=== PATIENT | female | born 1965 | race Caucasian/White ===

== ENCOUNTER 2022-03-27 11:02 | Outpatient (CLI) | payer BC, SELFPAY ==
--- OUTSIDE RECORDS SUMMARY | 2022-04-28 16:45 | XMS_ITS | Clinical Summary ---
:1965 Author Organization [facility] [facility] [employer] [facility] [place] [address] Care Team Providers Name Role Phone Julia Butts MD Primary Care Provider [phone] Allergies No known active allergies Medications Medication Sig Dispensed Refills Start Date End Date Status MULTIVITAMIN take 1 tablet 100 0 04/22/2009 Ac tive TABIndications: by oral route Well female exam once daily with routine with food gynecological exam naproxen 500 mg 60 tablet 0 08/26/2020 Active (NAPROSYN) 500 mg Scheduled tabletIndications: twice daily x Wrist pain, acute, 5 days, then right, Wrist pain, twice daily as left, Right needed forearm pain Advair Diskus Inhale 1 Puff 60 Each 5 01/25/2022 A ctive 250-50 mcg/dose by mouth twice diskus daily 12 hours inhalerIndications apart. : COPD with chronic bronchitis (HC) ipratropium-albute Inhale 1 Puff 4 g 11 02/04/2022 Active roL (combivent by mouth 4 respimat) (20-100 times daily if mcg each needed for actuation) mist Shortness Of inhalerIndications Breath or : Exacerbation of Wheezing. asthma, unspecified asthma severity, unspecified whether persistent ipratropium Inhale 2 Puffs 25.8 g 11 02/04/2022 Ac tive (Atrovent HFA) 17 by mouth 4 mcg/actuation times daily if inhalerIndications needed for : Moderate Shortness Of persistent asthma Breath. without complication albuterol Inhale 3 mL 90 mL 3 02/04/2022 Active (PROVENTIL) 0.083 (2.5 mg) via a % neb nebulizer solutionIndication every 6 hours s: Upper if needed for respiratory tract Shortness of infection, Breath 1st unspecified type, choice. COPD exacerbation (HC) varenicline Take 1 mg by 112 Tablet 0 02/04/2022 Act juan carlos (CHANTIX) 1 mg mouth in the tabletIndications: morning and 1 Tobacco abuse mg in the evening. Take with meals. varenicline Days 1-3 take 1 Packet 0 02/04/2022 04/05/20 Dis continued (CHANTIX DOSEPAK) 0.5mg once 22 ( *Med 0.5 mg (11)- 1 mg daily; Days complete/Regimen (42) 4-7 take 0.5mg compl ete/Level tabletIndications: twice daily; of care change) Routine general then increase medical to 1mg twice examination at a daily. Take health care with meals. facility polyethylene Drink 3 liters 4000 mL 0 03/10/2022 04/05/20 D iscontinued glycol-electrolyte the day before (*Med (GOLYTELY) the procedure compl ete/Regimen 236-22.74-6.74 and 1 liter 6 c omplete/Level -5.86 gram hours prior to of c are change) suspensionIndicati the procedure ons: Encounter for screening colonoscopy Active Problems Problem Noted Date Pap smear for cervical cancer screening 2022 Overview: 01/2022 NIL/HPV Negative Plan: Pap and HPV 01/2027 Colon polyp 03/25/2022 Overview: Colonoscopy 03/2022 SSA, repeat in 5 year s Reactive airway disease with wheezing, mild intermitte nt, uncomplicated 11/23/2017 Lipoma of neck 11/19/2012 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 02/28/2008 Supraspinatus tendonitis 02/28/2008 Personal history of tobacco use, presenting hazards to health 10/19/2006 Encounters Date Type Specialty Care Team Description 2022 Ancillary Procedure 2022 Travel 04/06/2022 Patient Outreach Monserrat Falcon, ACT Care Nv KIMBERLY Campbell, ACM (Engagem ent outreach attempt #3 of 3 /) 04/05/2022 Office Visit RunJulia reyna [facility] F/ U (DOD: MD Yaz 03/30/22, hypoxi a, acute asthma exacerba tion) 04/05/2022 Travel 04/04/2022 Patient Outreach Monserrat Falcon ACT Care ZENAIDA GarciaW, ACM (Engagem ent outreach attempt #2 of 3 via Way[employer] message /) 04/04/2022 Patient Outreach Monserrat Falcon ACT Care ZENAIDA GarciaW, ACM (Engagem ent outreach attempt #1 of 3 /) 03/31/2022 Patient Outreach Joy Townsend Prim alba RN Care RN Management; [facility] F/U (Post hospital) 03/30/2022 Orders Only Scanner <No scans attac hed> 03/27/2022 Orders Only Scanner <No scans attac hed> 03/27/2022 Orders Only Scanner <No scans attac hed> 03/22/2022 Procedure Only Vasu Parker Procedure (C olonoscopy) MD Jassi 03/22/2022 Travel 03/16/2022 Telephone Vasu Parker Appointment Re pepe Keene MD (Colonoscopy) 03/11/2022 Telephone Vasu Parker RESCHEDULED CO LONOSCOPY MD Jassi 03/10/2022 Telephone Vasu Parker Appointment MD Jassi 03/01/2022 Telephone Julia Butts Colorectal Cancer MD [...] Other 1 GRANDFATHER Diabetes Other 2 GRANDMOTHER Cancer-ovarian No Family History Relation Name Status Comments Father Mother (Age 60) cancer Other 1 Other 2 Social History Tobacco Use Types Packs/Day Years Used Date Former Smoker Cigarettes 0.5 Quit: 03/01/20 Smokeless Tobacco: Never Used Tobacco Cessation: Ready to Quit: No; Co unseling Given: Yes Alcohol Use Standard Drinks/Week Comments Yes 3 (1 standard drink = 0.6 oz [...] in contact with No / Unsu re 2022 10:09 AM CDT someone who was confirmed or suspected to have Coronavirus/COVID-19? 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 Respiratory Rate 12 11/27/2019 12:31 PM CDT Oxygen Saturation 96% 04/05/2022 8:16 AM CDT Inhaled Oxygen Concentration - - Weight 56.2 kg (124 lb) 04/05/2022 8:16 AM CDT Height 154.9 cm (5' 1) 02/04/2022 11:38 AM CDT Body Mass Index 23.43 02/04/2022 11:38 AM CDT Plan of Treatment Health Maintenance Due Date Last Done Comments Zoster (shingles) series for age 1004/07/2015 50+ (1 of 2) COVID-19 vaccine series (4 - 08/03/2021 06/08/2021, 021, Booster for Pfizer series) 07/23/2020 Influenza for age 50-64 03/03/2022 06/02/2017 Tetanus booster 11/13/2022 11/13/2012, 03/23/2004 BMI (ht and wt on same day) for 02/04/2023 02/04/2022, 06/10/2019, age 18+ 11/23/2017, Additional history exists Depression screening for age 12+ 02/04/2023 02/04/2022, 10/2019, 11/23/2017, Additional history exists Mammogram for age 45-75 2023 2022, 02/04/2021, 07/04/2019, Additional history exists Lipids for age 45-75 02/04/2027 02/04/2022, 05/13/2009 Pap test for age 21-65 02/04/2027 02/04/2022, 02/04/2022, 03/24/2015, Additional history exists Colonoscopy through age 75 03/22/2027 03/22/2022, Tdap Completed 11/13/2012 Hepatitis C screening for age Completed 02/04/2022 18-79 Pneumococcal series for age 19-64 Completed 02/04/2022 Procedures Procedure Name Priority Date/Time Associated Comments Diagnosis XR MAMMO RAFAELA BILAT Routine 2022 10:30 Encounter for Res ults for this SCREEN AM CDT screening procedure are i n mammogram for the results malignant neoplasm section. of breast SCAN-LABORATORY REPORT 03/30/2022 12:00 R esults for this AM CDT procedure are i n the results section. SCAN-CT INTERPRETATION 03/27/2022 12:00 AM CDT SCAN-RADIOLOGY REPORT 03/27/2022 12:00 Re sults for this AM CDT procedure are i n the results section. PATH TISSUE EXAM Routine 03/22/2022 2:25 PM Positive Resul ts for this CDT colorectal cancer procedure are in screening using the results DNA-based stool section. test COLONOSCOPY DIAGNOSTIC Routine 03/22/2022 1:12 PM Positive CDT colorectal cancer screening using DNA-based stool test COLONOSCOPY [...] REFLEX Routine 02/04/2022 1:00 PM Screening for Results for this MEASURED LDL CDT lipid disorders procedure ar e in the results section. REVENUE CYCLE ADMINISTRATOR THIN PREP PAP Routine 02/04/2022 12:30 Pap smear for Resul ts for this SCREEN IMAGED PM CDT cervical cancer procedure a re in screening the results section. HPV THIN PREP Routine 02/04/2022 12:30 Pap smear for Results f or this PM CDT cervical cancer procedure ar e in screening the results section. from Last 3 Months Results XR MAMMO RAFAELA BILAT SCREEN (2022 10:30 AM CDT) Anatomical Region Laterality Modality BREASTS, Breast Left, Breast Right Bilateral Mammo graphy Specimen (Source) Anatomical Location Collection Method / Collectio n Time Received Time / Laterality Volume Impressions 2022 2:59 PM CDT ??There is no radiographic evidence for malignancy. ??Recommend annual mammograms. MAMMOGRAM ASSESSMENT: ??ACR 1 Negative PATIENTS: You will also receive a letter with your examination results in an easy to read format. ??If you have qu estions about your results, please contact your referring provider. Narrative 2022 2:59 PM CDT For Patients: As a result of the Century Cures Act, medical imaging exams and procedure reports are released immediately into your electronic medical record. You may view this report before your referring provider. If you have questions, please contact [facility] care provider. XR MAMMO RAFAELA BILAT SCREEN [[id number]] CLINICAL HISTORY: ??This is an asymptoma tic 57 y.o. patient. INDICATION FOR EXAM: Mammogram Screening . TECHNIQUE: CC & MLO views were obtained. ??This study was evaluated with the assistance of Computer-Aided Detecti on. Breast Tomosynthesis was used in interpretation. COMPARISON FILM: Yes 02/04/11 [facility] 07/04/19 [facility] FINDINGS: ??The breasts are extremely de nse, which lowers the sensitivity of mammography. There are no dominant ma sses, suspicious micro calcifications or areas of architectural distortion. Julia Butts MD MAMMO SCAN-LABORATORY REPORT (03/30/2022 12:00 AM CDT) Narrative This result has an attachment that is no t available. Scanner OTHER SCAN-RADIOLOGY REPORT (03/27/2022 12:00 AM CDT) Narrative This result has an attachment that is no t available. Scanner OTHER SCAN-CT INTERPRETATION (03/27/2022 12:00 AM CDT) Narrative This result has an attachment that is no t available. Scanner OTHER PATH TISSUE EXAM (03/22/2022 2:25 PM CDT) Component Value Ref Test Analysis Performed At [facility] gist Range Method Time Signature Case Report Pathology Report ?Case: [id number] ? 03/24/2022 [facility] Authorizing Provider: ??Vasu Waters MD ?? Collected: ? 03/22/2022 1425 ? 5:[address] [facility] Ordering Location: ? [facility] ?? Received: ?03/22/2022 1612 ? [facility] ? Clinic ? LABORATORY Pathologist: ? Hunter Monae ? IV, MD ? Specimen: ?Ascending Col on Polyp ? Final A) COLON, ASCENDING, POLYPECTOMY: 2021 [place] Electronically Diagnosis 1. Sessile serrated adenoma 5:16 PM CDT LABORATORY-CE signed by 2. Negative for overt dysplasia NTRMARY LOU Monae, 3. Per the colonoscopy report: LABORATORY Hunter Calvo ?? a. Polyp size: 5 mm MD VITA on ?? b. Resection: Complete 03/24/2022 at ?? c. Retrieval: Complete 5:16 PM Clinical Ms. Camacho is 03/24/2022 [place] Information a 56 y.o. who 5:16 PM CDT LABORATORY-C E presents with N[facility]AL a positive LABORATORY Cologuard test. Gross A) Received in formalin is a mitchell mucosal fragment measuring 6 mm in greatest dimension, which is entirely submitted in one cassette. It is labeled with the patient's name and designated A. 03/24/2022 [place] Description 5:16 PM CDT LABORATORY-CE Terrance Amaya 03/23/2022 1:42 PM [facility] LABORATORY Microscopic The final 03/24/2022 [place] Description diagnosis is 5:16 PM CDT LABORATORY-CE based on N[facility] microscopic LABORATORY examination of appropriate sections of all specimens. Additional 03/24/2022 [place] Information Interpreted at [facility], Central Laboratory - [address], [place] [address] 5:16 PM CDT LABORATORY-CE N[facility]AL LABORATORY Specimen Anatomical Collection Method Collection Time Receive d Time (Source) Location / / Volume Laterality Other (Ascending Non-Blood / 03/22/2022 2:25 PM 03/22 4:12 Colon Polyp) Unknown CDT PM CDT Vasu Parker MD PATHOLOGY/CYTOLOGY Performing Organization Address City/State/ZIP Code Phon e Number [facility] [address] [place] [address] LABORATORY-CENTRAL 2000 LABORATORY COLONOSCOPY (03/22/2022 12:07 PM [...] Recommendation: - Patient has a contact number availabl e for emergencies. The signs and symptoms of potential delayed complicat ions were discussed with the patient. Return to normal activities to [place]. Written discharge instructions were provided to the [...] 12:07 PM Procedure Code(s): --- Professional --- 58763, Colonoscopy, flexible; with mimi rizwan of tumor(s), polyp(s), or other lesion(s) by snare technique Diagnosis Code(s): --- Professional --- D12.2, Benign neoplasm of ascending col on R19.5, Other fecal abnormalities CPT copyright 2020 [employer]. All rights reserved. The codes documented in this report are preliminary and upon ed educational aide review may be revised to meet current [...] REFLEX MEASURED LDL (02/04/2022 1:00 PM CDT) [facility] Method Time Signature CHOLESTEROL,TOTAL 220 (H) 100 - 199 02/05/2022 [facility] mg/dL 8:53 AM CDT LABORATORY-CAL[facility] TRAL LABORATORY TRIGLYCERIDES 118 <150 02/05/2022 [facility] mg/dL 8:53 AM CDT LABORATORY-[facility] TRAL LABORATORY HDL CHOLESTEROL 61 >40 mg/dL 02/05/2022 [facility] 8:53 AM CDT LABORATORY-[facility] TR[facility] LABORATORY NON-HDL 159 (H) <145 02/05/2022 [facility] CHOLESTEROL mg/dl 8:53 AM CDT LABORATORY-[facility] TR[facility] LABORATORY CHOL/HDL RATIO 3.61 <4.50 02/05/2022 [facility] 8:53 AM CDT LABORATORY-[facility] TRAL LABORATORY LDL CHOLESTEROL 135 (H) <=130 02/05/2022 [facility] mg/dL 8:53 AM CDT LABORATORY-[facility] TRAL LABORATORY VLDL CHOLESTEROL 24 <=30 02/05/2022 [facility] mg/dL 8:53 AM CDT LABORATORY-[facility] TRAL LABORATORY PROVIDER ORDERED RANDOM 02/05/2022 [facility] STATUS 8:53 AM CDT LABORATORY-[facility] TRAL LABORATORY Specimen Anatomical Collection Method / Collection Time Recei manny Time (Source) Location / Volume Laterality Blood BLOOD SPECIMEN / Venipuncture / 02/04/2022 1:00 2021 1:02 Unknown Unknown PM CDT PM CDT Julia Butts MD CHEMISTRY Performing Organization Address City/State/ZIP Code Phon e Number [facility] [address] [place] [address] LABORATORY-CENTRAL 2000 LABORATORY GLUCOSE, RANDOM (02/04/2022 1:00 PM CDT) athologist Signature GLUCOSE,RANDOM 91 65 - 140 02/04/2022 [facility] mg/dL 1:10 PM CDT [facility] Specimen Anatomical Collection Method / Collection Time Recei manny Time (Source) Location / Volume Laterality Blood BLOOD SPECIMEN / Venipuncture / 02/04/2022 1:00 2021 1:02 Unknown Unknown PM CDT PM CDT Julia Butts MD CHEMISTRY Performing Organization Address City/[facility] Phon e Number [facility] [address] [place] [address] ANTI HCV (02/04/2022 1:00 PM CDT) [facility] Method Time [facility] HEPATITIS C Non-Reacti Non-Reacti 02/05/2022 [facility] ANTIBODY ve ve 11:43 AM CDT LABORATORY-[facility] TRAL LABORATORY Comment: Antibodies to HCV not detected; does not exclude the possibility of exposure to HCV. Specimen Anatomical Collection Method / Collection Time Recei manny Time (Source) Location / Volume Laterality Blood BLOOD SPECIMEN / Venipuncture / 02/04/2022 1:00 2021 1:02 Unknown Unknown PM CDT PM CDT Julia Butts MD SEND OUTS Performing Organization Address City/[facility] Phon e Number [facility] [address] [place] [address] LABORATORY-CENTRAL 2000 LABORATORY REVENUE CYCLE ADMINISTRATOR THIN PREP PAP SCREEN IMAGED (02/04/2022 12:30 PM CDT) Component Value Ref Test Analysis Performed At [facility] Method Time [facility] Case Report Gynecologic Cytology Report ? Case: [id number] ? 02/22/2022 [facility] Authorizing Provider: ??Julia Centeno, ??Collected: ? 02/04/2022 1230 ? 12:40 PM HEALTH ? MD ? CDT LABORATORY-C Ordering Location: ? [facility] ?? Received: ?02/04/2022 1436 ? [facility] ? Clinic ? LABORATORY First Screen: ? Vivek Haley ? Specimen: ?REVENUE CYCLE ADMINISTRATOR ThinPrep Vial Screening, Cervical ? INTERPRETATION NEGATIVE [...] LABORATORY Abnormal Pap No 02/22/2022 [facility] or [place] Bx in 12:40 PM HEALTH last 5 years CDT LABORATORY-C ENTRAL LABORATORY Menstrual Postmenopausal 02/22/2022 [facility] Status 12:40 PM HEALTH CDT LABORATORY-C ENTRAL LABORATORY [place] Bx Done No 02/22/2022 [facility] Today 12:40 PM HEALTH CDT LABORATORY-C ENTRAL LABORATORY Additional None given 02/22/2022 [facility] Information 12:40 PM HEALTH CDT LABORATORY-C ENTRAL LABORATORY Comment: Cytology is screened at [facility], Central Laboratory - [address], [place] [address] and [facility] - [address] [place] [address] and [facility] - [address] [place] [address] Interpreted at [facility], Central Laboratory - [address], [place] [address] Automated Review Successful 02/22/2022 12:40 [facility] ABORATORY Comment: Specimen processed successfully by automated portable power tool repairer device, ThinPrep Imaging System, [employer] ANCILLARY TESTING HPV Ordered, 02/22/2022 12:40 [facility] REVENUE CYCLE ADMINISTRATOR Please see CDT LABORATORY-CENTRAL separate report LABORATORY Note The pap test is a 02/22/2022 12:40 [facility] screening PM CDT LABORATORY-CENTRAL technique, not [...] Julia Butts MD PATHOLOGY/CYTOLOGY Performing Organization Address City/State/ZIP Code Phon e Number [facility] [address] [place] [address] LABORATORY-CENTRAL 2000 LABORATORY HPV HIGH RISK (02/04/2022 12:30 PM CDT) Analysis Performed At Patho logist Time Signature TYPE 16 Negative Negative 02/09/2022 [facility] 11:45 AM CDT LABORATORY-[facility] TRAL LABORATORY TYPE 18 Negative Negative 02/09/2022 [facility] 11:45 AM CDT LABORATORY-[facility] TRAL LABORATORY OTHER HIGH Negative Negative 02/09/2022 [facility] [employer] RISK TYPES 11:45 AM CDT LABORATORY-[facility] TRAL LABORATORY Specimen Anatomical Collection Method Collection Time Receive d Time (Source) Location / / Volume Laterality Other (Cervical) Non-Blood / 02/04/2022 12:30 022 3:30 Unknown PM CDT PM CDT Narrative [facility] LABORATORY-CENTRAL LABORAT ORY - 02/09/2022 11:45 AM CDT HPV types 16, 18, 31, 33, 35, 39, 45, 51, 52, 56, 58, 59, 66 and 68 DNA were undetectable or below the pre-set threshold. Methodology: Jeyson Lia 4800 HPV Test Julia Butts MD MICROBIOLOGY Performing Organization Address City/[facility] Code Phon e Number [facility] [address] [place], [place] [address] [address] LABORATORY-CENTRAL 2000 LABORATORY from Last 3 Months Insurance Payer Benefit Plan / Subscriber ID Effective Dates Phone Addre ss Type Group [employer] OF [id number] 2020-Present [address] [place] [address] Care Teams Linter Operator Relationship Specialty Start Date End Date Julia Butts MD PCP - General 10/27/05 [address] [place], [place] [id number]
== END 2022-03-27 11:03 | disposition home or self-care (01) ==
LOC: AMB 04-28 16:43
PROVIDERS: PCP Family Medicine; Visit Provider Family Medicine
DX: R06.09 Other forms of dyspnea (principal)
CPT/HCPCS: A0425; A0427

== ENCOUNTER 2022-03-27 11:33 | Inpatient (IN) | payer BC, SELFPAY ==
[2022-03-27] VITALS (7 sets, daily range): BP systolic 124–129; BP diastolic 70–73; PULSE 86–101; RESP 18–24; TEMP 36.6–36.9; O2SAT 88–95; BMI 24.6; BMI 24.8
[2022-03-27] MEDS: IPRAT-ALBUT 0.5-2.5 MG/3 ML NEB 1 NEB IH (12:12)
--- NOTE | 2022-03-27 12:18 | ED.GENADULT ---
HPI - General Adult General Chief complaint: Shortness of Breath/Dyspnea Stated complaint: Low oxygen Time Seen by Provider: 03/27/22 11:38 Source: patient Mode of arrival: EMS Limitations: no limitations History of Present Illness HPI narrative: 56-year-old female coming in today for shortness of breath. Patient started getting sick about 5 days ago with a cough, chills and body aches. Her symptoms have largely resolved aside from her cough that continues. She went into the urgent care today for an evaluation and found to be hypoxic with an oxygen saturation of 85% on room air. After a DuoNeb she went up to 88% on room air. She was placed on 2 L nasal cannula in that brought her into the low 90s. She states that again her chills have resolved she is no longer achy. She did stop smoking 3 weeks ago. She denies any sick contacts that she is aware of. She does have a history of asthma. She takes Atrovent and Combivent at home. Appetite has been less than usual. COVID and flu testing done in the urgent care today were both negative, chest x-ray was clear. Related Data Home Medications Medication Instructions Recorded Confirmed albuterol sulfate 2.5 mg/3 mL 2.5 mg inhalation Q6H PRN 03/27/22 03/27/22 (0.083 %) solution for nebulization bronchospasm fluticasone 250 mcg-salmeterol 50 1 inh inhalation Q12H 03/27/22 03/27/22 mcg/dose blistr powdr for inhalation (Advair Diskus) ipratropium 20 mcg-albuterol 100 1 puff inhalation Q6H PRN wheezing 03/27/22 03/27/22 mcg/actuation mist for inhalation (Combivent Respimat) ipratropium bromide 17 1 inh inhalation Q6H PRN 03/27/22 03/27/22 mcg/actuation HFA aerosol inhaler (Atrovent HFA) varenicline 0.5 mg (11)-1 mg (42) 1 ea PO BIDWM 03/27/22 03/27/22 tablets in a dose pack varenicline 1 mg tablet 1 mg PO BIDWM 03/27/22 03/27/22 Allergies Allergy/AdvReac Type Severity Reaction Status Date / Time No Known Drug Allergies Allergy Verified 03/27/22 10:16 Review of Systems Status of ROS: Reports: 10 or more systems reviewed and unremarkable except as noted in History and below [facility] Medical History (Updated 03/27/22 @ 15:33 by Kristen Angel MD) Ectopic Moderate persistent asthma Shortness of breath Surgical History (Updated 03/27/22 @ 14:27 by Josie Black MD) History of bunionectomy Social History (Updated 03/27/22 @ 12:33 by Radha Yanes PA-C) Smoking Status: Former smoker What tobacco products do you use: cigarettes Smoking quit date/years: <= 15 years ago Do you use any of these nicotine containing products: None Second hand tobacco smoke exposure: No How often do you have a drink containing alcohol: 2-3 times a week How many standard drinks containing alcohol do you have on a typical day: 1 or 2 How often do you have six or more drinks on one occasion: Never AUDIT-C Alcohol total score: 3 Non-prescribed substance use: denies use Exam Narrative: Exam Narrative: Well-nourished well-developed patient in no acute distress. Alert and oriented. Answers questions appropriately. Mood and affect are appropriate. Thoughts are goal oriented and rational. No tangential or magical thinking noted. Patient is slightly tachypneic HEENT: Normocephalic atraumatic. Pupils are equally round reactive to light. Extraocular muscles are intact. Conjunctivae are moist without any icterus noted. Moist mucous membranes. Posterior pharynx is normal. Neck is soft without any lymphadenopathy or thyromegaly. No masses are appreciated. Cardiovascular: Heart is regular rate and rhythm S1 and S2 are present without any murmurs. Lungs: Decreased breath sounds bilaterally. No wheezing or rhonchi appreciated today. Abdomen: Soft and nontender nondistended with normal bowel sounds. Extremities: Bilateral lower extremities are without edema. Normal DP and PT pulses. Skin: Well perfused. Const: Vital Signs, click to edit/add: Vital Signs - 24 hr 03/27/22 11:37 03/27/22 13:03 Temperature 98.2 F Pulse Rate [Right Pulse Oximeter] 95 86 Respiratory Rate 24 18 Blood Pressure [Ri ght Upper Arm] 124/70 124/70 Pulse Oximetry 95 88 Oxygen Delivery Me thod Nasal Cannula Nasal Cannula Oxygen Flow Rate 2 2 Course Reevaluation(s) Reevaluation #1: Patient received a DuoNeb and IV Solu-Medrol after an IV was established. We attempted to ambulate her, with oxygen she remained at 92%. However once oxygen was turned off patient dropped to 82% on room air. Did not repeat her x-ray which was on the at the urgent care and did not repeat COVID and flu at this time. Her lab work did not show an elevated white count but did show elevated platelet count just above 600,000. Her CRP was also elevated at 7.4. We did follow-up with a D-dimer which was only mildly elevated at 0.84. Discussed patient with Dr. Black, who will be accepting for admission and will likely do a CT scan to rule out PE on the floor. Vital Signs Vital signs: Initial Vital Signs Temperature 98.2 F 03/27/22 11:37 Temperature Source Temporal Artery Scan 03/27/22 11:37 Pulse Rate 95 03/27/22 11:37 Respiratory Rate 24 03/27/22 11:37 Blood Pressure 124/70 03/27/22 11:37 Blood Pressure Mean 88 03/27/22 11:37 Blood Pressure Position Sitting 03/27/22 11:37 Pulse Oximetry 95 03/27/22 11:37 Oxygen Delivery Method 03/27/22 11:37 Oxygen Flow Rate 2 03/27/22 11:37 Vital Signs Temperature 98.2 F 03/27/22 11:37 Pulse Rate 95 03/27/22 11:37 Respiratory Rate 24 03/27/22 11:37 Blood Pressure 124/70 03/27/22 11:37 Pulse Oximetry 95 03/27/22 11:37 Oxygen Delivery Method 03/27/22 11:37 Oxygen Flow Rate 2 03/27/22 11:37 Temperature 98.2 F 03/27/22 11:37 Pulse Rate 86 03/27/22 13:03 Respiratory Rate 18 03/27/22 13:03 Blood Pressure 124/70 03/27/22 13:03 Pulse Oximetry 88 03/27/22 13:03 Oxygen Delivery Method 03/27/22 13:03 Oxygen Flow Rate 2 03/27/22 13:03 Medical Decision Making MDM Narrative Medical decision making narrative: 56-year-old female with an acute asthma exacerbation and hypoxia. Patient will be admitted for further management. Medical Records Medical records reviewed: Yes I reviewed the patient's medical records Lab Data Lab results reviewed: Yes I reviewed the patient's lab results Labs: Lab Results 03/27/22 03/27/22 03/27/22 Range/Units 12:18 12:18 13:03 WBC 10.27 (4.50-11.00) K/uL RBC 3.67 L (4.00-5.20) m/uL Hgb 10.9 L (12.0-16.0) gm/dL Hct 34.0 (33.0-51.0) % MCV 93 (80-100) fL MCH 30 (26-34) pg MCHC 32 (32-36) gm/dL RDW Coeff of Umm 13.8 (11.5-15.5) % Plt Count 617 H (140-440) K/uL Neut % (Auto) 58.8 (42.0-72.0) % Lymph % (Auto) 26.9 (20-44) % Hancock % (Auto) 10.8 (0.0-11.0) % Eos % (Auto) 1.8 (0.0-7.0) % Baso % (Auto) 0.5 (0.0-3.0) % Neut # (Auto) 6.05 (1.7-7.0) K/uL Lymph # (Auto) 2.76 (0.90-2.90) K/uL Hancock # (Auto) 1.10 H (0.00-0.90) K/UL Eos # (Auto) 0.18 (0.00-0.50) K/uL Baso # (Auto) 0.05 (0.00-0.30) K/uL Abs Immat Gran (auto) 0.12 (0.00-0.30) K/uL D-Dimer Quant (PE/DVT) 0.84 H (0.00-0.50) ug/ml Sodium 140 (135-149) mmol/L Potassium 3.7 (3.6-5.1) mmol/L Chloride 101 (96-114) mmol/L Carbon Dioxide 32 (20-32) mmol/L BUN 8 (7-30) mg/dL Creatinine 0.5 (0.5-1.5) mg/dL Estimated Creat Clear 90.24 Estimated GFR 110 ml/min Glucose 97 (60-115) mg/dL Calcium 8.6 (8.4-10.6) mg/dL C-Reactive Protein 7.4 H (0.5-1.0) mg/dL Discharge Plan Discharge Clinical Impression: Asthma with acute exacerbation, Hypoxia Patient Disposition: Admitted As Inpatient Condition: Stable
[2022-03-27] MEDS: METHYLPREDNISOLONE SOD SUCC 62.5 MG/ML (125) 125 MG IVP ×2 (12:25→19:58)
[2022-03-27 12:26] LABS: Basophils Absolute Auto 0.05 K/uL (0.00-0.30); Basophils Percent Auto 0.5 % (0.0-3.0); Eosinophils Absolute Auto 0.18 K/uL (0.00-0.50); Eosinophils Percent Auto 1.8 % (0.0-7.0); Hemoglobin* 10.9 gm/dL (12.0-16.0); Immature Granulocytes Abs Auto 0.12 K/uL (0.00-0.30); Lymphocytes Absolute Auto 2.76 K/uL (0.90-2.90); Lymphocytes Percent Auto 26.9 % (20-44); Mean Corpuscular HGB Conc 32 gm/dL (32-36); Mean Corpuscular Hemoglobin 30 pg (26-34); Mean Corpuscular Volume 93 fL (80-100); Monocytes Percent Auto 10.8 % (0.0-11.0); Neutrophils Absolute Auto 6.05 K/uL (1.7-7.0); Neutrophils Percent Auto 58.8 % (42.0-72.0); Platelet Count* 617 K/uL (140-440); RDW Coefficient of Variation % 13.8 % (11.5-15.5); Red Blood Count 3.67 m/uL (4.00-5.20); White Blood Count* 10.27 K/uL (4.50-11.00)
[2022-03-27 12:30] LABS: Slide Review Reflex No
[2022-03-27 12:34] LABS: Chloride* 101 mmol/L (96-114); Sodium* 140 mmol/L (135-149)
[2022-03-27 12:35] LABS: Potassium* 3.7 mmol/L (3.6-5.1)
[2022-03-27 12:37] LABS: Creatinine* 0.5 mg/dL (0.5-1.5); Est. Creatinine Clearance* 90.24; Estimated Glomerular Filt Rate 110 ml/min
[2022-03-27 12:38] LABS: Blood Urea Nitrogen* 8 mg/dL (7-30); Calcium* 8.6 mg/dL (8.4-10.6); Carbon Dioxide* 32 mmol/L (20-32); Glucose* 97 mg/dL (60-115)
--- OUTSIDE RECORDS SUMMARY | 2022-03-27 12:39 | XMS_ITS | Clinical Summary ---
:1965 Author Organization [facility] [facility] [place] [address] Care Team Providers Name Role Phone Julia Butts MD Primary Care Provider [phone] Allergies No known active allergies Medications Medication Sig Dispensed Refills Start Date End Date Status MULTIVITAMIN take 1 tablet by 100 0 04/22/2009 Active TABIndications: Well oral route once female exam with daily with food routine gynecological exam naproxen (NAPROSYN) 500 mg Scheduled 60 tablet 0 08/26/2020 Active 500 mg twice daily x 5 tabletIndications: days, then twice Wrist pain, acute, daily as needed right, Wrist pain, left, Right forearm pain Advair Diskus 250-50 Inhale 1 Puff by 60 Each 5 01/25/2022 Active mcg/dose diskus mouth twice daily inhalerIndications: 12 hours apart. COPD with chronic bronchitis (HC) ipratropium-albuteroL Inhale 1 Puff by 4 g 11 02/04/2022 Active (combivent respimat) mouth 4 times (20-100 mcg each daily if needed actuation) mist for Shortness Of inhalerIndications: Breath or Exacerbation of Wheezing. asthma, unspecified asthma severity, unspecified whether persistent ipratropium (Atrovent Inhale 2 Puffs by 25.8 g 11 02/04/2022 Active HFA) 17 mcg/actuation mouth 4 times inhalerIndications: daily if needed Moderate persistent for Shortness Of asthma without Breath. complication albuterol (PROVENTIL) Inhale 3 mL (2.5 90 mL 3 02/04/2022 Active 0.083 % neb mg) via a solutionIndications: nebulizer every 6 Upper respiratory hours if needed tract infection, for Shortness of unspecified type, COPD Breath 1st exacerbation (HC) choice. varenicline (CHANTIX Days 1-3 take 1 Packet 0 02/04/2022 Active DOSEPAK) 0.5 mg (11)- 0.5mg once daily; 1 mg (42) Days 4-7 take tabletIndications: 0.5mg twice Routine general daily; then medical examination at increase to 1mg a health care facility twice daily. Take with meals. varenicline (CHANTIX) Take 1 mg by 112 Tablet 0 02/04/2022 Active 1 mg mouth in the tabletIndications: morning and 1 mg Tobacco abuse in the evening. Take with meals. polyethylene Drink 3 liters 4000 mL 0 03/10/2022 A ctive glycol-electrolyte the day before (GOLYTELY) the procedure and [id number] -5.86 1 liter 6 hours gram prior to the suspensionIndications: procedure Encounter for screening colonoscopy Hospital, Clinic, or Other Ordered Dose Route Frequency Start Date End Date Status Facility Administered Medication fentaNYL (PF) 100 mcg 100 mcg IV ONE TIME 03/22/2022 022 Ended injection (SUBLIMAZE)Indications: Positive colorectal cancer screening using DNA-based stool test midazolam (PF) (VERSED) 2 mg IV ONE TIME 03/22/202203/22 Ended injection 2 mgIndications: Positive colorectal cancer screening using DNA-based stool test Active Problems Problem Noted Date Colon polyp 03/25/2022 Overview: Colonoscopy 03/2022 SSA, repeat in 5 year s Reactive airway disease with wheezing, mild intermitte nt, uncomplicated 11/23/2017 Lipoma of neck 11/19/2012 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 02/28/2008 Supraspinatus tendonitis 02/28/2008 Personal history of tobacco use, presenting hazards to health 10/19/2006 Encounters Date Type Specialty Care Team Description 03/22/2022 Procedure Only Vasu Parker Proc edure (Colonoscopy) 03/22/2022 Travel 03/16/2022 Telephone Vasu Parker Appoin tment Reminder MD (Colonoscopy) 03/11/2022 Telephone Vasu Parker RESCHE DULED COLONOSCOPY MD 03/10/2022 Telephone Vasu Parker Appoin tment MD 03/01/2022 Telephone Julia Butts Colorectal Cancer MD [facility] Screening (Posi tive cologuard ) 02/21/2022 Orders Only Scanner <No scans attac hed> 02/04/2022 Office Visit Julia Butts Physical; D erm Problem MD Yaz (Skin lesion on chest); Immunization/In jection 02/04/2022 Travel from Last 3 Months Immunizations Name Administration Dates Next Due Influenza, IIV4 06/02/2017 Pneumococcal Conj 20-valent (Prevnar 20) 02/04/2022 Td (Age >=7 Years) 03/23/2004 Tdap 11/13/2012 Family History Medical History Relation Name Comments Good Health Father Alcohol/Drug Mother Cancer-breast Mother AND THROAT CA, a ge 59 Heart Disease Other 1 GRANDFATHER Diabetes Other 2 GRANDMOTHER Relation Name Status Comments Father Mother (Age 60) cancer Other 1 Other 2 Social History Tobacco Use Types Packs/Day Years Used Date Current Some Day Smoker Cigarettes 0.5 Smokeless Tobacco: Never Used Tobacco Cessation: Ready to Quit: No; Co unseling Given: Yes Alcohol Use Standard Drinks/Week Comments Not Currently 3 (1 standard drink = 0.6 oz pure alcoho l) Alcohol Habits Answer Date Recorded How often do you have a drink containing alcohol? 2-3 times a week 12/05/2019 How many drinks containing alcohol do you have on a 1 or 2 12/05/2019 typical day when you are drinking? How often do you have six or more drinks on one Never 12/05/2019 occasion? Comment: Not asked Sex Assigned at Date Recorded Not on file COVID-19 Exposure Response Date Recorded In the last 10 days, have you been in contact with No / Unsu re 03/22/2022 1:11 PM CDT someone who was confirmed or suspected to have Coronavirus/COVID-19? 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 Respiratory Rate 11/27/2019 12:31 PM CDT Oxygen Saturation 93% 02/04/2022 11:38 AM CDT Inhaled Oxygen Concentration - - Weight 57.2 kg (126 lb) 02/04/2022 11:38 AM CDT Height 154.9 cm (5' 1) 02/04/2022 11:38 AM CDT Body Mass Index 23.81 02/04/2022 11:38 AM CDT Plan of Treatment Health Maintenance Due Date Last Done Comments Zoster (shingles) series for age 1004/07/2015 50+ (1 of 2) COVID-19 vaccine series (4 - 10/07/2021 06/08/2021, 021, Booster for Pfizer series) 07/23/2020 Mammogram for age 45-75 02/04/2022 02/04/2021, 07/04/2019, 10/12/2016, Additional history exists Influenza for age 50-64 03/03/2022 06/02/2017 Tetanus booster 11/13/2022 11/13/2012, 03/23/2004 BMI (ht and wt on same day) for 02/04/2023 02/04/2022, 06/0 10/2019, age 18+ 11/23/2017, Additional history exists Depression screening for age 12+ 02/04/2023 02/04/2022, 10/2019, 11/23/2017, Additional history exists Pap test for age 21-65 02/04/2025 02/04/2022, 02/04/2022, 03/24/2015, Additional history exists Lipids for age 45-75 02/04/2027 02/04/2022, 05/13/2009 Colonoscopy through age 75 03/22/2027 03/22/2022, Tdap Completed 11/13/2012 Hepatitis C screening for age Completed 02/04/2022 18-79 Pneumococcal series for age 19-64 Completed 02/04/2022 Procedures Procedure Name Priority Date/Time Associated Comments Diagnosis PATH TISSUE EXAM Routine 03/22/2022 2:25 PM Positive colorecta l Results for this CDT cancer screening procedure a re in using DNA-based the results stool test section. COLONOSCOPY Routine 03/22/2022 1:12 PM Positive colorectal DIAGNOSTIC CDT cancer screening using DNA-based stool test COLONOSCOPY 03/22/2022 12:07 Results for this PM CDT procedure are i n the results section. SCAN-FECAL TEST DNA 02/21/2022 12:00 (COLOGUARD) AM CDT ANTI HCV Routine 02/04/2022 1:00 PM Encounter for Results for this CDT hepatitis C procedure are i n screening test for the resul ts low risk patient section. GLUCOSE, RANDOM Routine 02/04/2022 1:00 PM Family history of R esults for this CDT diabetes mellitus procedure are in the results section. LIPID PANEL W REFLEX Routine 02/04/2022 1:00 PM Screening for lipid Results for this MEASURED LDL CDT disorders procedure are i n the results section. APPEALS AND GENERALIST CLERK THIN PREP PAP Routine 02/04/2022 12:30 Pap smear for Resul ts for this SCREEN IMAGED PM CDT cervical cancer procedure a re in screening the results section. HPV THIN PREP Routine 02/04/2022 12:30 Pap smear for Results f or this PM CDT cervical cancer procedure ar e in screening the results section. from Last 3 Months Results PATH TISSUE EXAM (03/22/2022 2:25 PM CDT) Component Value Ref Test Analysis Performed At [facility] gist Range Method Time Signature Case Report Pathology Report ?Case: [id number] ? 03/24/2022 [facility] Authorizing Provider: ??Vasu Waters MD ?? Collected: ? 03/22/2022 1425 ? 5:16 PM CDT LABOR ORY- Ordering Location: ? [facility] ?? Received: ?03/22/2022 1612 ? [facility] ? Clinic ? LABORATORY Pathologist: ? Hunter Monae ? IV, MD ? Specimen: ?Ascending Col on Polyp ? Final A) COLON, ASCENDING, POLYPECTOMY: 2021 [facility] Electronically Diagnosis 1. Sessile serrated adenoma 5:16 PM CDT LABORATORY-CE signed by 2. Negative for overt dysplasia NTRAL Letha, 3. Per the colonoscopy report: LABORATORY Hunter Calvo ?? a. Polyp size: 5 mm MD VITA on ?? b. Resection: Complete 03/24/2022 at ?? c. Retrieval: Complete 5:16 PM Clinical Ms. Camacho is 03/24/2022 [facility] Information a 56 y.o. who 5:16 PM CDT LABORATORY-C E presents with NTRAL a positive LABORATORY Cologuard test. Gross A) Received in formalin is a mitchell mucosal fragment measuring 6 mm in greatest dimension, which is entirely submitted in one cassette. It is labeled with the patient's name and designated A. 03/24/2022 [facility] Description 5:16 PM CDT LABORATORY-CE Terrance Amaya 03/23/2022 1:42 PM [facility] LABORATORY Microscopic The final 03/24/2022 [facility] Description diagnosis is 5:16 PM CDT LABORATORY-CE based on NTRAL microscopic LABORATORY examination of appropriate sections of all specimens. Additional 03/24/2022 [facility] Information Interpreted at [facility], Central Laboratory - [address], [place] [address] 5:16 PM CDT LABORATORY-CE NTRAL LABORATORY Specimen Anatomical Collection Method Collection Time Receive d Time (Source) Location / / Volume Laterality Other (Ascending Non-Blood / 03/22/2022 2:25 PM 03/22 4:12 Colon Polyp) Unknown CDT PM CDT Vasu Parker MD PATHOLOGY/CYTOLOGY Performing Organization Address City/State/ZIP Code Phon e Number [facility] [address] [place] [address] LABORATORY-CENTRAL 2000 LABORATORY COLONOSCOPY (03/22/2022 12:07 PM CDT) Specimen (Source) Anatomical Collection Method Collection Time Re ceived Time Location / / Volume Laterality 03/22/2022 12:07 PM CDT Narrative This result has an attachment that is no t available. Transcriptions Vasu Parker MD - 03/22/2022 2: 37 PM CDT Patient Name: Margoth Camacho Procedure Da te: 03/22/2022 Gender: Female Date of : 1965 Admit Type: Outpatient Procedure: Colonoscopy Proceduralist: Vasu Parker MD , Shanti Callahan, ORALIA (Nurse), Radha Sierra (Nurse) Referring MD: Julia Butts Indications/Pre-Op Diagnosis: This is th e patient's first colonoscopy, Positive Cologuard test Medications: Fentanyl 100 micrograms IV, Midazolam 2 mg IV, The level of sedation administered was moderate Procedure Description: The patient had risks, benefits and alt ernatives explained to and gave informed consent. The patient had a sta ble cardiopulmonary status and judged an adequate candidate for consci ous sedation. The colonoscope was passed through the anus and advanced to the cecum, identified by appendiceal orifice and i leocecal valve. The colonoscopy was performed without difficulty. The p atient tolerated the procedure well. The quality of the bowel preparat ion was good. The ileocecal valve, appendiceal orifice, and rectum were photographed. Complications: No immediate complication s. Estimated Blood Loss & Specimen: Estimated blood loss: none. Specimen co llected - Yes and sent to Laboratory Findings: The perianal and digital rectal examina tions were normal. A 5 mm polyp was found in the ascending colon. The polyp was sessile. The polyp was removed with a cold snare . Resection and retrieval were complete. The exam was otherwise without abnormal ity. Impressions/Post-Op Diagnosis: - One 5 mm polyp in the ascending colon , removed with a cold snare. Resected and retrieved. - The examination was otherwise normal. Recommendation: - [facility]. The signs and symptoms of potential delayed complicat ions were discussed with the patient. Return to normal activities to [place]. Written discharge instructions were provided to the patie nt. - Resume previous diet. - Continue present medications. - Await pathology results. - Repeat colonoscopy for surveillance b ased on pathology results. Moderate Sedation: A time out was performed before the pro cedure. Moderate (conscious) sedation was administered by the endosc opy nurse and supervised by the endoscopist. The following parameters w ere monitored: oxygen saturation, heart rate, blood pressure, EKG, CO2, r espiratory rate, adequacy of pulmonary ventilation and reponse to ca re. Please refer to the patient's medical r ecord flowsheets and nursing notes for moderate sedation details. Total physician intraservice time was 2 5 minutes. Vasu Parker MD 03/22/2022 2:37:24 PM This report has been signed electronical ly. Note Initiated On: 03/22/2022 12:07 PM Procedure Code(s): --- Professional --- 03473, Colonoscopy, flexible; with mimi rizwan of tumor(s), polyp(s), or other lesion(s) by snare technique Diagnosis Code(s): --- Professional --- D12.2, Benign neoplasm of ascending col on R19.5, Other fecal abnormalities CPT copyright 2020 [employer]. All rights reserved. The codes documented in this report are preliminary and upon service and repair supervisor review may be revised to meet current compliance re quirements. Scope In: 2:08:49 PM Scope Withdrawal Time 0 hours 10 minutes 2 seconds Scope Out: 2:31:43 PM Vasu Parker MD PROCEDURE ORD SCAN-FECAL TEST DNA (COLOGUARD) (02/21/2022 12:00 AM CDT) Narrative This result has an attachment that is no t available. Scanner OTHER (ABNORMAL) LIPID PANEL W REFLEX MEASURED LDL (02/04/2022 1:00 PM CDT) [facility] Method Time Signature CHOLESTEROL,TOTAL 220 (H) 100 - 199 02/05/2022 [facility] mg/dL 8:53 AM CDT LABORATORY-[facility] TRAL LABORATORY TRIGLYCERIDES 118 <150 02/05/2022 [facility] mg/dL 8:53 AM CDT LABORATORY-[facility] TR[facility] LABORATORY HDL CHOLESTEROL 61 >40 mg/dL 02/05/2022 [facility] 8:53 AM CDT LABORATORY-[facility] TR[facility] LABORATORY NON-HDL 159 (H) <145 02/05/2022 [facility] CHOLESTEROL mg/dl 8:53 AM CDT LABORATORY-[facility] TR[facility] LABORATORY CHOL/HDL RATIO 3.61 <4.50 02/05/2022 [facility] 8:53 AM CDT LABORATORY-[facility] TRAL LABORATORY LDL CHOLESTEROL 135 (H) <=130 02/05/2022 [facility] mg/dL 8:53 AM CDT LABORATORY-[facility] TR[facility] LABORATORY VLDL CHOLESTEROL 24 <=30 02/05/2022 [facility] mg/dL 8:53 AM CDT LABORATORY-[facility] TRAL LABORATORY PROVIDER ORDERED RANDOM [facility]20[facility] AM [facility]T LAB[facility] TR[facility] LABORATORY Specimen Anatomical Collection Method / Collection Time Recei manny Time (Source) Location / Volume Laterality Blood BLOOD SPECIMEN / Venipuncture / 02/04/2022 1:00 2021 1:02 Unknown Unknown PM CDT PM CDT Julia Butts MD CHEMISTRY Performing Organization Address City/State/ZIP Code Phon e Number [facility] [address] [place] [address] LABORATORY-CENTRAL 2000 LABORATORY GLUCOSE, RANDOM (02/04/2022 1:00 PM CDT) athologist Signature GLUCOSE,RANDOM 91 65 - 140 02/04/2022 [facility] mg/dL 1:10 PM CDT [facility] Specimen Anatomical Collection Method / Collection Time Recei manny Time (Source) Location / Volume Laterality Blood BLOOD SPECIMEN / Venipuncture / 02/04/2022 1:00 2021 1:02 Unknown Unknown PM CDT PM CDT Julia Butts MD CHEMISTRY Performing Organization Address City/[facility]/ZIP Code Phon e Number [facility] [address] [place] [address] ANTI HCV (02/04/2022 1:00 PM CDT) [facility] Method Time Signature HEPATITIS C Non-Reacti Non-Reacti 02/05/2022 [facility] ANTIBODY ve ve 11:43 AM CDT LABORATORY-[facility] TRAL LABORATORY Comment: Antibodies to HCV not detected; does not exclude the possibility of exposure to HCV. Specimen Anatomical Collection Method / Collection Time Recei manny Time (Source) Location / Volume Laterality Blood BLOOD SPECIMEN / Venipuncture / 02/04/2022 1:00 2021 1:02 Unknown Unknown PM CDT PM CDT Julia Butts MD SEND OUTS Performing Organization Address City/State/ZIP Code Phon e Number [facility] [address] [place] [address] LABORATORY-CENTRAL 2000 LABORATORY APPEALS AND GENERALIST CLERK THIN PREP PAP SCREEN IMAGED (02/04/2022 12:30 PM CDT) Component Value Ref Test Analysis Performed At [facility] gist Range Method Time Signature Case Report Gynecologic Cytology Report ? Case: [id number] ? 02/22/2022 [facility] Authorizing Provider: ??Julia Centeno, ??Collected: ? 02/04/2022 1230 ? 12:40 PM HEALTH ? MD ? CDT LABORATORY-C Ordering Location: ? [facility] ?? Received: ?02/04/2022 1436 ? ENTRA L ? Clinic ? LABORATORY First Screen: ? Vivek Haley ? Specimen: ?APPEALS AND GENERALIST CLERK ThinPrep Vial Screening, Cervical ? INTERPRETATION NEGATIVE FOR (none) 02/22/2022 [facility] E lectronically /RESULT INTRAEPITHELIAL 12:40 PM HEALTH sign ed by LESION OR CDT LABORATORY-C Sudha, MALIGNANCY (NIL) ENTRAL Chr istopher A on LABORATORY 02/22/2022 at 12:40 PM SPECIMEN Satisfactory for evaluation 02/22/2022 [facility] Endocervical component present 12:40 PM HEALTH CDT LABORATORY-C ENTRAL LABORATORY HPV REQUEST HPV and PAP 02/22/2022 [facility] 12:40 PM HEALTH CDT LABORATORY-C ENTRAL LABORATORY Date of LMP NA 02/22/2022 [facility] 12:40 PM HEALTH CDT LABORATORY-C ENTRAL LABORATORY Last Pap Date 03/25/15 02/22/2022 [facility] 12:40 PM HEALTH CDT LABORATORY-C ENTRAL LABORATORY Last Pap NIL 02/22/2022 [facility] Result 12:40 PM HEALTH CDT LABORATORY-C ENTRAL LABORATORY Abnormal Pap No 02/22/2022 [facility] or [place] Bx in 12:40 PM HEALTH last 5 years CDT LABORATORY-C ENTRAL LABORATORY Menstrual Postmenopausal 02/22/2022 [facility] Status 12:40 PM HEALTH CDT LABORATORY-C ENTRAL LABORATORY [place] Bx Done No 02/22/2022 [facility] Today 12:40 PM HEALTH CDT LABORATORY-C ENTRAL LABORATORY Additional None given 02/22/2022 [facility] Information 12:40 PM HEALTH CDT LABORATORY-C ENTRAL LABORATORY Comment: Cytology is screened at [facility], Central Laboratory - [address], [place] [address] and [facility] - [address] [place] [address] and [facility] - [address] [facility] [address] Interpreted at [facility], Central Laboratory - [address] [address] Automated Review Successful 02/22/2022 12:40 PM [facility]-CENTRAL L ABORATORY Comment: Specimen processed successfully by automated bright cutter device, ThinPrep Imaging System, [employer] ANCILLARY TESTING HPV Ordered, 02/22/2022 12:40 [facility] APPEALS AND GENERALIST CLERK Please see PM CDT LABORATORY-CENTRAL separate report LABORATORY Note The pap test is a 02/22/2022 12:40 [facility] screening PM CDT LABORATORY-CENTRAL technique, not a LABORATORY diagnostic procedure. It is used primarily to screen for squamous cancers and precursor lesions. Published studies have shown that it is subject to both false negative and false positive results. The pap test should not be used as the sole means to diagnose or exclude pre-malignant and malignant lesions. Specimen Anatomical Collection Method Collection Time Receive d Time (Source) Location / / Volume Laterality Other (Cervical) Non-Blood / 02/04/2022 12:30 022 2:36 Unknown PM CDT PM CDT Julia Butts MD PATHOLOGY/CYTOLOGY Performing Organization Address City/[facility] Phon e Number [facility] [id number] [place] [phone] LABORATORY-CENTRAL 2000 LABORATORY HPV HIGH RISK (02/04/2022 12:30 PM CDT) Analysis Performed At Patho logist Time Signature TYPE 16 Negative Negative 02/09/2022 [facility] 11:45 AM CDT LABORATORY-[facility] TRAL LABORATORY TYPE 18 Negative Negative 02/09/2022 [facility] 11:45 AM CDT LABORATORY-[facility] TRAL LABORATORY OTHER HIGH Negative Negative 02/09/2022 [facility] RISK TYPES 11:45 AM CDT LABORATORY-[facility] TRAL LABORATORY Specimen Anatomical Collection Method Collection Time Receive d Time (Source) Location / / Volume Laterality Other (Cervical) Non-Blood / 02/04/2022 12:30 022 3:30 Unknown PM CDT PM CDT Narrative [facility] LABORATORY-CENTRAL LABORAT ORY - 02/09/2022 11:45 AM CDT HPV types 16, 18, 31, 33, 35, 39, 45, 51, 52, 56, 58, 59, 66 and 68 DNA were undetectable or below the pre-set threshold. Methodology: Jeyson Lia 4800 HPV Test Julia Butts MD MICROBIOLOGY Performing Organization Address City/[facility] Phon e Number [facility] [address] [place] [phone] LABORATORY-CENTRAL 2000 LABORATORY from Last 3 Months Insurance Payer Benefit Plan / Subscriber ID Effective Dates Phone Addre ss Type Group [employer]UE [employer] OF [id number] 2020-Present [address] [place] [address] Care Teams Inweaver Relationship Specialty Start Date End Date Julia Butts MD PCP - General 10/27/05 [address] [place] [address]
[2022-03-27 12:41] LABS: C Reactive Protein* 7.4 mg/dL (0.5-1.0)
[2022-03-27 13:28] LABS: D Dimer Quantitative* 0.84 ug/ml (0.00-0.50)
--- NOTE | 2022-03-27 13:40 | ED.NURSE ---
Pt marching in place for two minutes to assess oxygenation. Pt initially assessed on 2 LPM O2 via NC. Sats between 92-96% with 2 LPM and HR 110. Pt resting on side of bed for two minutes. Pt then reassessed without oxygenation, on room air, marching for two minutes. Sats dropping to 82% and HR at 108. Pt immediately placed back on 2 LPM O2 via NC and sats back up to 91%. MD bond.
--- NOTE | 2022-03-27 14:17 | P.IMHP_ITS ---
Hospitalist- H&P: HPI History of Present Illness Date Seen: 03/27/22 Chief complaint: Weakness Narrative: Margoth Camacho is a 56 year old female who presented to the ED for worsening symptoms of illness. Patient has felt poorly for the last 5 days. Symptoms include dyspnea and cough. + green sputum, no hemoptysis. No chest pain. + subjective fevers. No orthopnea or PND. Also having headaches, teeth pain. She presented to the emergency room wondering if she had a sinus infection. No LE edema. No history of blood clots. Car trip to [facility] one month ago, no other recent travel. 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 ED Course and Findings: - hypoxia upon ED arrival, responded well to supplemental oxygen - elevated D-dimer - given Solu-Medrol IV and a neb treatment - no acute findings on chest x-ray History of moderate persistent asthma. Hospitalized for asthma in the past (7-8 years ago), never intubated. Does not follow with pulmonology. Recently had a positive FOBT, colonoscopy performed earlier this week, found to have benign adenomatous polyp. Dr. Butts is PCP locally. Margoth lives with Malcolm (medical decision maker, if needed), adult son Ryan in [place]. Requests Full Code status. Quit smoking 3 weeks ago (approximate 30-35 pack year smoking history). 3 ETOH drinks/week. 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 + COVID vaccines. Review of Systems Status of ROS: Reports: 10 or more systems reviewed and unremarkable except as noted in History and below [facility] Medical History (Updated 03/27/22 @ 14:35 by Josie Black MD) Ectopic Moderate persistent asthma Shortness of breath Surgical History (Updated 03/27/22 @ 14:27 by Josie Black MD) History of bunionectomy Social History (Updated 03/27/22 @ 12:33 by Radha Yanes PA-C) Smoking Status: Former smoker What tobacco products do you use: cigarettes Smoking quit date/years: <= 15 years ago Do you use any of these nicotine containing products: None Second hand tobacco smoke exposure: No How often do you have a drink containing alcohol: 2-3 times a week How many standard drinks containing alcohol do you have on a typical day: 1 or 2 How often do you have six or more drinks on one occasion: Never AUDIT-C Alcohol total score: 3 Non-prescribed substance use: denies use Meds Home Medications and Allergies Home Medications Medication Instructions Recorded Confirmed Type albuterol sulfate 2.5 mg/3 mL 2.5 mg inhalation Q6H PRN 03/27/22 03/27/22 History (0.083 %) solution for nebulization bronchospasm fluticasone 250 mcg-salmeterol 50 1 inh inhalation Q12H 03/27/22 03/27/22 History mcg/dose blistr powdr for inhalation (Advair Diskus) ipratropium 20 mcg-albuterol 100 1 puff inhalation Q6H PRN wheezing 03/27/22 03/27/22 History mcg/actuation mist for inhalation (Combivent Respimat) ipratropium bromide 17 1 inh inhalation Q6H PRN 03/27/22 03/27/22 History mcg/actuation HFA aerosol inhaler (Atrovent HFA) varenicline 0.5 mg (11)-1 mg (42) 1 ea PO BIDWM 03/27/22 03/27/22 History tablets in a dose pack varenicline 1 mg tablet 1 mg PO BIDWM 03/27/22 03/27/22 History Home Medication Comments: Updated with patient, started Chantix in January after her annual physical. Allergies Allergy/AdvReac Type Severity Reaction Status Date / Time No Known Drug Allergies Allergy Verified 03/27/22 10:16 Exam Narrative: Exam Narrative: GEN: Alert and oriented, speaking in full sentences and answering questions appropriately HEENT: Normal external ears, EOMIs bilaterally, no scleral icterus CV: RRR, No concerning murmurs, rubs, or gallops R: Mildly decreased air movement throughout, mild wheezing bilateral bases, no wheezing noted in apices Ext: wwp, no concerning edema Skin: No concerning skin lesions or rashes on exposed skin Neuro: Nonfocal, no resting tremor Psych: Appropriate Const: Vital Signs, click to edit/add: Vital Signs - 24 hr 03/27/22 11:37 03/27/22 13:03 Temperature 98.2 F Pulse Rate [Right Pulse Oximeter] 95 86 Respiratory Rate 24 18 Blood Pressure [Ri ght Upper Arm] 124/70 124/70 Pulse Oximetry 95 88 Oxygen Delivery Me thod Nasal Cannula Nasal Cannula Oxygen Flow Rate 2 2 Hospitalist - H&P: Result Labs Labs: Short CBC 03/27/22 Range/Units 12:18 WBC 10.27 (4.50-11.00) K/uL Hgb 10.9 L (12.0-16.0) gm/dL Hct 34.0 (33.0-51.0) % Plt Count 617 H (140-440) K/uL BMP 03/27/22 12:18 Sodium 140 Potassium 3.7 Chloride 101 Carbon Dioxide 32 BUN 8 Creatinine 0.5 Glucose 97 Calcium 8.6 Assessment and Plan Assessment and plan (1) Acute respiratory failure with hypoxia: Status: Acute Assessment and Plan: Differential diagnosis includes asthma exacerbation, PE, infection. Patient may also have undiagnosed COPD given smoking history. No history of cardiac disease and no chest pain. Will obtain CT PE study, obtain RT referral. We will continue Solu-Medrol, defer antibiotics at this time unless infiltrates are noted on CT scan or patient's clinical status changes. Continue home medications for asthma, continue supplemental oxygen and wean as tolerated. Monitor closely for hypercarbia. (2) Moderate persistent asthma: Status: Acute Plan Per above. Lovenox for prophylaxis. Patient requests full code status. Plans to go home with when clinically stable for discharge.
--- NOTE | 2022-03-27 14:28 | CRLHL7_ITS ---
For Patients: As a result of the Century Cures Act, medical imaging exams and procedure reports are released immediately into your electronic medical record. You may view this report before your referring provider. If you have questions, please contact your health care provider. Indication: Shortness of breath, elevated D-dimer. Comparison: 09/23/2016 Technique: CTA chest. 95 cc of Isovue 370. Findings: Adequate contrast bolus without evidence of pulmonary embolism. Mild patchy centrilobular nodules, most notably in the left upper lobe on images 70, and 76, with slightly ill-defined margins. A few of these nodules are in a tree-in-bud configuration. Questionable peribronchial thickening. The study was not timed for evaluation of the thoracic aorta, however there is no thoracic aortic aneurysm or IV dissection. No pleural effusion or pneumothorax. Mild coronary calcification. No pericardial effusion. The left ventricle appears prominent in size. Mildly prominent prevascular, hilar and subcarinal lymph nodes. Imaged portions of the upper abdomen are unremarkable. No suspicious lytic or sclerotic osseous lesions. Impression: 1. No pulmonary embolism. 2. Mild bronchiolitis, likely infectious bronchiolitis. 3. Mildly prominent mediastinal and hilar lymph nodes are nonspecific but most likely reactive. Please note that all CT scans at this facility use dose modulation, iterative reconstruction, and/or weight-based dosing when appropriate to reduce radiation dose to as low as reasonably achievable. Dictated by Mic Rojas MD @ 03/27/2022 4:15:48 PM (Electronically Signed)
--- NOTE | 2022-03-27 15:02 | W.PC.EDHO ---
Primary Language: Preferred Language: Orientation Status: [] Alert & Oriented [] Slight Confusion [] Known Dx Dementia Transfers By: [] Assist of 1 [] Assist of 2 [] Lift Active Medications Discontinued Medications Generic Name Dose Route Start Last Admin Trade Name Melissa PRN Reason Stop Dose Admin Albuterol/Ipratropium 1 neb 03/27/22 11:51 03/27/22 12:12 Iprat-Albut 0.5-2.5 Mg/3 Ml Neb IH 03/27/22 11:52 1 neb ONCE ONE Administration Methylprednisolone Sodium Succinate 125 mg 03/27/22 11:51 03/27/22 12:25 Methylprednisolone Sod Succ 62.5 Mg/Ml (125) IVP 03/27/22 11:52 125 mg ONCE ONE Administration Description of Symptoms ED Triage Present Problem Started to feel like she was getting a cold on Mon Description . Monday am had a colonoscopy and by the evening started with body aches and chills, head congestion. Went to today and they noted her sats to be 85% on room air. UC placed O2 at 2l and increased sats to 92%, EMS placed on 4L which brought sats to 94%. Does not feel SOB. Hx of asthma, gets bronchitis every winter. ED Triage Date of Onset of 03/21/22 Symptoms Oxygen Administration Pulse Oximetry 88 Pulse Oximetry 95 Oxygen Delivery Method Nasal Cannula Oxygen Delivery Method Nasal Cannula Oxygen Flow Rate 2 Oxygen Flow Rate 2
--- NOTE | 2022-03-27 15:29 | ED.NURSE ---
Pt stating hand IV (20 g placed by EMS) starting to hurt. 20 g IV removed with SL intact. Pt transported via w/c to CT scan with 18 g IV placed in right AC and 2 LPM O2 flowing via NC. Pt's two belongings bags transported with pt via w/c. Following CT scan, pt will be transported directly to med surg 261.
--- NOTE | 2022-03-27 17:35 | PC.NURSE ---
shift note: pt admit to rm @ 1530 via WC. vss stable. #18 to Rt AC. pt denies pain. pt on 2L pnc with cont sats @ 91%. RR=22. LS dim bibasilar. pt denies sob.
[2022-03-27] MEDS: VARENICLINE 1 MG 1 EACH PO (19:34)
[2022-03-27] MEDS: ENOXAPARIN 40 MG/0.4 ML INJ SUBCUT (20:48)
[2022-03-28] VITALS (8 sets, daily range): BP systolic 108–132; BP diastolic 70–83; PULSE 80–94; RESP 18; TEMP 36.4–36.9; O2SAT 88–95
[2022-03-28] MEDS: METHYLPREDNISOLONE SOD SUCC 62.5 MG/ML (125) 125 MG IVP ×2 (01:38→06:45)
[2022-03-28] MEDS: SODIUM CHLORIDE 0.9 % (FLUSH) 10 ML SYRINGE IVF ×4 (01:46→21:07)
[2022-03-28 07:11] LABS: HCO3 VBG 34 mmol/L (21-28); PCO2 VBG 59 mmHG (40-50); pH VBG 7.372 (7.32-7.43)
[2022-03-28 07:13] LABS: Basophils Percent Auto 0.1 % (0.0-3.0); Hematocrit 35.9 % (33.0-51.0); Hemoglobin* 11.7 gm/dL (12.0-16.0); Immature Granulocytes Abs Auto 0.13 K/uL (0.00-0.30); Mean Corpuscular HGB Conc 33 gm/dL (32-36); Mean Corpuscular Hemoglobin 30 pg (26-34); Mean Corpuscular Volume 92 fL (80-100); Monocytes Percent Auto 2.5 % (0.0-11.0); Neutrophils Percent Auto 84.5 % (42.0-72.0); Platelet Count* 676 K/uL (140-440); RDW Coefficient of Variation % 13.8 % (11.5-15.5)
[2022-03-28 07:24] LABS: Slide Review Reflex No
[2022-03-28 07:33] LABS: Chloride* 101 mmol/L (96-114); Potassium* 4.2 mmol/L (3.6-5.1); Sodium* 139 mmol/L (135-149)
[2022-03-28 07:36] LABS: Blood Urea Nitrogen* 15 mg/dL (7-30); Calcium* 8.4 mg/dL (8.4-10.6); Creatinine* 0.4 mg/dL (0.5-1.5); Estimated Glomerular Filt Rate 116 ml/min; Glucose* 172 mg/dL (60-115)
[2022-03-28 07:52] LABS: Carbon Dioxide* 33 mmol/L (20-32)
[2022-03-28] MEDS: VARENICLINE 1 MG 1 EACH PO (08:56)
--- NOTE | 2022-03-28 12:34 | P.IMPN_ITS ---
Progress Note: A&P Assessment and plan (1) Asthma with acute exacerbation: Status: Acute Assessment and Plan: Patient has history of asthma and smoking history. Clinically has infectious process/bronchiolitis. Probably also has COPD (2) COPD (chronic obstructive pulmonary disease): Problem details: COPD plus asthma? Exacerbation due to bronchiolitis Status: Acute Assessment and Plan: COPD plus asthma? Current exacerbation due to respiratory infection/bronchiolitis (3) Hypoxia: Status: Acute Assessment and Plan: Still requiring oxygen. Continue treatment for 1 more day in the hospital (4) Bronchiolitis: Status: Acute Plan Continue in hospital for another day of treatment with inhaled bronchodilators and steroids. No clear indication for antibiotics but reassess on a daily basis. Time Spent With Patient Total time spent: Total time spent today is 40 minutes, 25 minutes in coordination of care and discussing with patient and other providers management of COPD/asthma/bronchiolitis Subjective Time Seen by Provider: 08:50 Date Seen: 03/28/22 Interval history: 56-year-old female seen in followup of hospitalization for dyspnea. Patient is had approximately 6 days of symptoms of respiratory illness including head congestion coughing but most importantly dyspnea. She does have a history of asthma and also history of smoking. Evaluation at time of admission showed on CT scanning that she had findings consistent with bronchiolitis. Subtle findings with ground-glass opacities were also noted. She reports feeling better today but is still requiring oxygen to pain pain her O2 sat above 90%. Exam Narrative: Exam Narrative: She is alert and appears in no distress. Mood and affect are bright. Respirations with mild bibasilar crackles a little more on the right than the left. She has diminished breath sounds without marked wheezing. Cardiovascular: S1, S2, regular rate and rhythm. Abdomen is soft without tenderness or mass. She has no clubbing. No cyanosis. Good peripheral perfusion. Const: Vital Signs, click to edit/add: Vital Signs - 24 hr 03/27/22 13:03 03/27/22 14:29 03/27/22 16:01 Temperature 98.4 F Pulse Rate [Left B rachial] 91 Pulse Rate [Right Pulse Oximeter] 86 Respiratory Rate 18 22 Blood Pressure [Le ft Arm] 129/73 Blood Pressure [Ri ght Upper Arm] 124/70 Pulse Oximetry 88 92 91 Oxygen Delivery Me thod Nasal Cannula Nasal Cannula Nasal Cannula Oxygen Flow Rate 2 2 2 03/27/22 15:31 03/27/22 15:31 03/27/22 15:32 Temperature 98.4 F Pulse Rate [Left B rachial] 91 Pulse Rate [Right Pulse Oximeter] Respiratory Rate 22 22 Blood Pressure [Le ft Arm] 129/73 Blood Pressure [Ri ght Upper Arm] Pulse Oximetry 91 91 91 Oxygen Delivery Me thod Nasal Cannula Nasal Cannula Oxygen Flow Rate 2 2 03/27/22 20:11 03/28/22 01:41 03/28/22 05:00 Temperature 98 F 98 F Pulse Rate [Left B rachial] 101 H 85 80 Pulse Rate [Right Pulse Oximeter] Respiratory Rate 20 18 18 Blood Pressure [Le ft Arm] 108/78 Blood Pressure [Ri ght Upper Arm] Pulse Oximetry 89 92 90 Oxygen Delivery Me thod Nasal Cannula Nasal Cannula Nasal Cannula Oxygen Flow Rate 2 2 1 03/28/22 05:45 03/28/22 07:00 03/28/22 07:00 Temperature 98 F Pulse Rate [Left B rachial] 91 89 Pulse Rate [Right Pulse Oximeter] Respiratory Rate 18 18 18 Blood Pressure [Le ft Arm] 120/76 Blood Pressure [Ri ght Upper Arm] Pulse Oximetry 88 Oxygen Delivery Me thod Nasal Cannula Nasal Cannula Oxygen Flow Rate 1 1 Documenting provider has reviewed patient's vital signs: yes Labs Labs: Laboratory Results - last 24 hr 03/27/22 03/27/22 03/28/22 12:18 13:03 06:40 WBC 15.00 H RBC 3.90 L Hgb 11.7 L Hct 35.9 MCV 92 MCH 30 MCHC 33 RDW Coeff of Umm 13.8 Plt Count 676 H Neut % (Auto) 84.5 H Lymph % (Auto) 12.0 L [place] % (Auto) 2.5 Eos % (Auto) 0.0 Baso % (Auto) 0.1 Neut # (Auto) 12.70 H Lymph # (Auto) 1.80 [place] # (Auto) 0.40 Eos # (Auto) 0.00 Baso # (Auto) 0.00 Abs Immat Gran (auto) 0.13 D-Dimer Quant (PE/DVT) 0.84 H VBG pH VBG pCO2 VBG pO2 VBG HCO3 Sodium 140 Potassium 3.7 Chloride 101 Carbon Dioxide 32 BUN 8 Creatinine 0.5 Estimated Creat Clear 90.24 Estimated GFR 110 Glucose 97 Calcium 8.6 C-Reactive Protein 7.4 H 03/28/22 03/28/22 06:40 06:40 WBC RBC Hgb Hct MCV MCH MCHC RDW Coeff of Umm Plt Count Neut % (Auto) Lymph % (Auto) [place] % (Auto) Eos % (Auto) Baso % (Auto) Neut # (Auto) Lymph # (Auto) [place] # (Auto) Eos # (Auto) Baso # (Auto) Abs Immat Gran (auto) D-Dimer Quant (PE/DVT) VBG pH 7.372 VBG pCO2 59 H VBG pO2 32.0 VBG HCO3 34 H Sodium 139 Potassium 4.2 Chloride 101 Carbon Dioxide 33 H BUN 15 Creatinine 0.4 L Estimated Creat Clear 112.80 Estimated GFR 116 Glucose 172 H Calcium 8.4 C-Reactive Protein
--- NOTE | 2022-03-28 18:44 | PC.NURSE ---
Addendum entered by Estelle Vegas RN 03/28/22 19:21: walked in neely on RA for 50 feet total, sats dropped to 83%. Rebounded to 89% within 2 minutes on 1L O2. Original Note: Pt up independently in room. Continues on 1L O2 nc, sats 88-94%. Denies pain, chest pain ,SOB, nausea. Tolerates regular diet.
[2022-03-28] MEDS: ENOXAPARIN 40 MG/0.4 ML INJ SUBCUT (21:00)
[2022-03-29] MEDS: ALBUTEROL SULFATE 2.5 MG/3 ML VIAL.NEB NEB ×4 (02:31→21:51)
[2022-03-29 03:00] VITALS: BP 133/80; PULSE 82; RESP 20; TEMP 36.4; O2SAT 91
--- NOTE | 2022-03-29 06:21 | PC.NURSE ---
no c/o pain. Indep in room. Titrated O2 to 0.5L, maintaining sats 90-92%. Pt has occasional moist cough, pt stated her cough has improved and that she seems to be producing less sputum. Wheezes auscultated throughout lungs, neb given x1, encouraged use of aerobika. VSS. Afebrile.
[2022-03-29 07:00] VITALS: BP 134/86; PULSE 95; RESP 20; TEMP 36.8; O2SAT 90
[2022-03-29] MEDS: predniSONE 20 MG TABLET 60 MG PO (07:33)
[2022-03-29] MEDS: SODIUM CHLORIDE 0.9 % (FLUSH) 10 ML SYRINGE IVF ×2 (08:29→16:04)
--- NOTE | 2022-03-29 10:43 | RESP.RT ---
Pt seen and evaluated for home oxygen. BBS are diminished, fair aeration. Harsh congested PIN INSERTER cough. She desaturates immediately with minor activity to 82%. Returned to 1L of oxygen. Will evaluate tomorrow for home oxygen needs.
--- NOTE | 2022-03-29 10:49 | PM.IMPN1 ---
Progress Note: A&P Assessment and plan (1) COPD (chronic obstructive pulmonary disease): Problem details: COPD plus asthma? Exacerbation due to bronchiolitis Status: Acute (2) Asthma with acute exacerbation: Status: Acute (3) Hypoxia: Status: Acute Plan Plan for 03/29 -case discussed with RT who recommends keeping one more day, I agree -home oxygen evaluation; anticipated discharge with home oxygen -will need outpatient PFTs -check procal; if elevated start antibiotics -continue steroids and nebs Time Spent With Patient Total time spent: 30 minutes Subjective Date Seen: 03/29/22 Interval history: Patient desaturated to 82% on Room air with activity, 85% on RA at rest continues to cough SOB with activity denies chest pain Exam Narrative: Exam Narrative: Gen: No acute distress HEENT: EOMI MMM NCAT CV: RRR normal s1s2 Lungs: End exp wheezing Abd: soft, nt, nd Const: Vital Signs, click to edit/add: Vital Signs - 24 hr 03/28/22 11:00 03/28/22 15:00 03/28/22 15:00 Temperature 97.5 F L 98.1 F Pulse Rate [Left B rachial] 93 94 94 Pulse Rate [Right Pulse Oximeter] Respiratory Rate 18 18 18 Blood Pressure [Le ft Arm] 123/79 122/70 Pulse Oximetry 88 92 Oxygen Delivery Me thod Nasal Cannula Nasal Cannula Oxygen Flow Rate 1 1 03/28/22 15:00 03/28/22 21:05 03/28/22 23:00 Temperature 98.5 F Pulse Rate [Left B rachial] 80 Pulse Rate [Right Pulse Oximeter] 80 Respiratory Rate 18 18 Blood Pressure [Le ft Arm] 124/80 Pulse Oximetry 92 94 Oxygen Delivery Me thod Nasal Cannula Oxygen Flow Rate 1 03/28/22 23:00 03/29/22 03:00 03/29/22 07:00 Temperature 97.8 F 97.6 F Pulse Rate [Left B rachial] Pulse Rate [Right Pulse Oximeter] 80 82 95 Respiratory Rate 18 20 20 Blood Pressure [Le ft Arm] 132/83 133/80 Pulse Oximetry 95 91 Oxygen Delivery Me thod Nasal Cannula Nasal Cannula Oxygen Flow Rate 1 0.5 03/29/22 07:00 Temperature 98.3 F Pulse Rate [Left B rachial] Pulse Rate [Right Pulse Oximeter] 95 Respiratory Rate 20 Blood Pressure [Le ft Arm] 134/86 Pulse Oximetry 90 Oxygen Delivery Me thod Nasal Cannula Oxygen Flow Rate 0.5
[2022-03-29 10:57] VITALS: BP 128/79; PULSE 84; RESP 20; TEMP 36.7; O2SAT 89
[2022-03-29 13:45] LABS: Procalcitonin* < 0.03 ng/mL (<0.50)
--- NOTE | 2022-03-29 14:30 | PC.NURSE ---
Pt. alert and oriented x4, up independently in room. Pt. denies any N/V/ chest pain. Pt. SOB w/activity and dsats to 82% on RA and 85% at rest. Pt. requires 1 L NC per RT and recommends keeping 1 more day and will discharge home w/oxygen. Pt has occasional cough w/sputum, pt stated her cough has improved from day before and that she seems to be producing less sputum. No wheezing on auscultation but diminished in RLL, neb given x1, encouraged use of aerobika. VSS. Afebrile this shift.
[2022-03-29 15:00] VITALS: BP 142/83; PULSE 78; RESP 20; O2SAT 94
[2022-03-29] MEDS: ENOXAPARIN 40 MG/0.4 ML INJ SUBCUT (21:45)
[2022-03-29 23:00] VITALS: BP 121/72; PULSE 86; RESP 20; TEMP 36.8; O2SAT 95
--- NOTE | 2022-03-29 23:54 | PC.NURSE ---
shift [id number] Pt this shift pleasant and smiling. When asked about the potential diagnosis of COPD, pt became teary eyed and saddened. Discussed father history of COPD and how he does not tolerate it well. Pt will follow up with primary regarding a definitive diagnosis and plan of care. PRN albuterol with Aerobika x2. Denies pain. LS clear. O2 sat above 90% with 1L nasal cannula.
[2022-03-30 03:00] VITALS: BP 124/71; PULSE 82; RESP 20; TEMP 36.8; O2SAT 90
[2022-03-30 07:00] VITALS: BP 142/79; PULSE 78; RESP 20; TEMP 36.7; O2SAT 91
[2022-03-30 07:39] LABS: Basophils Percent Auto 0.1 % (0.0-3.0); Eosinophils Percent Auto 0.4 % (0.0-7.0); Hematocrit 39.1 % (33.0-51.0); Hemoglobin* 12.5 gm/dL (12.0-16.0); Immature Granulocytes Abs Auto 0.33 K/uL (0.00-0.30); Mean Corpuscular HGB Conc 32 gm/dL (32-36); Mean Corpuscular Hemoglobin 30 pg (26-34); Mean Corpuscular Volume 93 fL (80-100); Monocytes Percent Auto 7.8 % (0.0-11.0); Neutrophils Percent Auto 55.7 % (42.0-72.0); Platelet Count* 779 K/uL (140-440); RDW Coefficient of Variation % 13.9 % (11.5-15.5); Red Blood Count 4.21 m/uL (4.00-5.20); White Blood Count* 16.85 K/uL (4.50-11.00)
[2022-03-30 07:44] LABS: Slide Review Reflex No
[2022-03-30] MEDS: predniSONE 20 MG TABLET 60 MG PO (07:45)
[2022-03-30] MEDS: SODIUM CHLORIDE 0.9 % (FLUSH) 10 ML SYRINGE IVF (07:46)
[2022-03-30 07:56] LABS: Chloride* 100 mmol/L (96-114)
[2022-03-30 07:57] LABS: Potassium* 3.8 mmol/L (3.6-5.1); Sodium* 140 mmol/L (135-149)
[2022-03-30 07:59] LABS: Carbon Dioxide* 36 mmol/L (20-32); Creatinine* 0.7 mg/dL (0.5-1.5); Est. Creatinine Clearance* 64.46; Estimated Glomerular Filt Rate 101 ml/min
[2022-03-30 08:00] LABS: Blood Urea Nitrogen* 15 mg/dL (7-30); Calcium* 8.8 mg/dL (8.4-10.6); Glucose* 95 mg/dL (60-115)
[2022-03-30 09:25] VITALS: O2SAT 80; O2SAT 91
--- NOTE | 2022-03-30 12:12 | W.PM.HOT ---
Acute Home Oxygen Therapy Acute Home Oxygen Therapy Provider Note Provider Note: Patient was admitted on 03/27/22 at 16:24 and will be discharging on 03/30/2022 Patient is desaturating with SATs of 80% on room air due to COPD. Alternative therapies have been attempted and have not been successful in maintaining the patient's saturation level above 88%. Supplemental O2 is required. This patient is mobile within the home and requires portability.
--- NOTE | 2022-03-30 13:39 | PC.SOCIAL ---
Discharge plan: Met with pt and in room regarding home oxygen order. Pt is requesting oxygen be arranged with [facility]. Pt is hoping to be discharged home by 3:00 today. Called and faxed information to [facility]. Awaiting call back with decision and if approved, will send pt home with portable unit stocked at the hospital by [facility]. social worker psychiatric to follow up as needed.
--- NOTE | 2022-03-30 14:49 | PC.SOCIAL ---
Discharge plan: Received call back from Rose at [facility], confirming pt has been approved for home oxygen and can be sent home with portable unit from the hospital.
--- NOTE | 2022-03-30 16:34 | PM.DS1 ---
DS: Providers Provider Date Seen: 03/30/22 Date of admission: 03/27/22 16:24 Primary care physician: Julia Butts MD Admitting Clinician: Josie Black MD Attending Physician on discharge: Josie Black MD Date of Discharge: 03/30/22 DS: Diagnosis Discharge Diagnosis (1) Bronchiolitis: Status: Acute Problem details: Probably acute respiratory infection triggering her acute hypoxic respiratory failure (2) COPD (chronic obstructive pulmonary disease): Status: Acute Problem details: COPD plus asthma? Exacerbation due to bronchiolitis (3) Asthma with acute exacerbation: Status: Acute Problem details: Recommend pulmonary consult for evaluation and testing for chronic lung disease. (4) Acute respiratory failure with hypoxia: Status: Acute Problem details: Will need home oxygen at least in the short term. Follow up next week in clinic to revisit need for oxygen and reassess whether she can return to work. DS: Summary Hospital Course Hospital Course: 56-year-old female with history of asthma as well as history of cigarette smoking admitted to the hospital with exacerbation of asthma and/or COPD. Time admission she also had a CT scan which showed findings consistent with bronchiolitis and slight ground-glass appearance of infiltrate in her lungs. She had no pulmonary embolism and no pneumonia. She was treated with supplemental oxygen, inhaled bronchodilators and systemic corticosteroids. She has had steady improvement during her hospital stay but still is requiring oxygen. Testing today showed that she had an oxygen saturation of 91% on room air but dropped to 80% with activity. She reported dyspnea with this but said it head was much better than on admission Status at Discharge Functional status at discharge: independent ambulation Overall status at discharge: patient is progressing back to baseline Time Spent with Patient Time attestation: Total time spent providing and/or coordinating discharge services: Time spent: Greater than 30 minutes Exam Narrative: Exam Narrative: She is alert and appears in no distress. Mood and affect are bright. Respirations are clear to auscultation. Just somewhat Guillermo Salvatore breath sounds but no wheezing. No rales or rhonchi. Cardiovascular: S1, S2, regular rate and rhythm. No murmur gallop or rub. Abdomen is soft without tenderness. Extremities without edema. Const: Vital Signs, click to edit/add: Vital Signs - 24 hr 03/29/22 23:00 03/30/22 03:00 03/30/22 07:00 Temperature 98.2 F 98.2 F 98.0 F Pulse Rate [Right Pulse Oximeter] 86 82 78 Respiratory Rate 20 20 20 Blood Pressure [Le ft Arm] 121/72 124/71 142/79 H Pulse Oximetry 95 90 91 Oxygen Delivery Me thod Nasal Cannula Nasal Cannula Nasal Cannula Oxygen Flow Rate 1 1 1 03/30/22 07:00 Temperature Pulse Rate [Right Pulse Oximeter] 78 Respiratory Rate 20 Blood Pressure [Le ft Arm] Pulse Oximetry Oxygen Delivery Me thod Oxygen Flow Rate Documenting provider has reviewed patient's vital signs: yes DS: Data Data Completed and Pending Labs on day of discharge: Labs from last 24 hours 03/30/22 03/30/22 06:53 06:53 WBC 16.85 H RBC 4.21 Hgb 12.5 Hct 39.1 MCV 93 MCH 30 MCHC 32 RDW Coeff of Umm 13.9 Plt Count 779 H Neut % (Auto) 55.7 Lymph % (Auto) 34.0 [place] % (Auto) 7.8 Eos % (Auto) 0.4 Baso % (Auto) 0.1 Neut # (Auto) 9.40 H Lymph # (Auto) 5.70 H [place] # (Auto) 1.30 H Eos # (Auto) 0.10 Baso # (Auto) 0.00 Abs Immat Gran (auto) 0.33 H Sodium 140 Potassium 3.8 Chloride 100 Carbon Dioxide 36 H BUN 15 Creatinine 0.7 Estimated Creat Clear 64.46 Estimated GFR 101 Glucose 95 Calcium 8.8 Discharge Plan Discharge Disposition: Home, Self-Care Date of Admission: 03/27/22 16:24 Attending Provider on Discharge: Jeremiah Cisneros Primary Care Provider: Julia Butts Condition: Stable Anticipated Discharge Date/Time: 03/30/22 12:01 Discharge Medications: New prednisone 20 mg Tablet 40 mg PO DAILYWM Qty: 10 0RF (DME) Home Oxygen Misc See Rx Instructions .Route Qty: 1 0RF Rx Instructions: As directed Continued Combivent Respimat 20-100 mcg/actuation mist 1 puff inhalation Q6H PRN (Reason: wheezing) Label Comments: INHALE 1 PUFF BY MOUTH FOUR TIMES DAILY NEEDED FOR SHORTNESS OF BREATH OR WHEEZING Atrovent HFA 17 mcg/actuation HFA aerosol inhaler 1 inh inhalation Q6H PRN Label Comments: INHALE 2 PUFFS BY MOUTH FOUR TIMES DAILY NEEDED FOR SHORTNESS OF BREATH varenicline 0.5 mg (11)- 1 mg (42) tablets,dose pack 1 ea PO BIDWM Label Comments: FOLLOW PACKAGE DIRECTIONS AND TAKE WITH FOOD varenicline 1 mg tablet 1 mg PO BIDWM Label Comments: TAKE 1 TABLET BY MOUTH IN THE MORNING AND IN THE EVENING WITH MEALS albuterol sulfate 2.5 mg /3 mL (0.083 %) solution for nebulization 2.5 mg inhalation Q6H PRN (Reason: bronchospasm) Label Comments: INHALE 1 VIAL VIA NEBULIZER EVERY 6 HOURS NEEDED SHORTNESS OF BREATH fluticasone propion-salmeterol [Advair Diskus] 250-50 mcg/dose blister with device 1 inh INHALATION Q12H Label Comments: INHALE 1 PUFF BY MOUTH TWICE DAILY 12 HOURS APART Discharge Orders: Discharge Order (Routine); Ordered 03/30/22 Ordered By: Jeremiah Cisneros Patient Education: Prednisone (By mouth), Asthma (DC), Using Oxygen at Home (DC), COPD (Chronic Obstructive Pulmonary Disease) (DC) Activity Restrictions/Additional Instructions: Use oxygen at 1 L per nasal cannula when you are at rest and 3 L per nasal cannula with activity. See your doctor next week to reassess your need for oxygen and your ability to return to work. I recommend you see a director operating or lung specialist as well. Discussed this with your doctor Activity Level: Activity as Tolerated Discharge Diet: Regular Follow Up Appointments: Julia Butts MD [Primary Care Provider] - 04/05/22 8:15 am Forms: [employer] Info Instructions
--- NOTE | 2022-03-30 17:21 | PC.NURSE ---
educated pt on d/c info. pt verbalized understanding. discharged at 1432
== END 2022-03-30 14:32 | disposition home or self-care (01) | DRG 140 ==
LOC: ED 12:45 → MEDSURG 15:00
PROVIDERS: Hospitalist; Admitting Provider Family Medicine; Emergency Provider Family Medicine; PCP Family Medicine; Visit Provider Family Medicine
DX: J44.0 Chronic obstructive pulmonary disease with (acute) lower respiratory infection (principal); J96.01 Acute respiratory failure with hypoxia; J44.1 Chronic obstructive pulmonary disease with (acute) exacerbation; J45.41 Moderate persistent asthma with (acute) exacerbation; Z87.891 Personal history of nicotine dependence
CPT/HCPCS: 36415; 71260; 80048; 82803; 84145; 85025; 85379; 86140; 94640; 94664; 94761; 99284; 99285; A9270; J1650; J2930; J7512; Q9967

== ENCOUNTER 2022-09-17 09:24 | Emergency (ER) | payer BC, SELFPAY ==
[2022-09-17 09:29] VITALS: BP 135/86; PULSE 104; RESP 18; TEMP 36.9; O2SAT 93
--- NOTE | 2022-09-17 09:51 | ED_ITS ---
HPI - Back Pain/Injury General Time Seen by Provider: 09:51 Date Seen: 09/17/22 Chief Complaint: Back Injury/Pain Stated Complaint: Lower back pain going down leg Time Seen by Provider: 09/17/22 09:51 Source: patient and RN notes reviewed Mode of arrival: ambulatory Limitations: no limitations History of Present Illness HPI Narrative: Patient is a 57-year-old female with known left radiculopathy coming in with increased pain overnight. She has an MRI scheduled outpatient for Monday. She states she could not wait any longer. She was already explained by nursing staff that we do not have MRI capability on the weekends. I reviewed with patient that I will evaluate, make sure she has no clinical signs or symptoms that would warrant emergent MRI as we would need to transfer her if this were the case. She is still able to ambulate. She has got some numbness in the foot on the left side. This initiated with vacuuming on August 27. She has taken a 5 day course of steroids, completed it she believes Monday of this last week. Did not think it particularly helped. She has been taking NSAIDs, Tylenol tramadol. She has not tried a muscle relaxant. She is also on gabapentin, she believes that the 100 mg at night. She does have a history of a disc issue in her back about 3-4 years ago. There are no bowel or bladder issues. 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 Gabapentin had been helping her sleep but last night she did not sleep as well. MD elicited complaint: back pain Pertinent past history: prior back pain Related Data Home Medications Medication Instructions Recorded Confirmed albuterol sulfate 2.5 mg/3 mL 2.5 mg inhalation Q6H PRN 03/27/22 03/27/22 (0.083 %) solution for nebulization bronchospasm fluticasone 250 mcg-salmeterol 50 1 inh inhalation Q12H 03/27/22 03/27/22 mcg/dose blistr powdr for inhalation (Advair Diskus) ipratropium 20 mcg-albuterol 100 1 puff inhalation Q6H PRN wheezing 03/27/22 03/27/22 mcg/actuation mist for inhalation (Combivent Respimat) ipratropium bromide 17 1 inh inhalation Q6H PRN 03/27/22 03/27/22 mcg/actuation HFA aerosol inhaler (Atrovent HFA) varenicline 0.5 mg (11)-1 mg (42) 1 ea PO BIDWM 03/27/22 03/27/22 tablets in a dose pack varenicline 1 mg tablet 1 mg PO BIDWM 03/27/22 03/27/22 Previous Rx's Medication Instructions Recorded Home Oxygen #1 ea 03/30/22 prednisone 20 mg tablet 40 mg PO DAILYWM #10 tabs 03/30/22 cyclobenzaprine 10 mg tablet 10 mg PO TID PRN muscle spasm #30 09/17/22 tabs prednisone 20 mg tablet 20 mg PO BID #10 tabs 09/17/22 Allergies Allergy/AdvReac Type Severity Reaction Status Date / Time No Known Drug Allergies Allergy Verified 03/27/22 10:16 Review of Systems Status of ROS: Reports: 6 or more systems reviewed and unremarkable except as noted in History and below [facility] Medical History (Updated 09/17/22 @ 10:08 by Kristen Paul MD) Ectopic Hypoxia Moderate persistent asthma Shortness of breath Surgical History (Updated 03/27/22 @ 14:27 by Josie Black MD) History of bunionectomy Social History (Updated 03/27/22 @ 12:33 by Radha Yanes PA-C) Highest level of school completed/degree received: high school graduate Smoking Status: Former smoker What tobacco products do you use: cigarettes Smoking quit date/years: <= 15 years ago Do you use any of these nicotine containing products: None Second hand tobacco smoke exposure: No How often do you have a drink containing alcohol: 2-3 times a week Alcohol type details: mix of the above How many standard drinks containing alcohol do you have on a typical day: 1 or 2 How often do you have six or more drinks on one occasion: Never AUDIT-C Alcohol total score: 3 Non-prescribed substance use: denies use Caffeine: Yes (coffee 4/daily) service: No Exam Const: Vital Signs, click to edit/add: Vital Signs - 24 hr 09/17/22 09:29 Temperature 98.4 F Pulse Rate [Right Pulse Oximeter] 104 H Respiratory Rate 18 Blood Pressure [Ri ght Upper Arm] 135/86 Pulse Oximetry 93 Oxygen Delivery Me thod Room Air Documenting provider has reviewed patient's vital signs: yes Other: Pleasant 57-year-old female sitting on the edge of the ER bed. She is alert interactive no apparent distress. DTRs are 1+ at patellas, could not get Achilles. The DTRs are symmetric. Good peripheral pulses. Normal light touch sensation. No lower extremity edema. Strength is 5/5 and symmetric. Certainly no warning red flags in her history nor on clinical examination at this time. Course Course Hospital Course: Discussed pain management options, consideration for re-dosing of steroids. She would like to try a muscle relaxant. Will prescribe that for her. Will try another course of prednisone. I will outline some guidance on increasing the gabapentin. I will give her note to be out of work. Vital Signs Vital signs: Initial Vital Signs Temperature 98.4 F 09/17/22 09:29 Temperature Source Temporal Artery Scan 09/17/22 09:29 Pulse Rate 104 H 09/17/22 09:29 Respiratory Rate 18 09/17/22 09:29 Blood Pressure 135/86 09/17/22 09:29 Blood Pressure Mean 102 09/17/22 09:29 Blood Pressure Position Sitting 09/17/22 09:29 Pulse Oximetry 93 09/17/22 09:29 Oxygen Delivery Method 09/17/22 09:29 Vital Signs Temperature 98.4 F 09/17/22 09:29 Pulse Rate 104 H 09/17/22 09:29 Respiratory Rate 18 09/17/22 09:29 Blood Pressure 135/86 09/17/22 09:29 Pulse Oximetry 93 09/17/22 09:29 Oxygen Delivery Method 09/17/22 09:29 Temperature 98.4 F 09/17/22 09:29 Pulse Rate 104 H 09/17/22 09:29 Respiratory Rate 18 09/17/22 09:29 Blood Pressure 135/86 09/17/22 09:29 Pulse Oximetry 93 09/17/22 09:29 Oxygen Delivery Method 09/17/22 09:29 Critical Care Time Critical Care Time Critical Care Time: No Discharge Plan Discharge Clinical Impression: Acute left lumbar radiculopathy Patient Disposition: Home, Self-Care Condition: Stable Instructions: Lumbar Radiculopathy (ED) Additional Instructions: Try the prednisone, take with food. Can use the muscle relaxant as prescribed. Note that this can be sedating as well as the gabapentin. Do not recommend driving while on these. Note provided to be out of work. With the gabapentin, you can take 100 mg 3 times a day. If needed, can increase your nightly does up to 200 mg. If 200 mg is not working after 1-2 nights can go up to 300 mg for your nighttime dose of gabapentin. Follow-up with your MRI appointment on Monday. Contact her primary care provider on Monday if you are having ongoing issues. Activity Level: Activity as Tolerated Prescriptions: New prednisone 20 mg tablet 20 mg PO BID Qty: 10 0RF cyclobenzaprine 10 mg tablet 10 mg PO TID PRN (Reason: muscle spasm) Qty: 30 0RF No Action Combivent Respimat 20-100 mcg/actuation mist 1 puff inhalation Q6H PRN (Reason: wheezing) Label Comments: INHALE 1 PUFF BY MOUTH FOUR TIMES DAILY NEEDED FOR SHORTNESS OF BREATH OR WHEEZING Atrovent HFA 17 mcg/actuation HFA aerosol inhaler 1 inh inhalation Q6H PRN Label Comments: INHALE 2 PUFFS BY MOUTH FOUR TIMES DAILY NEEDED FOR SHORTNESS OF BREATH varenicline 0.5 mg (11)- 1 mg (42) tablets,dose pack 1 ea PO BIDWM Label Comments: FOLLOW PACKAGE DIRECTIONS AND TAKE WITH FOOD varenicline 1 mg tablet 1 mg PO BIDWM Label Comments: TAKE 1 TABLET BY MOUTH IN THE MORNING AND IN THE EVENING WITH MEALS albuterol sulfate 2.5 mg /3 mL (0.083 %) solution for nebulization 2.5 mg inhalation Q6H PRN (Reason: bronchospasm) Label Comments: INHALE 1 VIAL VIA NEBULIZER EVERY 6 HOURS NEEDED SHORTNESS OF BREATH fluticasone propion-salmeterol [Advair Diskus] 250-50 mcg/dose blister with device 1 inh INHALATION Q12H Label Comments: INHALE 1 PUFF BY MOUTH TWICE DAILY 12 HOURS APART prednisone 20 mg Tablet 40 mg PO DAILYWM Qty: 10 0RF (DME) Home Oxygen Misc See Rx Instructions .Route Qty: 1 0RF Rx Instructions: As directed Follow Up/Referrals: Julia Butts MD [Primary Care Provider] - Stand Alone Forms: [employer] Info Instructions
== END 2022-09-17 10:20 | disposition home or self-care (01) ==
LOC: ED 10:12
PROVIDERS: Emergency Provider Family Medicine; PCP Family Medicine
DX: M54.16 Radiculopathy, lumbar region (principal)
CPT/HCPCS: 99283; 99284

== ENCOUNTER 2022-09-27 08:10 | Outpatient (CLI) | payer BC, SELFPAY | END 2022-09-27 08:11 | disposition home or self-care (01) | LOC: INJ CL 08:11 | PROVIDERS: PCP Family Medicine; Visit Provider Family Medicine | DX: M54.16 Radiculopathy, lumbar region (principal); M51.36 Other intervertebral disc degeneration, lumbar region | CPT/HCPCS: 64483; J1100; Q9966 ==

== ENCOUNTER 2023-03-14 15:17 | Emergency (ER) | payer BC, SELFPAY ==
[2023-03-14] VITALS (23 sets, daily range): BP systolic 109–119; BP diastolic 61–83; PULSE 100–125; RESP 18–20; TEMP 36.6–37.1; O2SAT 88–96; BMI 23.4
--- NOTE | 2023-03-14 15:54 | ED_ITS ---
HPI - General Adult General Time Seen by Provider: 15:54 Date Seen: 03/14/23 Chief complaint: Fever Stated complaint: Shortness of breath, fever, headache Time Seen by Provider: 03/14/23 15:54 Source: patient and RN notes reviewed Mode of arrival: ambulatory Limitations: no limitations History of Present Illness HPI narrative: This 57-year-old female is coming in with increasing shortness of breath, cough, fevers since Monday. Symptoms started on Monday and she is worsening, more short of breath. She was 88% on room air on arrival. She has had a sore throat with this, no nausea vomiting or diarrhea. She has had some congestion. She has Advair and Combivent, does not use nebulizers at home. She was exposed to a brother who had pneumonia recently. She has a history of smoking which led to her COPD, is nicotine free at this time. Nursing staff did place oxygen on arrival when O2 sats were 88% and she does report that this makes her feel better. She is not oxygen dependent at home. Related Data Home Medications Medication Instructions Recorded Confirmed fluticasone 250 mcg-salmeterol 50 1 inh inhalation Q12H 03/27/22 03/14/23 mcg/dose blistr powdr for inhalation (Advair Diskus) ipratropium 20 mcg-albuterol 100 1 puff inhalation Q6H PRN wheezing 03/27/22 03/14/23 mcg/actuation mist for inhalation (Combivent Respimat) ipratropium bromide 17 1 inh inhalation Q6H PRN 03/27/22 03/27/22 mcg/actuation HFA aerosol inhaler (Atrovent HFA) Previous Rx's Medication Instructions Recorded Home Oxygen #1 ea 03/30/22 doxycycline monohydrate 100 mg 100 mg PO BID #20 caps 03/14/23 capsule prednisone 20 mg tablet 20 mg PO BID #10 tabs 03/14/23 Allergies Allergy/AdvReac Type Severity Reaction Status Date / Time No Known Drug Allergies Allergy Verified 09/27/22 08:50 Review of Systems Status of ROS: Reports: 6 or more systems reviewed and unremarkable except as noted in History and below [facility] Medical History Hypoxia ?R09.02 - Hypoxemia (ICD-10) Ectopic ?O00.90 - Unspecified ectopic without intrauterine (ICD- 10) Moderate persistent asthma ?J45.40 - Moderate persistent asthma, uncomplicated (ICD-10) Shortness of breath ?R06.02 - Shortness of breath (ICD-10) Surgical History History of bunionectomy ?Z98.890 - Other specified postprocedural states (ICD-10) Social History Highest level of school completed/degree received: high school graduate Smoking Status: Former smoker What tobacco products do you use: cigarettes Smoking quit date/years: <= 15 years ago Do you use any of these nicotine containing products: None Second hand tobacco smoke exposure: No How often do you have a drink containing alcohol: 2-3 times a week Alcohol type details: mix of the above How many standard drinks containing alcohol do you have on a typical day: 1 or 2 How often do you have six or more drinks on one occasion: Never AUDIT-C Alcohol total score: 3 Non-prescribed substance use: denies use Caffeine: Yes (coffee 4/daily) service: No Exam Const: Vital Signs, click to edit/add: Vital Signs - 24 hr 03/14/23 15:25 03/14/23 15:47 03/14/23 16:00 Temperature 98 F Pulse Rate 110 H 109 H Pulse Rate [Pulse Oximeter] 125 H Respiratory Rate 18 Blood Pressure Blood Pressure [Ri ght Upper Arm] 119/74 Pulse Oximetry 88 94 94 Oxygen Delivery Me thod Room Air Nasal Cannula Nasal Cannula Oxygen Flow Rate 2 2 03/14/23 16:15 03/14/23 16:30 03/14/23 16:32 Temperature Pulse Rate 106 H 103 H 103 H Pulse Rate [Pulse Oximeter] Respiratory Rate Blood Pressure 118/83 Blood Pressure [Ri ght Upper Arm] Pulse Oximetry 93 95 96 Oxygen Delivery Me thod Nasal Cannula Nasal Cannula Nasal Cannula Oxygen Flow Rate 2 2 2 03/14/23 16:45 03/14/23 17:00 03/14/23 17:02 Temperature Pulse Rate 100 103 H 102 H Pulse Rate [Pulse Oximeter] Respiratory Rate Blood Pressure 118/67 Blood Pressure [Ri ght Upper Arm] Pulse Oximetry 95 93 92 Oxygen Delivery Me thod Nasal Cannula Nasal Cannula Nasal Cannula Oxygen Flow Rate 2 2 2 03/14/23 17:15 03/14/23 17:26 03/14/23 17:26 Temperature Pulse Rate 106 H Pulse Rate [Pulse Oximeter] Respiratory Rate Blood Pressure Blood Pressure [Ri ght Upper Arm] Pulse Oximetry 93 93 93 Oxygen Delivery Me thod Nasal Cannula Nasal Cannula Oxygen Flow Rate 2 2 03/14/23 17:30 03/14/23 17:31 03/14/23 17:41 Temperature 98.8 F Pulse Rate 104 H 106 H Pulse Rate [Pulse Oximeter] Respiratory Rate 20 Blood Pressure 111/65 Blood Pressure [Ri ght Upper Arm] Pulse Oximetry 91 91 90 Oxygen Delivery Me thod Nasal Cannula Nasal Cannula Nasal Cannula Oxygen Flow Rate 2 2 2 03/14/23 17:45 03/14/23 18:00 03/14/23 18:01 Temperature Pulse Rate 108 H 106 H 106 H Pulse Rate [Pulse Oximeter] Respiratory Rate Blood Pressure 109/61 Blood Pressure [Ri ght Upper Arm] Pulse Oximetry 91 93 92 Oxygen Delivery Me thod Nasal Cannula Nasal Cannula Nasal Cannula Oxygen Flow Rate 2 2 2 This 57-year-old female is seen in exam room 6, lying comfortably in the bed with oxygen on, O2 sats 94%. Sclera clear, conjugate gaze. Symmetrical facial function, has hoarse sound in cough. Speech is normal however, is interrupted by coughing. Oropharynx with maybe some whitish appearing changes on the posterior pharynx but patient notes that sore throat started on Monday. Do wonder if this could be a little bit of a yeast component but otherwise note no erythematous exit date. Neck is supple, no jugular venous distension, no thyromegaly masses or nodules, no lymphadenopathy. Lungs with no airflow at the bases, higher up at the apices posteriorly can hear some tight end-expiratory wheezing. Overall is not exchanging air very well. CV regular but fast, no murmur noted. Abdomen is soft, no rebound or guarding, no organomegaly. No lower extremity edema. Documenting provider has reviewed patient's vital signs: yes Course Course ED Course: This is a 57-year-old female with underlying COPD with obvious concomitant lung infection. Need to decipher whether bacterial viral, likely treat COPD exacerbation with this. Will initiate DuoNeb, check for COVID EM and the other viruses on the triple swab. Get full complement of labs. Portable chest x-ray to start. Reevaluation(s) Time of Reevaluation #1: 18:15 Reevaluation #1: Reviewed with patient that her triple swab is negative, no COVID or RSV. Chest x-ray is not showing definitive pneumonia but with her white count being liliam vated, her current clinical symptoms I do feel that this represents COPD exacerbation with probable bacterial pathogen. She did feel better after the DuoNeb but is still requiring oxygen. She does recollect being sent home with oxygen last year. She does state that she has access to someone else's oxygen at home. Did review with her that her CO2 was mildly up here, briefly discussed CO2 retention. I am initiating 40 mg oral prednisone, IV Rocephin and oral azithromycin. Did discuss that I recommend hospitalization. She is going to consider it. Reauscultation of her lungs reveal increased air entry, coarse lung sounds no current wheezing but lung sounds overall still more distant. Time of Reevaluation #2: 18:27 Reevaluation #2: Nursing staff reports that patient is not willing to be hospitalized. Will get her medications sent in to discharge to home with. Given that she is going to discharge, think it might be best for her to be on doxycycline. Unfortunately nursing staff had already given some of the antibiotics that were ordered when I thought she was perhaps going to go into the hospital. Vital Signs Vital signs: Initial Vital Signs Temperature 98 F 03/14/23 15:25 Temperature Source Temporal Artery Scan 03/14/23 15:25 Pulse Rate 125 H 03/14/23 15:25 Respiratory Rate 18 03/14/23 15:25 Blood Pressure 119/74 03/14/23 15:25 Blood Pressure Mean 89 03/14/23 15:25 Blood Pressure Position Sitting 03/14/23 15:25 Pulse Oximetry 88 03/14/23 15:25 Oxygen Delivery Method Room Air 03/14/23 15:25 Vital Signs Temperature 98 F 03/14/23 15:25 Pulse Rate 125 H 03/14/23 15:25 Respiratory Rate 18 03/14/23 15:25 Blood Pressure 119/74 03/14/23 15:25 Pulse Oximetry 88 03/14/23 15:25 Oxygen Delivery Method Room Air 03/14/23 15:25 Temperature 98.8 F 03/14/23 17:41 Pulse Rate 106 H 03/14/23 18:01 Respiratory Rate 20 03/14/23 17:41 Blood Pressure 109/61 03/14/23 18:01 Pulse Oximetry 92 03/14/23 18:01 Oxygen Delivery Method Nasal Cannula 03/14/23 18:01 Oxygen Flow Rate 2 03/14/23 18:01 Medical Decision Making Lab Data Lab results reviewed: Yes I reviewed the patient's lab results Labs: Lab Results 03/14/23 03/14/23 Range/Units 16:30 16:40 WBC 15.41 H (4.50-11.00) K/uL RBC 4.18 (4.00-5.20) m/uL Hgb 12.2 (12.0-16.0) gm/dL Hct 37.4 (33.0-51.0) % MCV 90 (80-100) fL MCH 29 (26-34) pg MCHC 33 (32-36) gm/dL RDW Coeff of Umm 15.0 (11.5-15.5) % Plt Count 411 (140-440) K/uL Neut % (Auto) 73.1 H (42.0-72.0) % Lymph % (Auto) 14.3 L (20-44) % Nolan % (Auto) 11.2 H (0.0-11.0) % Eos % (Auto) 0.8 (0.0-7.0) % Baso % (Auto) 0.3 (0.0-3.0) % Neut # (Auto) 11.30 H (1.7-7.0) K/uL Lymph # (Auto) 2.20 (0.90-2.90) K/uL Nolan # (Auto) 1.70 H (0.00-0.90) K/UL Eos # (Auto) 0.10 (0.00-0.50) K/uL Baso # (Auto) 0.00 (0.00-0.30) K/uL Abs Immat Gran (auto) 0.00 (0.00-0.30) K/uL Imm/Tot Granulo (auto) 0.3 % VBG pH 7.342 (7.32-7.43) VBG pCO2 51 H (40-50) mmHG VBG pO2 46.2 (25-47) mmHG VBG HCO3 28 (21-28) mmol/L Sodium 137 (135-149) mmol/L Potassium 3.8 (3.6-5.1) mmol/L Chloride 102 (96-114) mmol/L Carbon Dioxide 28 (20-32) mmol/L Anion Gap 7 (7-15) mEq/L BUN 9 (7-30) mg/dL Creatinine 0.6 (0.5-1.5) mg/dL Estimated Creat Clear 74.31 Estimated GFR 105 ml/min Glucose 121 H (60-115) mg/dL Lactate 0.6 (0.5-1.9) mmol/L Calcium 9.4 (8.4-10.6) mg/dL Total Bilirubin 0.4 (0.1-1.5) mg/dL AST 40 H (12-35) U/L ALT 34 (4-35) U/L Alkaline Phosphatase 127 (40-150) U/L Total Protein 7.0 (6.0-8.3) g/dL Albumin 3.8 (3.3-5.0) g/dL SARS-CoV-2 (PCR) Negative SARS-CoV-2 (Negative) Influenza Type A (PCR) Negative PCR FLU A (Negative) Influenza Type B (PCR) Negative PCR FLU B (Negative) RSV (PCR) Negative PCR RSV (Negative) Imaging Data Chest x-ray: Attestation: I have reviewed the pertinent imaging results. My impression: I see no evidence of any acute infiltrate on my preliminary review. Radiologist's impression: Patient: CNADACE ROSENTHAL Facility:?[facility] Patient ID:?[id number] Site Patient ID:?[id number]. Site :?[id number] Study:?XRay Chest PORTABLE-03/14/2023 4:25:37 PM Ordering Physician:Vasile Peterson Final Report: Indication: Cough, fever and COPD Comparison: Two-view chest March 27, 2022 Technique: Single AP view chest Findings: There is hyperinflation and chronic interstitial change. There are diffusely increased interstitial markings consistent with pulmonary edema. There is minimal basilar atelectasis and parenchymal scar. The cardiomediastinal silhouette is within normal limits. The bony thorax is grossly intact. Impression: Hyperinflation with [id number] interstitial markings consistent with pulmonary edema. Dictated by Angel Cuellar MD @ 03/14/2023 5:11:22 PM (Electronic Signature) ECG Data Attestation: I personally reviewed and interpreted this ECG as follows: (Sinus tachycardia, 104 beats per minute. Q-waves anterior precordial leads without any ST or T-wave changes. Right axis deviation.) Critical Care Time Critical Care Time Critical Care Time: No Discharge Plan Discharge Clinical Impression: Hypoxia, Acute exacerbation of chronic obstructive pulmonary disease Patient Disposition: Home, Self-Care Condition: Stable Instructions: COPD (Chronic Obstructive Pulmonary Disease) (ED), Hypoxemia (DC) Additional Instructions: Need to continue antibiotics and prednisone, next dose due tomorrow morning. If you do use the home oxygen that you have access to, do not recommend going over 1-2 L nasal cannula, you seem to be safe at that level while you are here in the ER and being observed. Continue on your routine medications. If you are not improving over the next week, feel you are worsening and becoming more ill, have increased difficulty breathing or shortness of breath, do recommend that you return to the ER for further evaluation. Activity Level: Activity as Tolerated Prescriptions: New prednisone 20 mg tablet 20 mg PO BID Qty: 10 0RF doxycycline monohydrate 100 mg capsule 100 mg PO BID Qty: 20 0RF No Action Combivent Respimat 20-100 mcg/actuation mist 1 puff inhalation Q6H PRN (Reason: wheezing) Patient Comments: INHALE 1 PUFF BY MOUTH FOUR TIMES DAILY NEEDED FOR SHORTNESS OF BREATH OR WHEEZING Atrovent HFA 17 mcg/actuation HFA aerosol inhaler 1 inh inhalation Q6H PRN Patient Comments: INHALE 2 PUFFS BY MOUTH FOUR TIMES DAILY NEEDED FOR SHORTNESS OF BREATH fluticasone propion-salmeterol [Advair Diskus] 250-50 mcg/dose blister with device 1 inh INHALATION Q12H Patient Comments: INHALE 1 PUFF BY MOUTH TWICE DAILY 12 HOURS APART (DME) Home Oxygen Misc See Rx Instructions .Route Qty: 1 0RF Rx Instructions: As directed Follow Up/Referrals: Julia Butts MD [Primary Care Provider] - Stand Alone Forms: [facility] Info Instructions
--- NOTE | 2023-03-14 15:58 | CRLHL7_ITS ---
For Patients: As a result of the Century Cures Act, medical imaging exams and procedure reports are released immediately into your electronic medical record. You may view this report before your referring provider. If you have questions, please contact your health care provider. Indication: Cough, fever and COPD Comparison: Two-view chest March 27, 2022 Technique: Single AP view chest Findings: There is hyperinflation and chronic interstitial change. There are diffusely increased interstitial markings consistent with pulmonary edema. There is minimal basilar atelectasis and parenchymal scar. The cardiomediastinal silhouette is within normal limits. The bony thorax is grossly intact. Impression: Hyperinflation with [id number] interstitial markings consistent with pulmonary edema. Dictated by Angel Cuellar MD @ 03/14/2023 5:11:22 PM (Electronically Signed)
--- OUTSIDE RECORDS SUMMARY | 2023-03-14 16:05 | XMS_ITS | Continuity of Care Document ---
Author Name Unknown Organization [facility] Address [address] [place] [address] Phone Care Team Providers Care Silk Screen Printer Helper Name Role Phone Irina Ahumada MD Unavailable Unavailable Allergies, Adverse Reactions, Alerts Substance Reaction Status Criticality No Known Allergies Active No Inform ation Medications Medication Instructions Dosage Effective Dates (start - stop) Status Comments GABAPENTIN (unknown strength) Not Available - Active CYCLOBENZAPRINE HCL ER (unknown strength) Not Available - Active TRAMADOL HCL (unknown strength) Not Available - Active ATROVENT HFA (unknown strength) Not Available - Active Procedures Procedure Date Postop Followup Visit Far Lateral/Transfacet/Extraforaminal, L umbar HNP - PA Far Lateral/Transfacet/Extraforaminal, L umbar HNP Office/Outpatient Visit,[facility] 2022 Advance Directives Directive Yes / No Effective Date File Name No Information Encounters Encounter Description Practice Location Reason(s) For Visit Diagnoses Date Provider Providers Copied on Encounter [facility], [address], [facility], [place], [id number], [place] tel:[phone] [facility] Encounter for follow-up examination after completed treatment for conditions other than malignant neoplasm 3 Zita Arevalo. [facility], [address], [place], [address], [place]. tel:[phone] Referring Provider: Irina Ahumada, [facility] [address], [place], [address]. tel:[phone] [facility], [address], [place], [place], [id number], [place] tel:[phone] [facility] No Information 3 Jhoan Ortiz. [facility], [address], [place], [address], [place]. [phone] Referring Provider: Irina Ahumada, [facility] [address], [place], [address]. tel:[phone] [facility], [address], [place], [place], [id number], [place] tel:[phone] [facility] No Information 3 Zita Arevalo. [facility], [address], [place], [address], [place]. [phone] Referring Provider: Irina Ahumada, [facility] [address], [place], [address]. tel:[phone] Office/Outpat ient Visit,[place], [facility], [address], [place], [place], [id number], [place] tel:[phone] [facility] Other intervertebral disc displacement, lumbar regionRadiculop athy, lumbar region 3 Zita Arevalo. [facility], [address], [place], [address], [place]. [phone] Referring Provider: Irina Ahumada, [facility] [address], [place], [address]. tel:[phone] Family History Family Member Type Diagnosis Age At Onset No Information Payers Payer name Insurance type Covered green party ID Johnny leyva(s) [facility] [id number] [facility] [id number] Social History Type Description Quantity Date Captured Comments Alcohol Use Details Unknown Caffeine Use Details Unknown Tobacco Use Status Moderate cigarette smoker (10-19 cigs/day) Smoking Status Heavy tobacco smoker Smoking Tobacco Use Details Cigarette: No Details Available Cigarette: 0.75 Packs per day Sex Female Vital Signs Date / Time: Height Weight BMI Pulse Rate Blood Pressure Temperature Respiratory Rate Body Surface Area Head Circumference Head Circ. Percentile Wt./[place]. Percentile BMI percentile Pulse Ox Inhaled Ox 10:32 AM 61.00 in 56.245 kg (124.00 lbs) 23.4 3 kg/m eter (2) Chief Complaint And Reason For Visit No Information Reason For Referral Reason For Referral No Information History Of Present Illness Encounter Date Complaint History Of Prese nt Illness No Information Functional Status Date Functional Assessmen t No Information Instructions Date Instruction Additional Infor mation No Information Assessments Type Assessment Date No Information Patient Care Teams Name Effective Dates (start - stop) Status Members No Information
[2023-03-14 16:56] LABS: HCO3 VBG 28 mmol/L (21-28); Lactate* 0.6 mmol/L (0.5-1.9); PCO2 VBG 51 mmHG (40-50); PO2 VBG 46.2 mmHG (25-47); pH VBG 7.342 (7.32-7.43)
[2023-03-14 16:59] LABS: Basophils Percent Auto 0.3 % (0.0-3.0); Eosinophils Percent Auto 0.8 % (0.0-7.0); Hematocrit 37.4 % (33.0-51.0); Hemoglobin* 12.2 gm/dL (12.0-16.0); Immature Granulocytes Pct Auto 0.3 %; Lymphocytes Percent Auto 14.3 % (20-44); Mean Corpuscular HGB Conc 33 gm/dL (32-36); Mean Corpuscular Hemoglobin 29 pg (26-34); Mean Corpuscular Volume 90 fL (80-100); Monocytes Percent Auto 11.2 % (0.0-11.0); Neutrophils Percent Auto 73.1 % (42.0-72.0); Platelet Count* 411 K/uL (140-440); Red Blood Count 4.18 m/uL (4.00-5.20); White Blood Count* 15.41 K/uL (4.50-11.00)
[2023-03-14 17:03] LABS: Slide Review Reflex No
[2023-03-14 17:13] LABS: Albumin* 3.8 g/dL (3.3-5.0); Sodium* 137 mmol/L (135-149)
[2023-03-14 17:14] LABS: Chloride* 102 mmol/L (96-114); Potassium* 3.8 mmol/L (3.6-5.1)
[2023-03-14 17:16] LABS: Alkaline Phosphatase* 127 U/L (40-150); Aspartate Amino Transferase* 40 U/L (12-35); Bilirubin Total* 0.4 mg/dL (0.1-1.5)
[2023-03-14 17:17] LABS: Alanine Aminotransferase* 34 U/L (4-35); Blood Urea Nitrogen* 9 mg/dL (7-30); Calcium* 9.4 mg/dL (8.4-10.6); Glucose* 121 mg/dL (60-115)
[2023-03-14 17:18] LABS: Anion Gap 7 mEq/L (7-15); Carbon Dioxide* 28 mmol/L (20-32); Creatinine* 0.6 mg/dL (0.5-1.5); Est. Creatinine Clearance* 74.31; Estimated Glomerular Filt Rate 105 ml/min
[2023-03-14] MEDS: IPRAT-ALBUT 0.5-2.5 MG/3 ML NEB 1 NEB IH (17:25)
[2023-03-14 17:53] LABS: PCR FLU A Negative PCR FLU A (Negative); PCR FLU B Negative PCR FLU B (Negative); PCR RSV Negative PCR RSV (Negative)
[2023-03-14 17:54] LABS: SARS PCR* Negative SARS-CoV-2 (Negative)
[2023-03-14] MEDS: cefTRIAXone 1 GM in 0.9 % SODIUM CHLORIDE Mini-bag 100 ML IVPB (18:21)
[2023-03-14] MEDS: predniSONE 20 MG TABLET 40 MG PO (18:22)
[2023-03-14] MEDS: AZITHROMYCIN 250 MG TABLET 500 MG PO (18:23)
--- NOTE | 2023-03-14 18:46 | ED.NURSE ---
Pt is refusing to be admitted to the hospital.
--- NOTE | 2023-03-14 18:56 | ED.NURSE ---
Pt refused to be admitted to hospital. Was advised on the risks of not being admitted.
[2023-03-14 21:04] LABS: C Reactive Protein* 30.2 mg/dL (0.5-1.0)
== END 2023-03-14 18:57 | disposition home or self-care (01) ==
PROVIDERS: Emergency Provider Family Medicine; PCP Family Medicine
DX: J44.1 Chronic obstructive pulmonary disease with (acute) exacerbation (principal); R09.02 Hypoxemia
CPT/HCPCS: 36415; 71045; 80053; 82803; 83605; 85025; 86140; 87040; 87631; 93005; 94640; 94761; 96365; 99284; 99285; A9270; J0696; J7512

== ENCOUNTER 2024-08-06 00:43 | Inpatient (IN) | payer BC, SELFPAY ==
[2024-08-06] VITALS (16 sets, daily range): BP systolic 95–145; BP diastolic 56–75; PULSE 89–105; RESP 16–22; TEMP 36.4–37.1; O2SAT 81–94; BMI 23.4; BMI 23.6
--- OUTSIDE RECORDS SUMMARY | 2024-08-06 00:44 | XMS_ITS | Continuity of Care Document ---
Author Organization [facility] Address [address] [place] [address] Phone Care Team Providers Care Legal Paraprofessional Name Role Phone Irina Ahumada MD Unavailable Unavailable Allergies, Adverse Reactions, Alerts Substance Reaction Status Criticality No Known Allergies Active No Inform ation Medications Medication Instructions Dosage Effective Dates (start - stop) Status Comments ATROVENT HFA (unknown strength) Not Available - Active TRAMADOL HCL (unknown strength) Not Available - Active CYCLOBENZAPRINE HCL ER (unknown strength) Not Available - Active GABAPENTIN (unknown strength) Not Available - Active Procedures Procedure Date Postop Followup Visit Far Lateral/Transfacet/Extraforaminal, L umbar HNP - PA Far Lateral/Transfacet/Extraforaminal, L umbar HNP Office/Outpatient Visit,[facility] 2022 Advance Directives Directive Yes / No Effective Date File Name No Information Encounters Encounter Description Practice Location Reason(s) For Visit Diagnoses Date Provider Providers Copied on Encounter [facility], [address], [place], [place], [id number], [place] tel:[phone] [facility] Encounter for follow-up examination after completed treatment for conditions other than malignant neoplasm 3 Zita Arevalo. [facility], [address] [place] [address] [address], [place], [address], [place]. tel:[phone] Referring Provider: Irina Ahumada, [facility] [address], [place], [address]. tel:[phone] [facility], [address], [place], [place], [id number], [place] tel:[phone] [facility] No Information 3 Jhoan Ortiz. [facility], [address], [address], [place], [address], [place]. [phone] Referring Provider: Irina Ahumada, [facility] [address], [place], [address]. tel:[phone] [facility], [address], [place], [place], [id number], [place] tel:[phone] [facility] No Information 3 Zita Arevalo. [facility] [place], [address], [place], [address], [place]. [phone] Referring Provider: Irina Ahumada, [facility] [address], [place], [address]. tel:[phone] Office/Outpat ient Visit,New, [facility], [address], [place], [place], [id number], [place] tel:[phone] [facility] Other intervertebral disc displacement, lumbar regionRadiculop athy, lumbar region October- 3 Zita Arevalo. [facility], [address], [place], [address], [place]. [phone] Referring Provider: Irina Ahumada, [facility] [address], [place], [address]. tel:[phone] Family History Family Member Type Diagnosis Age At Onset No Information Payers Payer name Insurance type Covered alliance party ID Marekdaniella leyva(s) [facility] [id number] [facility] [id number] Social History Type Description Quantity Date Captured [...]
--- OUTSIDE RECORDS SUMMARY | 2024-08-06 00:45 | XMS_ITS | Clinical Summary ---
Author Organization [facility] Address [place], [place] [address] Care Team Providers Care Corporate Travel Counselor Name Role Phone Julia Butts MD Primary Care Provide r Allergies No known active allergies Medications MULTIVITAMIN TABIndications:We ll female exam with routine gynecological exam take 1 tablet by oral route once daily with food 100 0 04/22/20 09 Active acetaminophen (TYLENOL) 325 mg tabletIndications :Post-op pain Take 1-2 Tablets (325-650 mg) by mouth every 4 hours if needed for Pain. Max acetaminophen dose: 4000mg in 24 hrs. 100 Tablet 12/06/19 23 Active fluticasone propion-salmetero L (Wixela Inhub) 250-50 mcg/Dose diskus inhalerIndication s:COPD with chronic bronchitis (HC) Inhale 1 Puff by mouth every 12 hours. 180 Each 3 01/13/20 24 Active gabapentin (NEURONTIN) 300 mg capsuleIndication s:Acute midline low back pain with left-sided sciatica TAKE 1 CAPSULE BY MOUTH AT BEDTIME 90 Capsule 03/19/20 24 Active ipratropium (Atrovent HFA) 17 mcg/actuation inhalerIndication s:Moderate persistent asthma without complication Inhale 2 Puffs by mouth 4 times daily if needed for Shortness Of Breath or Wheezing. 12.9 g 2 05/17/20 24 Active Trelegy Ellipta 200-62.5-25 mcg inhalerIndication s:Moderate persistent asthma without complication INHALE 1 PUFF BY MOUTH EVERY DAY 60 Each 3 05/24/20 Active albuterol 0.083% (2.5 mg/3 mL) neb solutionIndicatio ns:Acute cough,Bronchitis with bronchospasm,Mode rate persistent asthma with exacerbation Inhale 3 mL (2.5 mg) via a nebulizer every 6 hours if needed for Shortness of Breath 1st choice. 90 mL 3 05/27/20 Active benzonatate (TESSALON) 100 mg capsuleIndication s:Bronchitis with bronchospasm Take 1 Capsule (100 mg) by mouth 3 times daily if needed for Cough. 21 Capsule 2 06/07/20 Active Active Problems Problem Noted Date Diagnosed Date Acute respiratory failure, u nspecified whether with hypoxia or hypercapnia 05/27/2024 Lumbar disc herniation with radiculopathy L4-L5, left 12/05/2022 Postoperative hypoxemia 12/05/2022 Moderate persistent asthma without complication 12/05/2022 Pap smear for cervical cancer screening 04/07/20 Overview (2022): 01/2022 NIL/HPV Negative Plan: Pap and HPV 01/2027 Colon polyp 03/25/2022 Overview (03/25/2022): Colonoscopy 03/2022 SSA, repeat in 5 years Reactive airway disease with wheezing, mild intermittent, uncomplicated 11/23/2017 Lipoma of neck 11/19/2012 Displacement of cervical int ervertebral disc without myelopathy 02/28/2008 Supraspinatus tendonitis 02/28/2008 Personal history of tobacco use, presenting hazards to health 10/19/2006 Encounters Date Type Department Care Team Description 06/07/2024 1:00 PM CONCRETE PRODUCTS DISPATCHER Phone Office Visit [facility] [[email or web address] [address] [place] [address] Julia Butts MD Cough (States she finished Zpack on 06/03/24 and is feeling a little better than she was prior to Rx's, however, symptoms continue. Patient wondering if she should be prescribed another abx); Telehealth ([phone]) 06/07/2024 Travel 06/06/2024 Nurse Triage [facility] [[email or web address]] [address] [place] [address] Julia Butts MD Cough 05/27/2024 10:45 AM CONCRETE PRODUCTS DISPATCHER Ancillary Procedure [facility] [[email or web address]] [address] [place] [address] 05/27/2024 10:15 AM CONCRETE PRODUCTS DISPATCHER Office Visit [facility] [[email or web address]] [address] [place] [address] Isa Pitts PA URI 05/27/2024 Travel 05/21/2024 Refill [facility] [[email or web address]] [address] [place] [address] Julia Butts MD Refill Request (Saulo Benton) from Last 3 Months Immunizations Name Administration Dates Next Due Influenza, IIV4 06/02/2017 Pneumococcal Conj 20-valent (Prevnar 20) 022 Td (Age >=7 Years) 03/23/2004 Tdap 11/13/2012 Family History Medical History Relation Name Comments Good Health Father Alcohol/Drug Mother Cancer-breast Mother AND THROAT CA, age 59 Heart Disease Other 1 GRANDFATHER Diabetes Other 2 GRANDMOTHER Cancer-ovarian No Family History Relation Name Status Comments Father Mother (Age 60) cancer Other 1 Other 2 Social History Tobacco Use Types Packs/Day Years Used Date Smoking Tobacco: Former Cigarettes 0.5 15 Q uit: 03/01/2022 Smokeless Tobacco: Never Tobacco Cessation:Counseling Given: Not Answered Alcohol Use Standard Drinks/Week Comments Yes 3 (1 standard drink = 0.6 oz pur e alcohol) 3 drinks per week PHQ-2 Answer Date Recorded PHQ-2 TOTAL SCORE 0 02/04/2022 Social Connections Answer Date Recorded Frequency of Communication with Friends and Fami ly 0 03/24/2023 Financial Resource Strain Answer Date R ecorded Difficulty of Paying Living Expenses 3 03/24/2023 Difficulty of Paying Living Expenses Not on file 03/24/2023 Food Insecurity Answer Date Recorded Worried About Running Out of Food in the Last Ye ar 1 03/24/2023 Transportation Needs Answer Date Record ed Lack of Transportation (Medical) 1 03/24/2023 Housing Stability Answer Date Recorded Unable to Pay for Housing in the Last Year 1 03/24/2023 Comments No Sex and Gender Information Value Date Recorded Sex Assigned at Not on file Legal Sex Female 6:19 AM CONCRETE PRODUCTS DISPATCHER Gender Identity Not on file Sexual Orientation Not on file Obstetrics History Last Filed Vital Signs Vital Sign Reading Time Taken Comments Blood Pressure 138/83 05/27/2024 10:14 AM CONCRETE [employer]ODUCTS DISPATCHER Pulse 112 05/27/2024 10:14 AM CONCRETE PRODUCTS DISPATCHER Temperature 36.8 C (98.2 F) 05/27/2024 10:14 AM CONCRETE PRODUCTS DISPATCHER Respiratory Rate 16 12/06/2022 7:26 AM CDT Oxygen Saturation 90% 05/27/2024 10:14 AM CONCRETE PRODUCTS DISPATCHER Inhaled Oxygen Concentration - - Weight 55.1 kg (121 lb 8 oz) 05/27/2024 10:14 AM CONCRETE PRODUCTS DISPATCHER Height 154.9 cm (5' 1) 12/05/2022 9:46 AM CDT Body Mass Index 22.96 12/05/2022 9:46 AM CDT Plan of Treatment Health Maintenance Due Date Last Done Comments HIV for age 15-65 1980 Zoster (shingles) series for age 50+ (1 of 2) 2015 Tetanus booster 11/13/2022 11/13/2012, 03/23/2004 Depression screening for age 12+ 02/04/2023 02/04/2022, 12/05/2019, 11/23/2017, Additional history exists BMI (ht and wt on same day) for age 18+ 11/24/2023 11/23/2022, 02/04/2022, 12/05/2019, Additional history exists COVID-19 vaccine series ( season) 2024 06/08/2021, 08/13/2020, 07/23/2020 Influenza for age 50-64 03/03/2024 06/02/2017 Mammogram for age 45-75 11/16/2024 11/17/19 24, 2022, 02/04/2021, Additional history exists Lipids for age 45-75 02/04/2027 02/04/2022, 05/13/20 09 Pap test for age 21-65 02/04/2027 , 02/04/2022, 03/24/2015, Additional history exists Colonoscopy through age 75 03/22/2027 03/22/2022, Tdap Completed 11/13/2012 Hepatitis C screening for ag e 18-79 Completed 02/04/2022 Pneumococcal series for age 50+ Completed 2 Procedures Procedure Name Priority Date/Time Associated Diagnosis Comments COVID/FLU/RSV PANEL Routine 05/27/2024 1 0:38 AM CONCRETE [employer]ODUCTS DISPATCHER Acute cough XR CHEST 2 VIEWS PA AND LATERAL STAT 05/27/2024 10:26 AM CONCRETE [employer]ODUCTS DISPATCHER Acute cough XR MAMMO BILAT SCREENING Routine 11/17/2023 11:50 AM CDT Visit for screening mammogram COLONOSCOPY 03/22/2022 12:07 PM CDT ANTI HCV Routine 02/04/2022 1:00 PM CDT Encounter for hepatitis C screening test for low risk patient LIPID PANEL W REFLEX MEASURED LDL Routine 02/04/2022 1:00 PM CDT Screening for lipid disorders HPV HIGH RISK Routine 02/04/2022 12:30 PM CDT Pap smear for cervical cancer screening from Last 3 Months or Most Recently Relevant to Health Maintenance Results * COVID/FLU/RSV PANEL (05/27/2024 10:38 AM CONCRETE PRODUCTS DISPATCHER) COVID 19 [facility] Negative Negative 05/27/2024 11:35 PM CONCRETE PRODUCTS DISPATCHER [facility] Comment:All PCR tests are swift bject to false negative result due to variability in viral load and collection technique. A negative result does not rule out a SARS-CoV-2 infection. Clinical correlation required. INFLUENZA A PCR Negative 4 11:35 PM CONCRETE PRODUCTS DISPATCHER [facility] INFLUENZA B PCR Negative 4 11:35 PM CONCRETE PRODUCTS DISPATCHER [facility] Respiratory Syncytial Virus Negative 05/27/2024 11:35 PM CONCRETE PRODUCTS DISPATCHER [facility] Swab NASOPHARYNGEAL SWAB / Unknown Non-Blood / Unknown 05/27/2024 10:38 AM CONCRETE PRODUCTS DISPATCHER 05/27/2024 10:38 AM CONCRETE PRODUCTS DISPATCHER Isa [facility]ASH MICROBIOLOGY Final Result [facility] [address] [place] [address], [place] * XR CHEST 2 VIEWS PA AND LATERAL (05/27/2024 10:26 AM CONCRETE PRODUCTS DISPATCHER) Anatomical Region Laterality Modality CHEST, THORAX, Lung, HEART Compu audra Radiography 05/27/2024 10:3 4 AM CONCRETE PRODUCTS DISPATCHER Impressions 05/27/2024 10:34 AM CONCRETE PRODUCTS DISPATCHER No acute or significant findings. Dictated by Peggy Loaiza MD @ 05/27/2024 10:34:43 AM (Electronically Signed) Narrative 05/27/2024 10:34 AM CONCRETE PRODUCTS DISPATCHER For Patients: As a result of the Cures Act, medical imaging exams and procedure reports are released immediately into your electronic medical record. You may view this report before your referring provider. If you have questions, please contact your health care provider. INDICATION: Acute cough TECHNIQUE: Chest 2 views. COMPARISON: Chest radiograph 06/23/2021. FINDINGS: Cardiovascular and mediastinum: Heart size is normal. Unremarkable mediastinum. Lungs and pleural spaces: Lungs are clear. No sign of infiltrate or mass. No sign of pleural effusion. No pneumothorax. Bones and soft tissues: No significant findings. Procedure Note Peggy Loaiza MD - 05/27/2024 For Patients: As a result of the Cures Act, medical imagingexams and procedure reports are released immediately into your electronicmedical record. You may view this report before your referring provider.If you have questions, please contact your health care provider. INDICATION: Acute cough TECHNIQUE: Chest 2 views. COMPARISON: Chest radiograph 06/23/2021. FINDINGS: Cardiovascular and mediastinum: Heart size is normal. Unremarkablemediastinum. Lungs and pleural spaces: Lungs are clear. No sign of infiltrate ormass. No sign of pleural effusion. No pneumothorax. Bones and soft tissues: No significant findings. IMPRESSION: No acute or significant findings. Dictated by Peggy Loaiza MD @ 05/27/2024 10:34:43 AM (Electronically Signed) us Isa [facility] GENERAL IMAGING Final Result * XR MAMMO BILAT SCREENING (11/17/2023 11:50 AM CDT) Anatomical Region Laterality Modality BREASTS, Breast Left, Breast Right Bilateral Mammography Impressions 11/17/2023 4:06 PM CDT There is no radiographic evidence for malignancy. Recommend annual mammograms. MAMMOGRAM ASSESSMENT: ACR 1 Negative PATIENTS: You will also receive a letter with your examination results in an easy to read format. If you have questions about your results, please contact your referring provider. Narrative 11/17/2023 4:06 PM CDT For Patients: As a result of the Cures Act, medical imaging exams and procedure reports are released immediately into your electronic medical record. You may view this report before your referring provider. If you have questions, please contact your health care provider. XR MAMMO BILAT SCREENING [[id number]] CLINICAL HISTORY: This is an asymptomatic 58 y.o. patient. INDICATION FOR EXAM: Mammogram Screening. TECHNIQUE: CC & MLO views were obtained. This study was evaluated with the assistance of Computer-Aided Detection. COMPARISON FILM: Yes 04/07/22 [employer] 02/04/21 [employer] FINDINGS: The breasts are extremely dense, which lowers the sensitivity of mammography. There are no dominant masses, suspicious micro calcifications or areas of architectural distortion. us Julia Butts MD MAMMO Final Result * COLONOSCOPY (03/22/2022 12:07 PM CDT) 03/22/2022 12:0 7 PM CDT Narrative Transcriptions Vasu Parker MD - 03/22/2022 2:37 PM CDT Patient Name: Margoth Camacho Procedure Date: 03/22/2022 Gender: Female Date of : 1965 Admit Type: Outpatient Procedure: Colonoscopy Proceduralist: Vasu Parker MD , Shanti Callahan RN(Nurse), Radha Sierra (Nurse) Referring MD: Julia Butts Indications/Pre-Op Diagnosis: This is the patient's first colonoscopy, Positive Cologuard test Medications: Fentanyl 100 micrograms IV, Midazolam 2 mgIV, The level of sedation administered wasmoderate Procedure Description: The patient had risks, benefits and alternatives explained to andgave informed consent. The patient had a stable cardiopulmonary status and judged an adequate candidate for conscious sedation. The colonoscope was passed through the anus and advanced to thececum, identified by appendiceal orifice and ileocecal valve. Thecolonoscopy was performed without difficulty. The patient tolerated the procedure well. The quality of the bowel preparation was good. The ileocecal valve, appendiceal orifice, and rectum were photographed. Complications: No immediate complications. Estimated Blood Loss & Specimen: Estimated blood loss: none. Specimen collected - Yes and sent to Laboratory Findings: The perianal and digital rectal examinations were normal. A 5 mm polyp was found in the ascending colon. The polyp was sessile. The polyp was removed with a cold snare. Resection and retrieval were complete. The exam was otherwise without abnormality. Impressions/Post-Op Diagnosis: - One 5 mm polyp in the ascending colon, removed with a cold snare. Resected and retrieved. - The examination was otherwise normal. Recommendation: - Patient has a contact number available for emergencies. The signsand symptoms of potential delayed complications were discussed with the patient. Return to normal activities tomorrow. Written discharge instructions were provided to the patient. - Resume previous diet. - Continue present medications. - Await pathology results. - Repeat colonoscopy for surveillance based on pathology results. Moderate Sedation: A time out was performed before the procedure. Moderate (conscious) sedation was administered by the endoscopy nurse and supervised bythe endoscopist. The following parameters were monitored: oxygensaturation, heart rate, blood pressure, EKG, CO2, respiratory rate, adequacy of pulmonary ventilation and reponse to care. Please refer to the patient's medical record flowsheets and nursing notes for moderate sedation details. Total physician intraservice time was 25 minutes. Vasu Parker MD 03/22/2022 2:37:24 PM This report has been signed electronically. Note Initiated On: 03/22/2022 12:07 PM Procedure Code(s): --- Professional --- 95231, Colonoscopy, flexible; with removalof tumor(s), polyp(s), or other lesion(s) bysnare technique Diagnosis Code(s): --- Professional --- D12.2, Benign neoplasm of ascending colon R19.5, Other fecal abnormalities CPT copyright 2020 [employer]. All rights reserved. The codes documented in this report are preliminary and upon petroleum products district supervisor reviewmay be revised to meet current compliance requirements. Scope In: 2:08:49 PM Scope Withdrawal Time 0 hours 10 minutes 2 seconds Scope Out: 2:31:43 PM us Vasu Parker MD PROCEDURE ORD Final Res ult * (ABNORMAL) LIPID PANEL W REFLEX MEASURED LDL (02/04/2022 1:00 PM CDT) CHOLESTEROL,TOTAL 220(H) 100 - 199 mg/dL 02/05/2022 8:53 AM CDT [facility] TRIGLYCERIDES 118 <150 mg/dL 02/05/2022 8:53 AM CDT [facility] HDL CHOLESTEROL 61 >40 mg/dL 8:53 AM CDT [facility] NON-HDL CHOLESTEROL 159(H) <145 mg/dl 02/05/2022 8:53 AM CDT [facility] CHOL/HDL RATIO 3.61 <4.50 02/05/2022 8:53 AM CDT [facility] LDL CHOLESTEROL 135(H) <=130 mg/dL 02/05/2022 8:53 AM CDT [facility] VLDL CHOLESTEROL 24 <=30 mg/dL 02/05/2022 8:53 AM CDT [facility] PROVIDER ORDERED STATUS RANDOM 02/05/2022 8:53 AM CDT [facility] Blood BLOOD SPECIMEN / Unknown Venipuncture / Unknown 02/04/2022 1:00 PM CDT 02/04/2022 1:02 PM CDT Julia Butts MD CHEMISTRY Final Result Performing Organization Address City/[facility]/ZIP Co de Phone Number [facility] [address] [place] [address], * ANTI HCV (02/04/2022 1:00 PM CDT) HEPATITIS C ANTIBODY Non-React juan carlos Non-React juan carlos 02/05/2022 11:43 AM CDT [facility] Comment:Antibodies to HCV no t detected; does not exclude the possibility of exposure to HCV. Blood BLOOD SPECIMEN / Unknown Venipuncture / Unknown 02/04/2022 1:00 PM CDT 02/04/2022 1:02 PM CDT Julia Butts MD SEND OUTS Final Result [facility] [address] * HPV HIGH RISK (02/04/2022 12:30 PM CDT) TYPE 16 Negative Negative 02/09/2022 11:45 AM CDT [facility] TYPE 18 Negative Negative 02/09/2022 11:45 AM CDT [facility] OTHER HIGH RISK TYPES Negative Negative 02/09/2022 11:45 AM CDT [facility] Other (Cervical) Non-Blood / Unknown 02/04/2022 12:30 PM CDT 02/07/2022 3:30 PM CDT Narrative [facility] - 02/09/2022 11:45 AM CDT HPV types 16, 18, 31, 33, 35, 39, 45, 51, 52, 56, 58, 59, 66 and 68 DNA were undetectable or below the pre-set threshold. Methodology: Jeyson Lia 4800 HPV Test us Julia Butts MD MICROBIOLOGY Final Result [facility] [address] [place] [address], [place] from Last 3 Months or Most Recently Relevant to Health Maintenance Insurance [facility] Advance Directives * Full Code (Latest Code Status on File) Date Activated Date Inactivated Comments 12/05/2022 6:25 PM 12/06/2022 1:01 PM Question Answer Comments Code Status Discussion: Reviewed Preferences Care Teams Corporate Travel Counselor Relationship Specialty Start Date End Date Julia Butts MD [address] [place] [address] PCP - General 10/27/05
--- NOTE | 2024-08-06 01:46 | CRLHL7_ITS ---
For Patients: As a result of the Century Cures Act, medical imaging exams and procedure reports are released immediately into your electronic medical record. You may view this report before your referring provider. If you have questions, please contact your health care provider. INDICATION: Right-sided rib/chest pain. TECHNIQUE: Chest 2 views. COMPARISON: Chest x-ray 03/14/2023. FINDINGS: The heart is not abnormally enlarged. The trachea is midline. There is patchy dlwwz-uoouyqd-erks-left lung base airspace opacification. No pleural effusion or pneumothorax. No acute osseous abnormality. IMPRESSION: Patchy ihofr-qbpieoy-orwy-left lung base airspace opacification, likely reflecting infectious/inflammatory process. Dictated by Gerard Cole MD @ 08/06/2024 2:11:31 AM (Electronically Signed)
--- NOTE | 2024-08-06 01:49 | ED.GENADULT ---
HPI - General Adult General Chief complaint: Unspecified Complaint, Adult Stated complaint: pain under R breast Time Seen by Provider: 08/06/24 01:40 Source: patient Mode of arrival: ambulatory Limitations: no limitations History of Present Illness HPI narrative: 59-year-old female presents the ED with pain underneath the right breast, sharp and sudden onset that started about an hour prior to arrival. Did not try taking any medication to help with symptoms. Pain is worse with deep breath. Has been having some mild cough and body aches for the past 2-3 days, thought she might be coming down with a cold or flu. No trauma or injury. No history of DVT or PE. No severe shortness of breath. No productive cough. Did not try any intervention to help with her symptoms prior to coming to ED. No exertional symptoms, no prior history of heart disease. Is a smoker and does report asthma which clearly is probably more COPD based on her description. Uses inhalers p.r.n. only, denies use of inhalers on a daily basis. Past medical history is only notable for this COPD. Only prescriptions are inhalers p.r.n., not regularly. No other long-term medications, no allergies. Smoker, denies any pertinent travel. ROS is negative for any other HEENT, GI, musculoskeletal, urinary changes or any other systems times 12 systems besides the respiratory and chest symptoms as described above. Related Data Home Medications ?Medication ?Instructions ?Recorded ?Confirmed fluticasone 250 mcg-salmeterol 50 1 inh inhalation Q12H 03/27/22 08/06/24 mcg/dose blistr powdr for inhalation (Advair Diskus) ipratropium 20 mcg-albuterol 100 1 puff inhalation Q6H PRN wheezing 03/27/22 08/06/24 mcg/actuation mist for inhalation (Combivent Respimat) ipratropium bromide 17 1 inh inhalation Q6H PRN 03/27/22 08/06/24 mcg/actuation HFA aerosol inhaler (Atrovent HFA) fluticasone fur. 200 mcg-umeclid 1 ea inhalation DAILY 08/06/24 08/06/24 62.5 mcg-vilant 25 mcg inhalat.powder (Trelegy Ellipta) Allergies Allergy/AdvReac Type Severity Reaction Status Date / Time No Known Drug Allergies Allergy Verified 08/06/24 00:55 [facility] Medical History (Updated 08/06/24 @ 03:43 by Tena Boucher MD) COPD (chronic obstructive pulmonary disease) ?J44.9 - Chronic obstructive pulmonary disease, unspecified (ICD-10) Hypoxia ?R09.02 - Hypoxemia (ICD-10) Ectopic ?O00.90 - Unspecified ectopic without intrauterine (ICD-10) Moderate persistent asthma ?J45.40 - Moderate persistent asthma, uncomplicated (ICD-10) Shortness of breath ?R06.02 - Shortness of breath (ICD-10) Surgical History History of bunionectomy ?Z98.890 - Other specified postprocedural states (ICD-10) Social History Highest level of school completed/degree received: high school graduate Smoking Status: Former smoker What tobacco products do you use: cigarettes Smoking quit date/years: <= 15 years ago Do you use any of these nicotine containing products: None Second hand tobacco smoke exposure: No How often do you have a drink containing alcohol: 2-3 times a week Alcohol type details: mix of the above How many standard drinks containing alcohol do you have on a typical day: 1 or 2 How often do you have six or more drinks on one occasion: Never AUDIT-C Alcohol total score: 3 Non-prescribed substance use: denies use Caffeine: Yes (coffee 4/daily) service: No Exam Const: Vital Signs, click to edit/add: Vital Signs - 24 hr 08/06/24 00:53 08/06/24 01:52 08/06/24 02:05 Temperature 98.2 F 98.2 F Pulse Rate Pulse Rate [Right Pulse Oximeter] 89 Respiratory Rate 18 Respiratory Rate [ Right Upper Rib/Br east] 20 Blood Pressure Blood Pressure [Le ft Upper Arm] 145/75 H Pulse Oximetry 92 Oxygen Delivery Me thod Room Air Oxygen Flow Rate 08/06/24 02:51 08/06/24 02:51 08/06/24 02:54 Temperature 98.2 F Pulse Rate Pulse Rate [Right Pulse Oximeter] Respiratory Rate Respiratory Rate [ Right Upper Rib/Br east] Blood Pressure Blood Pressure [Le ft Upper Arm] Pulse Oximetry 92 92 Oxygen Delivery Me thod Room Air Oxygen Flow Rate 3 08/06/24 03:00 08/06/24 03:12 Temperature 98.2 F Pulse Rate 105 H Pulse Rate [Right Pulse Oximeter] 89 Respiratory Rate 20 20 Respiratory Rate [ Right Upper Rib/Br east] Blood Pressure 128/64 Blood Pressure [Le ft Upper Arm] 145/75 H Pulse Oximetry 81 L 88 Oxygen Delivery Me thod Room Air Nasal Cannula Oxygen Flow Rate 3 Documenting provider has reviewed patient's vital signs: yes Common normals: no apparent distress General appearance: cooperative and well kempt Other: Friendly And cooperative, good historian HENMT: Common normals: normocephalic and moist oral mucous membranes Head and scalp: normocephalic Other: mild nasal congestion and postnasal drip. Moist membranes, no cyanosis to the lips. Eye: Common normals: conjunctivae normal General eye: normal appearance of both eyes Conjunctiva: conjunctiva(e) normal Neck & C-Spine: Common normals: full ROM and no lymphadenopathy Resp: Common normals: normal respiratory effort and no use of accessory muscles Other: Coarse expiratory wheeze, slight rhonchi right lung carbone, not present on left Cardio: Common normals: regular rate, regular rhythm, S1 normal heart sound, S2 normal heart sound and no murmurs Rate: regular rate Rhythm: regular rhythm Heart sounds: S1 normal and S2 normal GI: Common normals: Normal to inspection, nondistended, normoactive bowel sounds present, soft to palpation, non-tender, no hepatosplenomegaly and no masses Palpation: soft and no hepatosplenomegaly Extremity: Common normals: normal capillary refill and no pedal edema Neuro: Speech: speech normal Motor exam: no movement abnormalities noted Psych: Appearance: well kempt Attitude: engaged Activity/motor behavior: appropriate eye contact Mood and affect: euthymic mood Attention/concentration: attention grossly intact Memory/cognition: memory grossly intact Insight: insight good Judgement: judgment good Skin: Common normals: no rashes or lesions noted General skin exam: no rashes or lesions noted Course Course ED Course: 15-year-old female with pain under the right breast suspicious for pleuritic chest pain. Cannot exclude cardiac process, pneumothorax, pneumonia, COPD exacerbation, pulmonary embolism, musculoskeletal etiology, amongst others. Will give DuoNeb and Toradol, chest x-ray, typical labs including D-dimer and an EKG. Swabs are influenza, COVID and RSV. Await findings and clinical response. Suspect COPD exacerbation. Reevaluation(s) Time of Reevaluation #1: 02:43 Reevaluation #1: Patient feeling a little better after the Toradol and DuoNeb. Counseled that the x-ray is reflective of a pneumonia, labs are suspicious for this as well based on elevated white count. I a.m. concerned about the elevated D-dimer and would like to perform a CT of the chest as well. Rationale discussed. She is a little tachycardic and she does smoke. She is in agreement. Await this finding. Patient's O2 sats have been dwindling down are now around 81, will start on supplemental oxygen. Exam is stable. Time of Reevaluation #2: 03:43 Reevaluation #2: Counseled patient on findings of CT. No embolism but bilateral pneumonia is noted. She is requiring 3 L of oxygen, will give 60 of IV Solu-Medrol, started on Rocephin and azithromycin and admit for inpatient management of her acute hypoxic respiratory failure, COPD flare and bilateral pneumonia. Update: Admission accepted by hospitalist team. Vital Signs Vital signs: Initial Vital Signs Temperature 98.2 F 08/06/24 00:53 Temperature Source Temporal Artery Scan 08/06/24 00:53 Pulse Rate 89 08/06/24 00:53 Respiratory Rate 18 08/06/24 00:53 Blood Pressure 145/75 H 08/06/24 00:53 Blood Pressure Mean 98 08/06/24 00:53 Blood Pressure Position Sitting 08/06/24 00:53 Pulse Oximetry 92 08/06/24 00:53 Oxygen Delivery Method Room Air 08/06/24 00:53 Vital Signs Temperature 98.2 F 08/06/24 00:53 Pulse Rate 89 08/06/24 00:53 Respiratory Rate 18 08/06/24 00:53 Blood Pressure 145/75 H 08/06/24 00:53 Pulse Oximetry 92 08/06/24 00:53 Oxygen Delivery Method Room Air 08/06/24 00:53 Temperature 98.2 F 08/06/24 03:00 Pulse Rate 105 H 08/06/24 03:12 Respiratory Rate 20 08/06/24 03:12 Blood Pressure 128/64 02/04/25 03:12 Pulse Oximetry 88 08/06/24 03:12 Oxygen Delivery Method Nasal Cannula 08/06/24 03:12 Oxygen Flow Rate 3 08/06/24 03:12 Medications Administered Medications: Generic Name Dose Route Start Last Admin Trade Name Freq PRN Reason Stop Dose Admin Azithromycin 500 mg 08/06/24 03:23 08/06/24 03:29 Azithromycin 250 Mg Tablet PO 08/06/24 03:24 500 mg ONCE ONE Administration Ceftriaxone Sodium 1 gm/ 100 mls @ 200 mls/hr 08/06/24 03:23 08/06/24 03:30 Sodium Chloride IVPB 08/06/24 03:24 200 mls/hr ONCE ONE Administration Methylprednisolone Sodium Succinate 60 mg 08/06/24 03:23 08/06/24 03:31 Methylprednisolone Sod Succ 40 Mg/Ml IVP 08/06/24 03:24 60 mg ONCE ONE Administration Discontinued Medications Generic Name Dose Route Start Last Admin Trade Name Freq PRN Reason Stop Dose Admin Albuterol/Ipratropium 1 neb 08/06/24 01:46 08/06/24 01:52 Iprat-Albut 0.5-2.5 Mg/3 Ml Neb IH 08/06/24 01:47 1 neb ONCE ONE Administration Ketorolac Tromethamine 10 mg 08/06/24 01:46 08/06/24 01:52 Ketorolac 10 Mg Tablet PO 08/06/24 01:47 10 mg ONCE ONE Administration Medical Decision Making Lab Data Lab results reviewed: Yes I reviewed the patient's lab results Lab results narrative: Negative troponin, leukocytosis with left shift suspicious for bacterial etiology. D-dimer is a little elevated which is worrisome for pulmonary embolism. Labs: Lab Results 08/06/24 08/06/24 Range/Units 01:46 01:55 WBC 14.25 H (4.50-11.00) K/uL RBC 4.27 (4.00-5.20) m/uL Hgb 12.7 (12.0-16.0) gm/dL Hct 39.3 (33.0-51.0) % MCV 92 (80-100) fL MCH 30 (26-34) pg MCHC 32 (32-36) gm/dL RDW Coeff of Umm 15.2 (11.5-15.5) % Plt Count 330 (140-440) K/uL Neut % (Auto) 77.5 H (42.0-72.0) % Lymph % (Auto) 11.6 L (20-44) % [place] % (Auto) 10.0 (0.0-11.0) % Eos % (Auto) 0.5 (0.0-7.0) % Baso % (Auto) 0.3 (0.0-3.0) % Neut # (Auto) 11.00 H (1.7-7.0) K/uL Lymph # (Auto) 1.70 (0.90-2.90) K/uL [place] # (Auto) 1.40 H (0.00-0.90) K/UL Eos # (Auto) 0.10 (0.00-0.50) K/uL Baso # (Auto) 0.00 (0.00-0.30) K/uL Abs Immat Gran (auto) 0.00 (0.00-0.30) K/uL Imm/Tot Granulo (auto) 0.1 % D-Dimer Quant (PE/DVT) 0.91 H (0.00-0.50) ug/ml Sodium 138 (135-149) mmol/L Potassium 3.9 (3.6-5.1) mmol/L Chloride 101 (96-114) mmol/L Carbon Dioxide 32 (20-32) mmol/L Anion Gap 5 L (7-15) mEq/L BUN 14 (7-30) mg/dL Creatinine 0.5 (0.5-1.5) mg/dL Estimated Creat Clear 87.02 Estimated GFR 108 ml/min Glucose 120 H (60-115) mg/dL Calcium 8.5 (8.4-10.6) mg/dL SARS-CoV-2 (PCR) Negative SARS-CoV-2 (Negative) Influenza Type A (PCR) Negative PCR FLU A (Negative) Influenza Type B (PCR) Negative PCR FLU B (Negative) RSV (PCR) Negative PCR RSV (Negative) POC Troponin I 0.00 L (0.01-0.04) ng/ml Imaging Data Chest x-ray: Attestation: I have reviewed the pertinent imaging results. My impression: Bilateral infiltrates, right greater than left. No effusion or cardiomegaly Radiologist's impression: IMPRESSION: Patchy opwcc-[id number]-qvtr-left lung base airspace opacification, likely reflecting infectious/inflammatory process. Dictated by Gerard Cole MD @ 08/06/2024 2:11:[address]: Attestation: I have reviewed the pertinent imaging results. My impression: Bilateral pneumonia, no signs of pulmonary embolism or effusion Radiologist's impression: Findings: Pulmonary arteries: No pulmonary embolism appreciated. Lungs: Multifocal gyyqi-bochchh-ouur-left pulmonary opacities are again noted and again suspicious for infection. Bronchial wall thickening and inspissated endobronchial debris noted. Mediastinum: No acute abnormality appreciated. Calcified atherosclerosis. Lymph nodes: Prominent nodes. Upper abdomen: No acute abnormality appreciated. Soft tissues: No acute abnormality appreciated. Bones: No acute abnormality appreciated. Impression: Redemonstration of multifocal pneumonia as seen on same day chest radiograph. Follow-up CT in 8-12 weeks recommended. ECG Data Attestation: I personally reviewed and interpreted this ECG as follows: Prior ECG tracings: available for review (Comparison 03/14/2023) Interpretation: Sinus rhythm with an initial rate of 119. Septal changes are unchanged from 20/3. Otherwise no acute ST or T-wave abnormalities. We left axis deviation with normal intervals. Discharge Plan Discharge Clinical Impression: Acute respiratory failure with hypoxia, Community acquired pneumonia, COPD exacerbation Patient Disposition: Admitted As Inpatient
--- OUTSIDE RECORDS SUMMARY | 2024-08-06 01:51 | XMS_ITS | Clinical Summary ---
Author Organization [facility] Address [place], [place] [address] Care Team Providers Care Engraver Hand [employer] Name Role Phone Julia Butts MD Primary [...] Department Care Team Description 06/07/2024 1:00 PM ROTO MIXER OPERATOR Phone Office Visit [facility] [address] [place] [id number] Julia Butts MD Cough (States she finished Zpack on 06/03/24 and is feeling a little better than she was prior to Rx's, however, symptoms continue. Patient wondering if she should be prescribed another abx); Telehealth ([phone]) 06/07/2024 Travel 06/06/2024 Nurse Triage [facility] [address] [place] [id number] Julia Butts MD Cough 05/27/2024 10:45 AM ROTO MIXER OPERATOR Ancillary Procedure [facility] [address] [place] [id number] 05/27/2024 10:15 AM ROTO MIXER OPERATOR Office Visit [facility] [address] [place] [id number] Isa Pitts PA URI 05/27/2024 Travel 05/21/2024 Refill [facility] [address] [place] [id number] Julia Butts MD Refill Request (Saulo Benton) [...] on file Legal Sex Female 6:19 AM ROTO MIXER OPERATOR Gender Identity Not on file Sexual Orientation Not on file Obstetrics History Last Filed Vital Signs Vital Sign Reading Time Taken Comments Blood Pressure 138/83 05/27/2024 10:14 AM ROTO MIXER OPERATOR Pulse 112 05/27/2024 10:14 AM ROTO MIXER OPERATOR Temperature 36.8 C (98.2 F) 05/27/2024 10:14 AM ROTO MIXER OPERATOR Respiratory Rate 16 12/06/2022 7:26 AM CDT Oxygen Saturation 90% 05/27/2024 10:14 AM ROTO MIXER OPERATOR Inhaled Oxygen Concentration - - Weight 55.1 kg (121 lb 8 oz) 05/27/2024 10:14 AM ROTO MIXER OPERATOR Height 154.9 cm (5' 1) 12/05/2022 9:46 [...] COVID/FLU/RSV PANEL Routine 05/27/2024 1 0:38 AM ROTO MIXER OPERATOR Acute cough XR CHEST 2 VIEWS PA AND LATERAL STAT 05/27/2024 10:26 AM ROTO MIXER OPERATOR Acute cough XR MAMMO BILAT SCREENING Routine [...] Results * COVID/FLU/RSV PANEL (05/27/2024 10:38 AM ROTO MIXER OPERATOR) COVID 19 [facility] Negative Negative 05/27/2024 11:35 PM ROTO MIXER OPERATOR [facility] Comment:All PCR tests are swift bject to false negative result due to variability in viral load and collection technique. A negative result does not rule out a SARS-CoV-2 infection. Clinical correlation required. INFLUENZA A PCR Negative 4 11:35 PM ROTO MIXER OPERATOR [facility] INFLUENZA B PCR Negative 4 11:35 PM ROTO MIXER OPERATOR [facility] Respiratory Syncytial Virus Negative 05/27/2024 11:35 PM ROTO MIXER OPERATOR [facility] Swab NASOPHARYNGEAL SWAB / Unknown Non-Blood / Unknown 05/27/2024 10:38 AM ROTO MIXER OPERATOR 05/27/2024 10:38 AM ROTO MIXER OPERATOR Isa CASH MICROBIOLOGY Final Result [facility] [address] [place] [address], [place] * XR CHEST 2 VIEWS PA AND LATERAL (05/27/2024 10:26 AM ROTO MIXER OPERATOR) Anatomical Region Laterality Modality CHEST, THORAX, Lung, HEART Compu audra Radiography 05/27/2024 10:3 4 AM ROTO MIXER OPERATOR Impressions 05/27/2024 10:34 AM ROTO MIXER OPERATOR No acute or significant findings. Dictated by Peggy Loaiza MD @ 05/27/2024 10:34:43 AM (Electronically Signed) Narrative 05/27/2024 10:34 AM ROTO MIXER OPERATOR For Patients: As a result of the [...] health care provider. XR MAMMO BILAT SCREENING [[id number]] CLINICAL HISTORY: This is an asymptomatic 58 y.o. patient. INDICATION FOR EXAM: Mammogram Screening. TECHNIQUE: CC & MLO views were obtained. This study was evaluated with the assistance of Computer-Aided Detection. COMPARISON FILM: Yes 04/07/22 [facility] 02/04/21 [employer] FINDINGS: The breasts are extremely dense, which [...] 12:07 PM Procedure Code(s): --- Professional --- 93685, Colonoscopy, flexible; with removalof tumor(s), polyp(s), or other lesion(s) bysnare technique Diagnosis Code(s): --- Professional --- D12.2, Benign neoplasm of ascending colon R19.5, Other fecal abnormalities CPT copyright 2020 [employer]. All rights reserved. The codes documented in this report are preliminary and upon media technician reviewmay be revised to meet current compliance requirements. Scope In: 2:08:49 PM Scope Withdrawal Time 0 hours 10 minutes 2 seconds Scope Out: 2:31:43 PM us Vasu Parker MD PROCEDURE ORD Final Res ult * (ABNORMAL) LIPID PANEL W REFLEX MEASURED LDL (02/04/2022 1:00 PM CDT) CHOLESTEROL,TOTAL 220(H) 100 - 199 mg/dL 02/05/2022 8:53 AM CDT [facility] TRIGLYCERIDES 118 <150 mg/dL 02/05/2022 8:53 AM CDT [facility] HDL CHOLESTEROL 61 >40 mg/dL 8:53 AM CDT [facility] NON-HDL CHOLESTEROL 159(H) <145 mg/dl 02/05/2022 8:53 AM CDT [facility] CHOL/HDL RATIO 3.61 <4.50 02/05/2022 8:53 AM CDT [facility] LDL CHOLESTEROL 135(H) <=130 mg/dL 02/05/2022 8:53 AM CDT [facility] VLDL CHOLESTEROL 24 <=30 mg/dL 02/05/2022 8:53 AM CDT [facility] PROVIDER ORDERED STATUS RANDOM 02/05/2022 8:53 AM CDT [facility] Blood BLOOD SPECIMEN / Unknown Venipuncture / Unknown 02/04/2022 1:00 PM CDT 02/04/2022 1:02 PM CDT Julia Butts MD CHEMISTRY Final Result Performing Organization Address City/[facility]/ZIP Co de Phone Number [facility] [address] [place] [address], * ANTI HCV (02/04/2022 1:00 PM CDT) HEPATITIS C ANTIBODY Non-React juan carlos Non-React juan carlos 02/05/2022 11:43 AM CDT [facility] Comment:Antibodies to HCV no t detected; does not exclude the possibility of exposure to HCV. Blood BLOOD SPECIMEN / Unknown Venipuncture / Unknown 02/04/2022 1:00 PM CDT 02/04/2022 1:02 PM CDT Julia Butts MD SEND OUTS Final Result [facility] [address] * HPV HIGH RISK (02/04/2022 12:30 PM CDT) TYPE 16 Negative Negative 02/09/2022 11:45 AM CDT [facility] TYPE 18 Negative Negative 02/09/2022 11:45 AM CDT [facility] OTHER HIGH RISK TYPES Negative Negative 02/09/2022 11:45 AM CDT [facility] Other (Cervical) Non-Blood / Unknown 02/04/2022 12:30 PM CDT 02/07/2022 3:30 PM CDT Narrative [facility] - 02/09/2022 11:45 AM CDT HPV types 16, 18, 31, 33, 35, 39, 45, 51, 52, 56, 58, 59, 66 and 68 DNA were undetectable or below the pre-set threshold. Methodology: Jeyson Lia 4800 HPV Test us Julia Butts MD MICROBIOLOGY Final Result [facility] [address] [place] [address], [place] from Last 3 Months or Most Recently Relevant to Health Maintenance Insurance [facility] Advance Directives * Full Code (Latest Code Status on File) Date Activated Date Inactivated Comments 12/05/2022 6:25 PM 12/06/2022 1:01 PM Question Answer Comments Code Status Discussion: Reviewed Preferences Care Teams Engraver Hand [employer] Relationship Specialty Start Date End Date Julia Butts MD [address] [place] [address] PCP - General 10/27/05
--- OUTSIDE RECORDS SUMMARY | 2024-08-06 01:51 | XMS_ITS | Continuity of Care Document ---
Author Organization [facility] Address [address] [place] [address] Phone Care Team Providers Care Mine Captain Name Role Phone Irina Ahumada MD Unavailable [...] PA Far Lateral/Transfacet/Extraforaminal, L umbar HNP Office/Outpatient Visit,[facility] 2022 Advance Directives Directive Yes / No Effective Date File Name No Information Encounters Encounter Description Practice Location Reason(s) For Visit Diagnoses Date Provider Providers Copied on Encounter [facility], [address], [place], [place], [id number], [place] tel:[phone] [facility] Encounter for follow-up examination after completed treatment for conditions other than malignant neoplasm 3 Zita Arevalo. [facility], [address] [place] [address] [address], [place], [address], [place]. tel:[phone] Referring Provider: Irina Ahumada, [facility] [address], [place], [address]. tel:[phone] [facility], [address], [place], [place], [id number], [place] tel:[phone] [facility] No Information 3 Jhoan Ortiz. [facility], [address], [place], [address], [place]. [phone] Referring Provider: Irina Ahumada, [facility] [address], [place], [address]. tel:[phone] [facility], [address], [place], [place], [id number], [place] tel:[phone] [facility] No Information 3 Zita Arevalo. [facility], [address], [place], [address], [place]. tel: [phone] Referring Provider: Irina Ahumada, [facility] [address], [place], [address]. tel:[phone] Office/Outpat ient Visit,New, Mod [facility], [address], [place], [place], [id number], [place] tel:[phone] [facility] Other intervertebral disc displacement, lumbar regionRadiculop athy, lumbar region October- 3 Zita Arevalo. [facility], [address], [place], [address], [place]. [phone] Referring Provider: Irina Ahumada, [facility] [address], [place], [address]. tel:[phone] Family History Family Member Type Diagnosis Age At Onset No Information Payers Payer name Insurance type Covered democrat ID Marekdaniella leyva(s) [facility] [id number] [facility] [id number] Social History Type Description Quantity Date Captured [...]
[2024-08-06] MEDS: KETOROLAC 10 MG TABLET PO (01:52)
[2024-08-06] MEDS: IPRAT-ALBUT 0.5-2.5 MG/3 ML NEB 1 NEB IH ×4 (01:52→20:18)
[2024-08-06 02:02] LABS: Basophils Percent Auto 0.3 % (0.0-3.0); Eosinophils Percent Auto 0.5 % (0.0-7.0); Hematocrit 39.3 % (33.0-51.0); Hemoglobin* 12.7 gm/dL (12.0-16.0); Immature Granulocytes Pct Auto 0.1 %; Lymphocytes Percent Auto 11.6 % (20-44); Mean Corpuscular HGB Conc 32 gm/dL (32-36); Mean Corpuscular Hemoglobin 30 pg (26-34); Mean Corpuscular Volume 92 fL (80-100); Neutrophils Percent Auto 77.5 % (42.0-72.0); Platelet Count* 330 K/uL (140-440); RDW Coefficient of Variation % 15.2 % (11.5-15.5); Red Blood Count 4.27 m/uL (4.00-5.20); White Blood Count* 14.25 K/uL (4.50-11.00)
[2024-08-06 02:05] LABS: Slide Review Reflex No
[2024-08-06 02:24] LABS: Chloride* 101 mmol/L (96-114); Sodium* 138 mmol/L (135-149)
[2024-08-06 02:27] LABS: Creatinine* 0.5 mg/dL (0.5-1.5); Est. Creatinine Clearance* 87.02; Estimated Glomerular Filt Rate 108 ml/min
[2024-08-06 02:28] LABS: Anion Gap 5 mEq/L (7-15); Blood Urea Nitrogen* 14 mg/dL (7-30); Calcium* 8.5 mg/dL (8.4-10.6); Carbon Dioxide* 32 mmol/L (20-32); Glucose* 120 mg/dL (60-115)
[2024-08-06 02:30] LABS: D Dimer Quantitative* 0.91 ug/ml (0.00-0.50)
[2024-08-06 02:39] LABS: Potassium* 3.9 mmol/L (3.6-5.1)
--- NOTE | 2024-08-06 02:39 | CRLHL7_ITS ---
For Patients: As a result of the Century Cures Act, medical imaging exams and procedure reports are released immediately into your electronic medical record. You may view this report before your referring provider. If you have questions, please contact your health care provider. Indication: Right-sided chest pain, elevated D-dimer Technique: Postcontrast CTA of the chest following 95 mL Isovue 370 IV contrast. Axial MIP images obtained. Comparison: Same day chest radiograph, CTA chest performed 03/27/2022 Findings: Pulmonary arteries: No pulmonary embolism appreciated. Lungs: Multifocal hfypq-[id number]-rlix-left pulmonary opacities are again noted and again suspicious for infection. Bronchial wall thickening and inspissated endobronchial debris noted. Mediastinum: No acute abnormality appreciated. Calcified atherosclerosis. Lymph nodes: Prominent nodes. Upper abdomen: No acute abnormality appreciated. Soft tissues: No acute abnormality appreciated. Bones: No acute abnormality appreciated. Impression: Redemonstration of multifocal pneumonia as seen on same day chest radiograph. Follow-up CT in 8-12 weeks recommended. Please note that all CT scans at this facility use dose modulation, iterative reconstruction, and/or weight-based dosing when appropriate to reduce radiation dose to as low as reasonably achievable. Dictated by Harsha Keyes MD @ 08/06/2024 3:17:06 AM (Electronically Signed)
[2024-08-06 02:55] LABS: PCR FLU A Negative PCR FLU A (Negative); PCR FLU B Negative PCR FLU B (Negative); PCR RSV Negative PCR RSV (Negative); SARS PCR* Negative SARS-CoV-2 (Negative)
[2024-08-06] MEDS: AZITHROMYCIN 250 MG TABLET 500 MG PO (03:29)
[2024-08-06] MEDS: cefTRIAXone 1 GM in 0.9 % SODIUM CHLORIDE Mini-bag 100 ML IVPB (03:30)
[2024-08-06] MEDS: METHYLPREDNISOLONE SOD SUCC 40 MG/ML 60 MG IVP (03:31)
--- NOTE | 2024-08-06 06:26 | W.PM.THH&P_ITS ---
Telehealth- H&P: HPI History of Present Illness Date Seen: 08/06/24 Chief complaint: pain under R breast Narrative: Margoth Camacho is seen as an Interactive Telehealth visit. Margoth Camacho is a 59 year old female who is [facility] Medical History (Updated 08/06/24 @ 03:43 by Tena Boucher MD) COPD (chronic obstructive pulmonary disease) ?J44.9 - Chronic obstructive pulmonary disease, unspecified (ICD-10) Hypoxia ?R09.02 - Hypoxemia (ICD-10) Ectopic ?O00.90 - Unspecified ectopic without intrauterine (ICD- 10) Moderate persistent asthma ?J45.40 - Moderate persistent asthma, uncomplicated (ICD-10) Shortness of breath ?R06.02 - Shortness of breath (ICD-10) Surgical History History of bunionectomy ?Z98.890 - Other specified postprocedural states (ICD-10) Social History What is your current living situation?: I presently have a place to live Problems where you live: no known problems Problems where you live details: n/a In the past 12 months, utilities in danger of being shut off: no In past 12 months, lack of transportation kept you from medical appts, meetings, work, or getting things needed for daily living: no In the past 12 mos, have been you worried that your food would run out before you had money to buy more?: never true In the past 12 mos, the food you bought just didn't last and you didn't have money to buy more?: never true Highest level of school completed/degree received: high school graduate Smoking Status: Current every day smoker What tobacco products do you use: cigarettes Smoking packs per day: 1 Smoking cigarettes per day: 20.0 Smoking quit date/years: <= 15 years ago Do you use any of these nicotine containing products: None Second hand tobacco smoke exposure: No How often do you have a drink containing alcohol: 2-3 times a week Alcohol type details: mix of the above How many standard drinks containing alcohol do you have on a typical day: 1 or 2 How often do you have six or more drinks on one occasion: Never AUDIT-C Alcohol total score: 3 Non-prescribed substance use: denies use Caffeine: Yes (coffee) How often does anyone, including family, friends and others, physically hurt you : never How often does anyone, including family, friends and others, insult or talk down to you: never How often does anyone, including family, friends and others, threaten you with harm: never How often does anyone, including family, friends and others, scream or curse at you: never service: No Meds Home Medications and Allergies Home Medications ?Medication ?Instructions ?Recorded ?Confirmed ?Type fluticasone 250 mcg-salmeterol 50 1 inh inhalation Q12H 03/27/22 08/06/24 History mcg/dose blistr powdr for inhalation (Advair Diskus) ipratropium 20 mcg-albuterol 100 1 puff inhalation Q6H PRN wheezing 03/27/22 08/06/24 History mcg/actuation mist for inhalation (Combivent Respimat) ipratropium bromide 17 1 inh inhalation Q6H PRN 03/27/22 08/06/24 History mcg/actuation HFA aerosol inhaler (Atrovent HFA) fluticasone fur. 200 mcg-umeclid 1 ea inhalation DAILY 08/06/24 08/06/24 History 62.5 mcg-vilant 25 mcg inhalat.powder (Trelegy Ellipta) Allergies Allergy/AdvReac Type Severity Reaction Status Date / Time No Known Drug Allergies Allergy Verified 08/06/24 00:55 Exam Narrative Exam Narrative: Physical Exam GENERAL: ?vital signs reviewed, well developed and nourished, in no distress HEENT: pupils are equal round and reactive to light, extraocular movements are grossly within normal limits and oral mucosa is moist. NECK: Supple without lymphadenopathy or thyromegaly according to nursing staff examination observation HEART: Regular rate and rhythm without any rubs, murmurs, or gallops. LUNGS: Clear to auscultation bilaterally with good air movement throughout ABDOMEN: Observation from nurse assisted exam, abdomen appears soft, nontender, and nondistended with Positive bowel sounds noted. EXTREMITIES: Strength and sensation is observed to be grossly within normal limits in the upper and lower extremities.? No focal strength deficit is observed. SKIN:? Observed warm and dry with color normal Const Vital Signs, click to edit/add: Vital Signs - 24 hr 08/06/24 00:53 08/06/24 01:52 08/06/24 02:05 Temperature 98.2 F 98.2 F Pulse Rate Pulse Rate [Pulse Oximeter] Pulse Rate [Right Pulse Oximeter] 89 Respiratory Rate 18 Respiratory Rate [Right Upper Rib/Breast] 20 Blood Pressure Blood Pressure [Left Arm] Blood Pressure [Left Upper Arm] 145/75 H Pulse Oximetry 92 Oxygen Delivery Method Room Air Oxygen Flow Rate 08/06/24 02:51 08/06/24 02:51 08/06/24 02:54 Temperature 98.2 F Pulse Rate Pulse Rate [Pulse Oximeter] Pulse Rate [Right Pulse Oximeter] Respiratory Rate Respiratory Rate [Right Upper Rib/Breast] Blood Pressure Blood Pressure [Left Arm] Blood Pressure [Left Upper Arm] Pulse Oximetry 92 92 Oxygen Delivery Method Room Air Oxygen Flow Rate 3 08/06/24 03:00 08/06/24 03:12 08/06/24 03:31 Temperature 98.2 F Pulse Rate 105 H 99 Pulse Rate [Pulse Oximeter] Pulse Rate [Right Pulse Oximeter] 89 Respiratory Rate 20 20 20 Respiratory Rate [Right Upper Rib/Breast] Blood Pressure 128/64 126/74 Blood Pressure [Left Arm] Blood Pressure [Left Upper Arm] 145/75 H Pulse Oximetry 81 L 88 89 Oxygen Delivery Method Room Air Nasal Cannula Nasal Cannula Oxygen Flow Rate 3 3 08/06/24 03:45 08/06/24 04:09 08/06/24 04:19 Temperature 98.2 F 98.2 F 98.7 F Pulse Rate 99 Pulse Rate [Pulse Oximeter] 93 Pulse Rate [Right Pulse Oximeter] 89 Respiratory Rate 20 20 18 Respiratory Rate [Right Upper Rib/Breast] Blood Pressure 126/74 Blood Pressure [Left Arm] 122/71 Blood Pressure [Left Upper Arm] 145/75 H Pulse Oximetry 93 90 Oxygen Delivery Method Nasal Cannula Nasal Cannula Oxygen Flow Rate 3 3 08/06/24 04:19 Temperature Pulse Rate Pulse Rate [Pulse Oximeter] Pulse Rate [Right Pulse Oximeter] Respiratory Rate Respiratory Rate [Right Upper Rib/Breast] Blood Pressure Blood Pressure [Left Arm] Blood Pressure [Left Upper Arm] Pulse Oximetry Oxygen Delivery Method Nasal Cannula Oxygen Flow Rate 3 Hospitalist - H&P: Result Labs Labs: Short CBC 08/06/24 Range/Units 01:55 WBC 14.25 H (4.50-11.00) K/uL Hgb 12.7 (12.0-16.0) gm/dL Hct 39.3 (33.0-51.0) % Plt Count 330 (140-440) K/uL BMP 08/06/24 01:55 Sodium 138 Potassium 3.9 Chloride 101 Carbon Dioxide 32 BUN 14 Creatinine 0.5 Glucose 120 H Calcium 8.5 Telehealth: Statement Statement Telehealth Visit: Today's History and Physical is provided via interactive telehealth by George Mancuso MD.? Patient is located at [facility].? Provider is located at [facility].? Nursing staff assisted with the patient's exam. The visit being done today meets criteria for a telehealth visit and the patient or patient?s parent/guardian is aware the visit is a telehealth visit.
--- NOTE | 2024-08-06 06:33 | W.PM.TELEH&P ---
Telehealth- H&P: HPI History of Present Illness Date Seen: 08/06/24 Chief complaint: pain under R breast Narrative: Margoth Camacho is seen as an Interactive Telehealth visit. Margoth Camacho is a 59 year old male who is who is seen for right-sided chest pain in the setting of upper respiratory symptoms. The patient has a history of COPD and asthma. Otherwise she is quite healthy. About 2 days prior to admission she developed upper respiratory symptoms with cough, myalgias. At that time she did not have any dyspnea. He awoke with right-sided chest pain under her right breast. The pain was worse with inspiration. She reported the pain was severe thus she presented to the ED without trying any medications. She has no history of VTE. No history of CAD. She is a smoker, she only uses her inhalers as needed, does not typically need them. She did not notice any fevers on the day of admission. In the ER she was noted to be hypoxic requiring 3 L/min. Chest x-ray showed right greater than left infiltrates in the bases. She also underwent a CT of the chest which showed no evidence of pulmonary embolism. They did recommend follow-up CT in 8 to 12 weeks to document resolution. An EKG was obtained which showed sinus bradycardia with left axis deviation with no acute ischemic changes. Troponin was negative Review of Systems Status of ROS: Reports: 10 or more systems reviewed and unremarkable except as noted in History and below [facility] Medical History (Updated 08/06/24 @ 03:43 by Tena Boucher MD) COPD (chronic obstructive pulmonary disease) ?J44.9 - Chronic obstructive pulmonary disease, unspecified (ICD-10) Hypoxia ?R09.02 - Hypoxemia (ICD-10) Ectopic ?O00.90 - Unspecified ectopic without intrauterine (ICD-10) Moderate persistent asthma ?J45.40 - Moderate persistent asthma, uncomplicated (ICD-10) Shortness of breath ?R06.02 - Shortness of breath (ICD-10) Surgical History History of bunionectomy ?Z98.890 - Other specified postprocedural states (ICD-10) Social History What is your current living situation?: I presently have a place to live Problems where you live: no known problems Problems where you live details: n/a In the past 12 months, utilities in danger of being shut off: no In past 12 months, lack of transportation kept you from medical appts, meetings, work, or getting things needed for daily living: no In the past 12 mos, have been you worried that your food would run out before you had money to buy more?: never true In the past 12 mos, the food you bought just didn't last and you didn't have money to buy more?: never true Highest level of school completed/degree received: high school graduate Smoking Status: Current every day smoker What tobacco products do you use: cigarettes Smoking packs per day: 1 Smoking cigarettes per day: 20.0 Smoking quit date/years: <= 15 years ago Do you use any of these nicotine containing products: None Second hand tobacco smoke exposure: No How often do you have a drink containing alcohol: 2-3 times a week Alcohol type details: mix of the above How many standard drinks containing alcohol do you have on a typical day: 1 or 2 How often do you have six or more drinks on one occasion: Never AUDIT-C Alcohol total score: 3 Non-prescribed substance use: denies use Caffeine: Yes (coffee) How often does anyone, including family, friends and others, physically hurt you: never How often does anyone, including family, friends and others, insult or talk down to you: never How often does anyone, including family, friends and others, threaten you with harm: never How often does anyone, including family, friends and others, scream or curse at you: never service: No Meds Home Medications and Allergies Home Medications ?Medication ?Instructions ?Recorded ?Confirmed ?Type fluticasone 250 mcg-salmeterol 50 1 inh inhalation Q12H 03/27/22 08/06/24 History mcg/dose blistr powdr for inhalation (Advair Diskus) ipratropium 20 mcg-albuterol 100 1 puff inhalation Q6H PRN wheezing 03/27/22 08/06/24 History mcg/actuation mist for inhalation (Combivent Respimat) ipratropium bromide 17 1 inh inhalation Q6H PRN 03/27/22 08/06/24 History mcg/actuation HFA aerosol inhaler (Atrovent HFA) fluticasone fur. 200 mcg-umeclid 1 ea inhalation DAILY 08/06/24 08/06/24 History 62.5 mcg-vilant 25 mcg inhalat.powder (Trelegy Ellipta) Allergies Allergy/AdvReac Type Severity Reaction Status Date / Time No Known Drug Allergies Allergy Verified 08/06/24 00:55 Exam Narrative Exam Narrative: Physical Exam GENERAL: ?vital signs reviewed, well developed and nourished,illl but non-toxic HEENT: pupils are equal round and reactive to light, extraocular movements are grossly within normal limits and oral mucosa is moist. NECK: Supple without lymphadenopathy or thyromegaly according to nursing staff examination observation HEART: Regular rate and rhythm without any rubs, murmurs, or gallops. LUNGS: Bibasilar rhonchi, decreased air movement with end expiratory wheezes ABDOMEN: Observation from nurse assisted exam, abdomen appears soft, nontender, and nondistended with Positive bowel sounds noted. EXTREMITIES: Strength and sensation is observed to be grossly within normal limits in the upper and lower extremities.? No focal strength deficit is observed. SKIN:? Observed warm and dry with color normal Const Vital Signs, click to edit/add: Vital Signs - 24 hr 08/06/24 00:53 08/06/24 01:52 08/06/24 02:05 Temperature 98.2 F 98.2 F Pulse Rate Pulse Rate [Pulse Oximeter] Pulse Rate [Right Pulse Oximeter] 89 Respiratory Rate 18 Respiratory Rate [Right Upper Rib/Breast] 20 Blood Pressure Blood Pressure [Left Arm] Blood Pressure [Left Upper Arm] 145/75 H Pulse Oximetry 92 Oxygen Delivery Method Room Air Oxygen Flow Rate 08/06/24 02:51 08/06/24 02:51 08/06/24 02:54 Temperature 98.2 F Pulse Rate Pulse Rate [Pulse Oximeter] Pulse Rate [Right Pulse Oximeter] Respiratory Rate Respiratory Rate [Right Upper Rib/Breast] Blood Pressure Blood Pressure [Left Arm] Blood Pressure [Left Upper Arm] Pulse Oximetry 92 92 Oxygen Delivery Method Room Air Oxygen Flow Rate 3 08/06/24 03:00 08/06/24 03:12 08/06/24 03:31 Temperature 98.2 F Pulse Rate 105 H 99 Pulse Rate [Pulse Oximeter] Pulse Rate [Right Pulse Oximeter] 89 Respiratory Rate 20 20 20 Respiratory Rate [Right Upper Rib/Breast] Blood Pressure 128/64 126/74 Blood Pressure [Left Arm] Blood Pressure [Left Upper Arm] 145/75 H Pulse Oximetry 81 L 88 89 Oxygen Delivery Method Room Air Nasal Cannula Nasal Cannula Oxygen Flow Rate 3 3 08/06/24 03:45 08/06/24 04:09 08/06/24 04:19 Temperature 98.2 F 98.2 F 98.7 F Pulse Rate 99 Pulse Rate [Pulse Oximeter] 93 Pulse Rate [Right Pulse Oximeter] 89 Respiratory Rate 20 20 18 Respiratory Rate [Right Upper Rib/Breast] Blood Pressure 126/74 Blood Pressure [Left Arm] 122/71 Blood Pressure [Left Upper Arm] 145/75 H Pulse Oximetry 93 90 Oxygen Delivery Method Nasal Cannula Nasal Cannula Oxygen Flow Rate 3 3 08/06/24 04:19 Temperature Pulse Rate Pulse Rate [Pulse Oximeter] Pulse Rate [Right Pulse Oximeter] Respiratory Rate Respiratory Rate [Right Upper Rib/Breast] Blood Pressure Blood Pressure [Left Arm] Blood Pressure [Left Upper Arm] Pulse Oximetry Oxygen Delivery Method Nasal Cannula Oxygen Flow Rate 3 Hospitalist - H&P: Result Labs Labs: Short CBC 08/06/24 Range/Units 01:55 WBC 14.25 H (4.50-11.00) K/uL Hgb 12.7 (12.0-16.0) gm/dL Hct 39.3 (33.0-51.0) % Plt Count 330 (140-440) K/uL BMP 08/06/24 01:55 Sodium 138 Potassium 3.9 Chloride 101 Carbon Dioxide 32 BUN 14 Creatinine 0.5 Glucose 120 H Calcium 8.5 Assessment and Plan Assessment and plan (1) COPD exacerbation: Status: Acute (2) Community acquired pneumonia: Status: Acute (3) Acute respiratory failure with hypoxia: Problem comment: Will need home oxygen at least in the short term. Follow up next week in clinic to revisit need for oxygen and reassess whether she can return to work. Status: Acute Plan Acute respiratory failure with hypoxia secondary to bilateral lower lobe pneumonia and COPD exacerbation Baseline uses room air Chest x-ray showed and CTA of chest shows right greater than left lower lobe pneumonias Continue ceftriaxone and azithromycin Prednisone 40 mg daily, patient received Solu-Medrol in the ER DuoNebs every 4 hours As needed albuterol Twice daily henriettaonide Right sided pleuritic chest pain likely due to pleuritis from pneumonia Ibuprofen ordered for now avoiding narcotics due to COPD exacerbation Mucinex twice daily Airway clearance Lovenox for DVT prophylaxis full code confirmed on admission Telehealth: Statement Statement Telehealth Visit: Today's History and Physical is provided via interactive telehealth by George Mancuso MD.? Patient is located at [facility].? Provider is located at [facility].? Nursing staff assisted with the patient's exam. The visit being done today meets criteria for a telehealth visit and the patient or patient?s parent/guardian is aware the visit is a telehealth visit. Camera Start Time: 05:49 Camera End Time: 05:56
--- NOTE | 2024-08-06 07:54 | PC.NURSE ---
Shift note ([id number]): Patient admitted from ED at 0405. accompanied her. Patient pleasant, alert and oriented. Reports pain under her right breast when she deep breathes. ?
--- NOTE | 2024-08-06 08:24 | PM.IMPN1 ---
Progress Note: A&P Assessment and plan (1) Acute respiratory failure with hypoxia: Problem details: -bilateral pneumonia, COPD exacerbation, viral swab negative -rocephin, azithro, prednisone -oxygen to titrate 88-92 -consider high flow -appreciate RT support Status: Acute (2) Community acquired pneumonia: Problem details: checking legionella and strep pneumo, viral swab neg no micro drawn no evidence of sepsis monitor oxygen demand Status: Acute (3) COPD exacerbation: Problem details: as above Status: Acute (4) Hypercarbia: Problem details: as above Status: Acute (5) Tobacco dependence due to cigarettes: Problem details: -nicotine replacement offered/ordered -Smoking/Tobacco 91490 >10 mins. I went over the clinical stigmata of chronic tobacco use on the body. I explained the effect on the vasculature, lungs, heart, skin. I recommended complete abstinence from tobacco products and instructed on programs available at discharge from acute care. Status: Acute Subjective Date Seen: 08/06/24 Interval history: Daily Progress Note - Hospital Medicine #:1 CC: acute hypoxic resp failure; copd exacerbation, smoker, b/l pneumonia, viral swab neg. 24 HOUR UPDATE: Shift note ([id number]): Patient admitted from ED at 0405. accompanied her. Patient pleasant, alert and oriented. Reports pain under her right breast when she deep breathes. Notable Labs, Micro, Rads, Interventions: Afebrile overnight Blood pressure 107/72 Pulse in the 90s Respiratory rate 18 Pulse ox high 80s on 3 L per nasal cannula 54.85 kilos White blood cell count is still elevated but down. Platelets are normal. Hemoglobin is normal. Blood gas shows that she is very mildly acidotic with an elevated pCO2 of 60 Redemonstrated of multifocal pneumonia as seen on same day chest radiograph. Follow-up CT in 8-12 weeks recommended. CRP elevated at 24.2, normal procalcitonin Normal electrolytes, glucose 120, normal LFTs Objective: older than stated age Vitals: see above Lungs: rhonchi, minimal rales; scattered exp wheeze. mild resp distress. Cardiac: S1S2. Disposition/Potential discharge - 2-3 days Today I spent 50minutes seeing the patient, reviewing Expanse and EPIC notes/diagnostics, discussing the care plan with our care time that includes social work, PT/OT, pharmacy, RT, [place] [facility] and documenting my impressions and plan in the medical record. Exam Const: Vital Signs, click to edit/add: Vital Signs - 24 hr 08/06/24 00:53 08/06/24 01:52 08/06/24 02:05 Temperature 98.2 F 98.2 F Pulse Rate Pulse Rate [Pulse Oximeter] Pulse Rate [Right Pulse Oximeter] 89 Respiratory Rate 18 Respiratory Rate [ Right Upper Rib/Br east] 20 Blood Pressure Blood Pressure [Le ft Arm] Blood Pressure [Le ft Upper Arm] 145/75 H Pulse Oximetry 92 Oxygen Delivery Me thod Room Air Oxygen Flow Rate 08/06/24 02:51 08/06/24 02:51 08/06/24 02:54 Temperature 98.2 F Pulse Rate Pulse Rate [Pulse Oximeter] Pulse Rate [Right Pulse Oximeter] Respiratory Rate Respiratory Rate [ Right Upper Rib/Br east] Blood Pressure Blood Pressure [Le ft Arm] Blood Pressure [Le ft Upper Arm] Pulse Oximetry 92 92 Oxygen Delivery Me thod Room Air Oxygen Flow Rate 3 08/06/24 03:00 08/06/24 03:12 08/06/24 03:31 Temperature 98.2 F Pulse Rate 105 H 99 Pulse Rate [Pulse Oximeter] Pulse Rate [Right Pulse Oximeter] 89 Respiratory Rate 20 20 20 Respiratory Rate [ Right Upper Rib/Br east] Blood Pressure 128/64 126/74 Blood Pressure [Le ft Arm] Blood Pressure [Le ft Upper Arm] 145/75 H Pulse Oximetry 81 L 88 89 Oxygen Delivery Me thod Room Air Nasal Cannula Nasal Cannula Oxygen Flow Rate 3 3 08/06/24 03:45 08/06/24 04:09 08/06/24 04:19 Temperature 98.2 F 98.2 F 98.7 F Pulse Rate 99 Pulse Rate [Pulse Oximeter] 93 Pulse Rate [Right Pulse Oximeter] 89 Respiratory Rate 20 20 18 Respiratory Rate [ Right Upper Rib/Br east] Blood Pressure 126/74 Blood Pressure [Le ft Arm] 122/71 Blood Pressure [Le ft Upper Arm] 145/75 H Pulse Oximetry 93 90 Oxygen Delivery Me thod Nasal Cannula Nasal Cannula Oxygen Flow Rate 3 3 08/06/24 04:19 Temperature Pulse Rate Pulse Rate [Pulse Oximeter] Pulse Rate [Right Pulse Oximeter] Respiratory Rate Respiratory Rate [ Right Upper Rib/Br east] Blood Pressure Blood Pressure [Le ft Arm] Blood Pressure [Le ft Upper Arm] Pulse Oximetry Oxygen Delivery Me thod Nasal Cannula Oxygen Flow Rate 3 Labs Labs: Laboratory Results - last 24 hr 08/06/24 08/06/24 01:46 01:55 WBC 14.25 H RBC 4.27 Hgb 12.7 Hct 39.3 MCV 92 MCH 30 MCHC 32 RDW Coeff of Umm 15.2 Plt Count 330 Neut % (Auto) 77.5 H Lymph % (Auto) 11.6 L Mcpherson % (Auto) 10.0 Eos % (Auto) 0.5 Baso % (Auto) 0.3 Neut # (Auto) 11.00 H Lymph # (Auto) 1.70 Mcpherson # (Auto) 1.40 H Eos # (Auto) 0.10 Baso # (Auto) 0.00 Abs Immat Gran (auto) 0.00 Imm/Tot Granulo (auto) 0.1 D-Dimer Quant (PE/DVT) 0.91 H Sodium 138 Potassium 3.9 Chloride 101 Carbon Dioxide 32 Anion Gap 5 L BUN 14 Creatinine 0.5 Estimated Creat Clear 87.02 Estimated GFR 108 Glucose 120 H Calcium 8.5 SARS-CoV-2 (PCR) Negative SARS-CoV-2 Influenza Type A (PCR) Negative PCR FLU A Influenza Type B (PCR) Negative PCR FLU B RSV (PCR) Negative PCR RSV POC Troponin I 0.00 L
[2024-08-06] MEDS: IBUPROFEN 400 MG TABLET PO ×2 (08:25→20:26)
[2024-08-06 08:46] LABS: Albumin* 3.3 g/dL (3.3-5.0)
[2024-08-06 08:49] LABS: Bilirubin Direct* 0.2 mg/dL (0.0-0.5); Bilirubin Total* 0.2 mg/dL (0.1-1.5)
[2024-08-06 08:50] LABS: Alanine Aminotransferase* 21 U/L (4-35); Alkaline Phosphatase* 75 U/L (40-150); Aspartate Amino Transferase* 28 U/L (12-35); Total Protein* 6.2 g/dL (6.0-8.3)
[2024-08-06 09:07] LABS: Procalcitonin* 0.08 ng/mL (<0.50)
[2024-08-06 09:08] LABS: HCO3 VBG 32 mmol/L (21-28); Lactate* 0.8 mmol/L (0.5-1.9); PCO2 VBG 60 mmHG (40-50); PO2 VBG 39.5 mmHG (25-47); pH VBG 7.336 (7.32-7.43)
[2024-08-06 09:45] LABS: C Reactive Protein* 24.2 mg/dL (0.5-1.0)
[2024-08-06] MEDS: guaiFENesin 600 MG TAB.ER.12H 1200 MG PO ×2 (10:04→21:49)
[2024-08-06] MEDS: SODIUM CHLORIDE 0.9 % (FLUSH) 10 ML SYRINGE 5 ML IVF ×2 (10:05→21:49)
[2024-08-06] MEDS: NICOTINE 14 mg PATCH 1 PATCH TRANSDERMA (11:15)
[2024-08-06 11:34] LABS: NT Pro B Type NatriureticPept* 104 pg/mL
[2024-08-06 11:34] LABS: Appearance Urine Clear (Clear); Bilirubin Urine Negative (Negative); Blood Urine Trace-intact (Negative); Color Urine Yellow (Yellow); Glucose Urine Negative (Negative); Ketones Urine Trace (Negative); Leukocyte Esterase Urine Negative (Negative); Nitrite Urine Negative (Negative); Protein Urine Trace (Negative); Specific Gravity Urine 1.015 (1.000-1.030); Urobilinogen Urine 0.2 (0.2-1.0)
[2024-08-06 11:41] LABS: RBC Urine 0-2 (0-2); WBC Urine 0-2 (0-5)
[2024-08-06 11:57] LABS: Legionella pneumo Ag Urine L. pneumo Negative (Negative); S pneumo Ag Urine S. pneumo Negative (Negative)
--- NOTE | 2024-08-06 14:30 | REH.PT ---
PT eval & treat orders received. Chart reviewed. Pt reports that she has been up amb ind in her room. Demo's ind with all transfers and gait without an AD. Pt on 3 L 02 via NC. Sp02 88-92% at rest. With amb in room on supplemental 02 pts sp02 drops to 82-83% and recover to > 88% in less then 30 sec with seated rest and pursed lip breathing. No functional mobility deficits. D/C PT.
[2024-08-06] MEDS: BUDESONIDE 0.25 MG/2 ML AMPUL.NEB NEB (21:51)
[2024-08-07] VITALS (15 sets, daily range): BP systolic 97–134; BP diastolic 60–81; PULSE 66–99; RESP 16–24; TEMP 36.4–37.2; O2SAT 89–96
[2024-08-07] MEDS: IPRAT-ALBUT 0.5-2.5 MG/3 ML NEB 1 NEB IH ×2 (02:32→20:16)
[2024-08-07] MEDS: ACETAMINOPHEN 325 MG TABLET 650 MG PO (03:25)
[2024-08-07] MEDS: cefTRIAXone 1 GM in 0.9 % SODIUM CHLORIDE Mini-bag 100 ML IVPB (05:34)
[2024-08-07] MEDS: AZITHROMYCIN 250 MG TABLET PO (06:18)
[2024-08-07 06:28] LABS: HCO3 VBG 36 mmol/L (21-28); PO2 VBG 42.1 mmHG (25-47); pH VBG 7.309 (7.32-7.43)
[2024-08-07 06:33] LABS: PCO2 VBG 72 mmHG (40-50)
[2024-08-07 06:48] LABS: Chloride* 101 mmol/L (96-114); Potassium* 4.5 mmol/L (3.6-5.1); Sodium* 140 mmol/L (135-149)
[2024-08-07 06:51] LABS: Creatinine* 0.4 mg/dL (0.5-1.5); Est. Creatinine Clearance* 108.77; Estimated Glomerular Filt Rate 114 ml/min
[2024-08-07 06:52] LABS: Anion Gap 2 mEq/L (7-15); Blood Urea Nitrogen* 14 mg/dL (7-30); Calcium* 8.6 mg/dL (8.4-10.6); Carbon Dioxide* 37 mmol/L (20-32); Glucose* 115 mg/dL (60-115)
[2024-08-07 07:12] LABS: C Reactive Protein* 15.5 mg/dL (0.5-1.0)
[2024-08-07 07:25] LABS: Basophils Percent Auto 0.4 % (0.0-3.0); Eosinophils Percent Auto 0.1 % (0.0-7.0); Hematocrit 37.8 % (33.0-51.0); Hemoglobin* 12.1 gm/dL (12.0-16.0); Immature Granulocytes Pct Auto 0.3 %; Lymphocytes Percent Auto 15.9 % (20-44); Mean Corpuscular HGB Conc 32 gm/dL (32-36); Mean Corpuscular Hemoglobin 30 pg (26-34); Mean Corpuscular Volume 93 fL (80-100); Monocytes Percent Auto 9.7 % (0.0-11.0); Neutrophils Percent Auto 73.6 % (42.0-72.0); Platelet Count* 361 K/uL (140-440); Red Blood Count 4.07 m/uL (4.00-5.20); White Blood Count* 13.72 K/uL (4.50-11.00)
--- NOTE | 2024-08-07 07:25 | PC.NURSE ---
Shift note ([id number]): Patient pleasant, alert and oriented. Given PRN Ibuprofen and Tylenol for c/o pain under right breast. Refused high flow O2 as she was unable to sleep with it on. O2 89-93% on 3 LPM via NC during the night. Switched back to high flow this morning per charge nurse after lab notified us of critical pCO2 level. Blood pressures soft during night. Educated patient to call for staff assist with ambulation and to sit and stand up slowly.?
[2024-08-07 07:34] LABS: Slide Review Reflex No
[2024-08-07] MEDS: 0.9 % SODIUM CHLORIDE 500 ML 500 ML IV (07:46)
--- NOTE | 2024-08-07 08:10 | RESP.RT ---
Patient changed from HFNC to BiPAP per increased CO2 uptake. Large mask, patient comfortable, HFNC on stand-by for when patient improves. BBS diminished all carbone R>L, Left lung field has noticeable inspiratory grunt.
--- NOTE | 2024-08-07 08:17 | RESP.RT ---
Patient changed from HFNC to BiPAP, per increased CO2, appears comfortable on these settings, with Large total mask interface. BBS diminished all carbone R>L, left lung field has inspiratory grunt noted.
--- NOTE | 2024-08-07 08:27 | CRLHL7_ITS ---
For Patients: As a result of the Cures Act, medical imaging exams and procedure reports are released immediately into your electronic medical record. You may view this report before your referring provider. If you have questions, please contact your health care provider. INDICATION: Respiratory compromise COMPARISON: August 06, 2024. TECHNIQUE: Portable sitting single view examination. FINDINGS: TUBES AND LINES: None. HEART AND MEDIASTINUM: The heart size is normal. The mediastinal contour appears normal for patient age. LUNGS AND PLEURAL SPACES: Diffuse airspace disease on the right most pronounced at the right base. Mild interstitial prominence on the left.No pleural effusion or pneumothorax. Similar appearance to the prior study given differences in technique OSSEOUS STRUCTURES: Age-appropriate appearance. No acute focal finding. IMPRESSION: Diffuse airspace disease on the right most pronounced at the right base. Mild interstitial prominence on the left. Similar to the prior study given differences in technique. Dictated by Bobby Ross MD @ 08/07/2024 9:16:17 AM (Electronically Signed)
[2024-08-07] MEDS: predniSONE 20 MG TABLET 40 MG PO (08:42)
[2024-08-07 10:44] LABS: ABG PCO2 56 mmHG (35-45); HCO3 ABG 34 mmol/L (21-28); Oxygen Saturation ABG 95 % (92-100); PO2 ABG 68.3 mmHG (80-105); TCO2 ABG 31 mmol/l (21-30); pH ABG 7.39 (7.35-7.45)
[2024-08-07] MEDS: NICOTINE 14 mg PATCH 1 PATCH TRANSDERMA (11:26)
--- NOTE | 2024-08-07 13:05 | P.IMPN_ITS ---
Progress Note: A&P Assessment and plan (1) Acute respiratory failure with hypoxia: Problem details: -bilateral pneumonia, COPD exacerbation, viral swab negative, Legionella and strep pneumo negative. -rocephin, azithro, prednisone -oxygen to titrate 88-92 -nasal cannula to high-flow to now BiPAP. CCU status. -appreciate RT support Status: Acute (2) BiPAP (biphasic positive airway pressure) dependence: Problem details: Started 7:30 a.m. on 08/07/2024 Status: Acute (3) Community acquired pneumonia: Problem details: Legionella and strep pneumo negative, viral swab neg no micro drawn no evidence of sepsis monitor oxygen demand Status: Acute (4) COPD exacerbation: Problem details: as above Status: Acute (5) Hypercarbia: Problem details: as above Status: Acute (6) Tobacco dependence due to cigarettes: Problem details: -nicotine replacement offered/ordered -Smoking/Tobacco 11623 >10 mins. I went over the clinical stigmata of chronic tobacco use on the body. I explained the effect on the vasculature, lungs, heart, skin. I recommended complete abstinence from tobacco products and instructed on programs available at discharge from acute care. Status: Acute Subjective Date Seen: 08/07/24 Interval history: Daily Progress Note - Hospital Medicine Day #:2 CC: acute hypoxic resp failure; copd exacerbation, smoker, b/l pneumonia, viral swab neg. 24 HOUR UPDATE: worsening dyspnea; started BiPap this morning given acidosis and increasing dyspnea. CO2 upto 72, mild acidosis. CXR showed dense right base consolidation. Afebrile overnight. Blood pressure has improved since being on BiPAP. Pulse rate 70s. Respiratory rate 16. Pulse ox 91% with BiPAP support of 10/5. FiO2 30%. Rate 10. CBC is down trending. Slowly. Hemoglobin and platelets are stable. PH after instituting BiPAP went from [id number]. PCO2 went from 72 down to 56. Electrolytes are stable. CRP down trending. Negative strep pneumo and Legionella. Negative viral swabs. One-view chest x-ray this morning Diffuse airspace disease on the right most pronounced at the right base. Mild interstitial prominence on the left. Similar to the prior study given differences in technique. No blood cultures pending. Continues on azithromycin and ceftriaxone. Home COPD meds that include Trelegy, add beer, DuoNebs. Objective: older than stated age Vitals: see above Lungs: rhonchi, minimal rales; scattered exp wheeze. mild resp distress. Cardiac: S1S2. Disposition/Potential discharge - 2-3 days Today I spent 50minutes seeing the patient, reviewing Expanse and EPIC notes/diagnostics, discussing the care plan with our care time that includes social work, PT/OT, pharmacy, RT, longterm and documenting my impressions and plan in the medical record. Exam Const: Vital Signs, click to edit/add: Vital Signs - 24 hr 08/06/24 13:25 08/06/24 13:25 08/06/24 16:26 Temperature 98.4 F Pulse Rate [Pulse Oximeter] 89 Respiratory Rate 16 Blood Pressure [Le ft Arm] 103/68 Pulse Oximetry 94 92 Oxygen Delivery Me thod High Flow Nasal Ca nnula Oxygen Flow Rate Fraction of Inspir ed Oxygen 50 08/06/24 16:26 08/06/24 19:00 08/06/24 23:00 Temperature 98.0 F 97.6 F Pulse Rate [Pulse Oximeter] 90 92 Respiratory Rate 22 Blood Pressure [Le ft Arm] 115/71 95/56 L Pulse Oximetry 92 91 89 Oxygen Delivery Me thod Nasal Cannula Nasal Cannula High Flow Nasal Ca nnula Oxygen Flow Rate 3 3 Fraction of Inspir ed Oxygen 08/06/24 23:00 08/06/24 23:00 08/07/24 00:30 Temperature Pulse Rate [Pulse Oximeter] Respiratory Rate 22 Blood Pressure [Le ft Arm] Pulse Oximetry 93 93 Oxygen Delivery Me thod High Flow Nasal Ca nnula Oxygen Flow Rate 15 Fraction of Inspir ed Oxygen 50 50 08/07/24 02:24 08/07/24 07:45 08/07/24 07:45 Temperature 98.7 F Pulse Rate [Pulse Oximeter] 86 Respiratory Rate 17 Blood Pressure [Le ft Arm] 97/60 Pulse Oximetry 89 Oxygen Delivery Me thod Nasal Cannula Oxygen Flow Rate 3 15 Fraction of Inspir ed Oxygen 30 30 08/07/24 07:45 08/07/24 07:52 08/07/24 07:52 Temperature Pulse Rate [Pulse Oximeter] Respiratory Rate 21 20 Blood Pressure [Le ft Arm] Pulse Oximetry 92 95 95 Oxygen Delivery Me thod BiPAP BiPAP Oxygen Flow Rate Fraction of Inspir ed Oxygen 30 08/07/24 07:52 08/07/24 08:03 08/07/24 08:03 Temperature 97.6 F Pulse Rate [Pulse Oximeter] 99 Respiratory Rate 20 21 Blood Pressure [Le ft Arm] 129/78 Pulse Oximetry 95 92 Oxygen Delivery Me thod BiPAP BiPAP Oxygen Flow Rate Fraction of Inspir ed Oxygen 30 30 08/07/24 10:00 08/07/24 10:45 08/07/24 10:45 Temperature Pulse Rate [Pulse Oximeter] 90 Respiratory Rate 16 Blood Pressure [Le ft Arm] 119/78 Pulse Oximetry 96 Oxygen Delivery Me thod BiPAP BiPAP Oxygen Flow Rate Fraction of Inspir ed Oxygen 30 30 08/07/24 12:00 Temperature 97.8 F Pulse Rate [Pulse Oximeter] 71 Respiratory Rate 16 Blood Pressure [Le ft Arm] 134/78 Pulse Oximetry 91 Oxygen Delivery Me thod BiPAP Oxygen Flow Rate Fraction of Inspir ed Oxygen Labs Labs: Laboratory Results - last 24 hr 08/07/24 08/07/24 06:05 10:40 WBC 13.72 H RBC 4.07 Hgb 12.1 Hct 37.8 MCV 93 MCH 30 MCHC 32 RDW Coeff of Umm 15.0 Plt Count 361 Neut % (Auto) 73.6 H Lymph % (Auto) 15.9 L [place] % (Auto) 9.7 Eos % (Auto) 0.1 Baso % (Auto) 0.4 Neut # (Auto) 10.10 H Lymph # (Auto) 2.20 [place] # (Auto) 1.30 H Eos # (Auto) 0.00 Baso # (Auto) 0.10 Abs Immat Gran (auto) 0.00 Imm/Tot Granulo (auto) 0.3 ABG pH 7.39 ABG pCO2 56 H ABG pO2 68.3 L ABG HCO3 34 H ABG Total CO2 31 H ABG O2 Saturation 95 ABG Base Excess 7.0 H VBG pH 7.309 L VBG pCO2 72 H* VBG pO2 42.1 VBG HCO3 36 H Sodium 140 Potassium 4.5 Chloride 101 Carbon Dioxide 37 H Anion Gap 2 L BUN 14 Creatinine 0.4 L Estimated Creat Clear 108.77 Estimated GFR 114 Glucose 115 Calcium 8.6 C-Reactive Protein 15.5 H
--- NOTE | 2024-08-07 15:55 | RESP.RT ---
Goal; Patient to use BiPAP at night. NC when off BiPAP per SaO2 >88%.
[2024-08-07] MEDS: guaiFENesin 600 MG TAB.ER.12H 1200 MG PO (20:15)
[2024-08-07] MEDS: SODIUM CHLORIDE 0.9 % (FLUSH) 10 ML SYRINGE 5 ML IVF (20:16)
--- NOTE | 2024-08-07 23:10 | PC.NURSE ---
Patient on 2 L NC for the evening. Sating in the mid 90's on this. Nebs and evening meds given. Patient short of breath with exertion. Placed on the BiPAP at 2245.
[2024-08-08] VITALS (20 sets, daily range): BP systolic 112–132; BP diastolic 65–84; PULSE 71–91; RESP 20–26; TEMP 36.1–37.4; O2SAT 77–93
[2024-08-08] MEDS: MELATONIN 3 MG TABLET 6 MG PO (00:23)
[2024-08-08] MEDS: IPRAT-ALBUT 0.5-2.5 MG/3 ML NEB 1 NEB IH ×4 (02:14→19:32)
[2024-08-08] MEDS: ACETAMINOPHEN 325 MG TABLET 650 MG PO (04:38)
[2024-08-08] MEDS: cefTRIAXone 1 GM in 0.9 % SODIUM CHLORIDE Mini-bag 100 ML IVPB (04:38)
[2024-08-08] MEDS: SODIUM CHLORIDE 0.9 % (FLUSH) 10 ML SYRINGE 5 ML IVF ×2 (04:43→20:32)
[2024-08-08] MEDS: AZITHROMYCIN 250 MG TABLET PO (06:08)
--- NOTE | 2024-08-08 06:34 | PC.NURSE ---
Pt alert and oriented. Pleasant and cooperative. Pt had no complaints of pain. Pt up with SBA. Pt?s VS WNL. Pt is on BiPAP overnight and tolerated well; Pt maintained saturations of 88-93%. Pt had a headache; see EMAR for intervention. Pt slept off and on during shift with Q2H breaks from BiPAP while nursing in the room-at these times Pt placed on 2 Liters nasal cannula and maintained saturations of 90-92%. Pt has SOB with activity.?
[2024-08-08 06:47] LABS: HCO3 VBG 38 mmol/L (21-28); PO2 VBG 38.2 mmHG (25-47); pH VBG 7.366 (7.32-7.43)
[2024-08-08 06:48] LABS: Basophils Percent Auto 0.3 % (0.0-3.0); Eosinophils Percent Auto 0.5 % (0.0-7.0); Hematocrit 38.4 % (33.0-51.0); Immature Granulocytes Pct Auto 0.7 %; Mean Corpuscular HGB Conc 31 gm/dL (32-36); Mean Corpuscular Hemoglobin 29 pg (26-34); Mean Corpuscular Volume 94 fL (80-100); Monocytes Percent Auto 8.6 % (0.0-11.0); Neutrophils Percent Auto 50.5 % (42.0-72.0); Platelet Count* 375 K/uL (140-440); Red Blood Count 4.09 m/uL (4.00-5.20); White Blood Count* 11.09 K/uL (4.50-11.00)
[2024-08-08 06:53] LABS: PCO2 VBG 67 mmHG (40-50)
[2024-08-08 07:07] LABS: Albumin* 3.2 g/dL (3.3-5.0); Chloride* 98 mmol/L (96-114); Sodium* 138 mmol/L (135-149)
[2024-08-08 07:10] LABS: Anion Gap 1 mEq/L (7-15); Carbon Dioxide* 39 mmol/L (20-32); Creatinine* 0.5 mg/dL (0.5-1.5); Est. Creatinine Clearance* 87.02; Estimated Glomerular Filt Rate 108 ml/min
[2024-08-08 07:11] LABS: Alanine Aminotransferase* 18 U/L (4-35); Alkaline Phosphatase* 59 U/L (40-150); Aspartate Amino Transferase* 19 U/L (12-35); Bilirubin Direct* 0.2 mg/dL (0.0-0.5); Bilirubin Total* 0.2 mg/dL (0.1-1.5); Blood Urea Nitrogen* 19 mg/dL (7-30); Calcium* 8.6 mg/dL (8.4-10.6); Glucose* 93 mg/dL (60-115); Phosphorus* 2.9 mg/dL (2.5-4.5); Total Protein* 5.7 g/dL (6.0-8.3)
[2024-08-08 07:14] LABS: C Reactive Protein* 5.4 mg/dL (0.5-1.0)
[2024-08-08 07:19] LABS: Lymphocytes Percent Auto 39.4 % (20-44)
[2024-08-08 07:20] LABS: Slide Review Reflex No
[2024-08-08] MEDS: predniSONE 20 MG TABLET 40 MG PO (07:42)
[2024-08-08 08:39] LABS: Free T4 Free Thyroxine* 0.96 ng/dL (0.70-1.85)
[2024-08-08] MEDS: guaiFENesin 600 MG TAB.ER.12H 1200 MG PO ×2 (08:43→20:31)
--- NOTE | 2024-08-08 09:06 | PM.IMPN1 ---
Progress Note: A&P Assessment and plan (1) Acute respiratory failure with hypoxia: Problem details: -bilateral pneumonia, COPD exacerbation, viral swab negative, Legionella and strep pneumo negative. -rocephin, azithro, prednisone -oxygen to titrate 88-92 -BIPAP at night -appreciate RT support Status: Acute (2) BiPAP (biphasic positive airway pressure) dependence: Problem details: -moved to CCU 08/07, back to floor care 08/08/24 Status: Acute (3) Community acquired pneumonia: Problem details: Legionella and strep pneumo negative, viral swab neg no micro drawn no evidence of sepsis monitor oxygen demand Status: Acute (4) COPD exacerbation: Problem details: as above Status: Acute (5) Hypercarbia: Problem details: as above Status: Acute (6) Tobacco dependence due to cigarettes: Problem details: -nicotine replacement offered/ordered -Smoking/Tobacco 59999 >10 mins. I went over the clinical stigmata of chronic tobacco use on the body. I explained the effect on the vasculature, lungs, heart, skin. I recommended complete abstinence from tobacco products and instructed on programs available at discharge from acute care. Status: Acute Plan - per above - patient requesting d/c home BE[facility], would be willing to home on oxygen as needed - patient plans smoking cessation Subjective Date Seen: 08/08/24 Interval history: Margoth was admitted 08/06/24 for acute hypoxic and hypercarbic respiratory failure in the setting of known COPD. She is being treated for community-acquired pneumonia as well given risk factors. Negative Flu, COVID, RSV upon admission. Requiring BiPAP overnight, mildly elevated CO2 this morning, no neurologic changes. She is tolerating supplemental oxygen, medications and cares. She would like to go home soon, although she did desaturate to 77% upon ambulating to the bathroom this morning. Exam Narrative: Exam Narrative: GEN: Alert and oriented, nontoxic, wearing supplemental oxygen HEENT: EOMIs bilaterally, no scleral icterus CV: RRR, No concerning murmurs R: Decreased bibasilar air movement, bibasilar rhonchi, no significant wheezing Ext: wwp, no concerning edema Skin: No concerning skin lesions or rashes on exposed skin Neuro: Nonfocal Psych: Appropriate Const: Vital Signs, click to edit/add: Vital Signs - 24 hr 08/07/24 10:00 08/07/24 10:45 08/07/24 10:45 Temperature Pulse Rate Pulse Rate [Pulse Oximeter] 90 Respiratory Rate 16 Blood Pressure [Le ft Arm] 119/78 Pulse Oximetry 96 Oxygen Delivery Me thod BiPAP BiPAP Oxygen Flow Rate Fraction of Inspir ed Oxygen 30 30 08/07/24 12:00 08/07/24 14:12 08/07/24 15:00 Temperature 97.8 F Pulse Rate Pulse Rate [Pulse Oximeter] 71 79 Respiratory Rate 16 20 Blood Pressure [Le ft Arm] 134/78 119/64 Pulse Oximetry 91 89 92 Oxygen Delivery Me thod BiPAP Nasal Cannula Oxygen Flow Rate 2 Fraction of Inspir ed Oxygen 08/07/24 15:00 08/07/24 16:00 08/07/24 16:00 Temperature 99 F Pulse Rate Pulse Rate [Pulse Oximeter] 84 84 Respiratory Rate 20 20 Blood Pressure [Le ft Arm] 124/78 Pulse Oximetry 93 92 Oxygen Delivery Me thod Nasal Cannula Nasal Cannula Oxygen Flow Rate 2 2 Fraction of Inspir ed Oxygen 30 08/07/24 18:00 08/07/24 20:00 08/07/24 20:00 Temperature 98.7 F 97.5 F L Pulse Rate Pulse Rate [Pulse Oximeter] 81 86 86 Respiratory Rate 20 20 20 Blood Pressure [Le ft Arm] 121/77 125/77 Pulse Oximetry 90 91 Oxygen Delivery Me thod Nasal Cannula Nasal Cannula Oxygen Flow Rate 2 2 Fraction of Inspir ed Oxygen 30 08/07/24 22:00 08/07/24 23:30 08/07/24 23:30 Temperature 98.1 F Pulse Rate Pulse Rate [Pulse Oximeter] 73 Respiratory Rate 20 24 Blood Pressure [Le ft Arm] 122/75 Pulse Oximetry 95 95 95 Oxygen Delivery Me thod BiPAP BiPAP Oxygen Flow Rate 2 Fraction of Inspir ed Oxygen 30 30 08/07/24 23:30 08/07/24 23:38 08/08/24 02:11 Temperature 97.8 F 97.0 F L Pulse Rate Pulse Rate [Pulse Oximeter] 66 71 Respiratory Rate 24 24 26 H Blood Pressure [Le ft Arm] 132/81 112/65 Pulse Oximetry 95 93 Oxygen Delivery Me thod BiPAP BiPAP Oxygen Flow Rate Fraction of Inspir ed Oxygen 30 30 08/08/24 02:57 08/08/24 04:00 08/08/24 04:47 Temperature 97.8 F Pulse Rate 79 Pulse Rate [Pulse Oximeter] 81 74 Respiratory Rate 24 20 Blood Pressure [Le ft Arm] 114/79 Pulse Oximetry 93 Oxygen Delivery Me thod BiPAP Oxygen Flow Rate Fraction of Inspir ed Oxygen 30 08/08/24 06:07 08/08/24 07:00 08/08/24 07:00 Temperature 97.5 F L Pulse Rate 82 Pulse Rate [Pulse Oximeter] 75 Respiratory Rate 22 Blood Pressure [Le ft Arm] 125/74 Pulse Oximetry 92 93 Oxygen Delivery Me thod BiPAP Oxygen Flow Rate Fraction of Inspir ed Oxygen 30 08/08/24 07:00 08/08/24 07:25 08/08/24 07:46 Temperature Pulse Rate Pulse Rate [Pulse Oximeter] Respiratory Rate 24 24 Blood Pressure [Le ft Arm] Pulse Oximetry 93 77 L Oxygen Delivery Me thod BiPAP Room Air Oxygen Flow Rate Fraction of Inspir ed Oxygen 08/08/24 07:46 Temperature 98.6 F Pulse Rate Pulse Rate [Pulse Oximeter] 89 Respiratory Rate 24 Blood Pressure [Le ft Arm] 132/79 Pulse Oximetry 88 Oxygen Delivery Me thod Nasal Cannula Oxygen Flow Rate 1.5 Fraction of Inspir ed Oxygen Labs Labs: Laboratory Results - last 24 hr 08/07/24 08/08/24 08/08/24 10:40 06:06 07:58 WBC 11.09 H RBC 4.09 Hgb 12.0 Hct 38.4 MCV 94 MCH 29 MCHC 31 L RDW Coeff of Umm 15.0 Plt Count 375 Neut % (Auto) 50.5 Lymph % (Auto) 39.4 [place] % (Auto) 8.6 Eos % (Auto) 0.5 Baso % (Auto) 0.3 Neut # (Auto) 5.60 Lymph # (Auto) 4.40 H [place] # (Auto) 1.00 H Eos # (Auto) 0.10 Baso # (Auto) 0.00 Abs Immat Gran (auto) 0.10 Imm/Tot Granulo (auto) 0.7 ABG pH 7.39 ABG pCO2 56 H ABG pO2 68.3 L ABG HCO3 34 H ABG Total CO2 31 H ABG O2 Saturation 95 ABG Base Excess 7.0 H VBG pH 7.366 VBG pCO2 67 H* VBG pO2 38.2 VBG HCO3 38 H Sodium 138 Potassium 4.0 Chloride 98 Carbon Dioxide 39 H Anion Gap 1 L BUN 19 Creatinine 0.5 Estimated Creat Clear 87.02 Estimated GFR 108 Glucose 93 Calcium 8.6 Phosphorus 2.9 Total Bilirubin 0.2 Direct Bilirubin 0.2 AST 19 ALT 18 Alkaline Phosphatase 59 C-Reactive Protein 5.4 H Total Protein 5.7 L Albumin 3.2 L TSH 15.800 H Free T4 0.96 Lab Acknowledgement Test Added
[2024-08-08] MEDS: NICOTINE 14 mg PATCH 1 PATCH TRANSDERMA (10:45)
--- NOTE | 2024-08-08 16:35 | PC.NURSE ---
Patient alert and oriented, pleasant and cooperative, educated on coughing and deep breathing, using the Aerobika, nebs and POC, patient verbalized understanding, son and present throughout shift and are very supportive, patient declining pain, 2L NC when awake at rest and with activity, this morning patient went to the bathroom without oxygen and after returning to the bed she was 77% on RA patient asymptomatic and declining SOB, took approximately 10 minutes for saturations to be 88% and greater. Using Bipap with naps and plan to use over night. HFNC this afternoon started with RT, nicotine patch, patient interested in smoking cessation on DC, tolerating regular diet.
--- NOTE | 2024-08-08 17:28 | RESP.RT ---
Patient will be on .25HFNC @30Lpm to help assist with mucus clearance and oxygenation while awake. Patient retains CO2 while sleeping and will be on BiPAP at night and while sleeping.
[2024-08-09] VITALS (12 sets, daily range): BP systolic 119–137; BP diastolic 77–97; PULSE 66–97; RESP 16–20; TEMP 36.6–37.1; O2SAT 89–97
[2024-08-09] MEDS: IPRAT-ALBUT 0.5-2.5 MG/3 ML NEB 1 NEB IH ×4 (02:12→20:38)
[2024-08-09] MEDS: 0.9 % SODIUM CHLORIDE 250 ml IV (05:28)
[2024-08-09] MEDS: cefTRIAXone 1 GM in 0.9 % SODIUM CHLORIDE Mini-bag 100 ML IVPB (05:28)
[2024-08-09 06:18] LABS: Basophils Absolute Auto 0.04 K/uL (0.00-0.30); Basophils Percent Auto 0.4 % (0.0-3.0); Hematocrit 38.1 % (33.0-51.0); Hemoglobin* 12.2 gm/dL (12.0-16.0); Immature Granulocytes Abs Auto 0.11 K/uL (0.00-0.30); Immature Granulocytes Pct Auto 1.1 %; Lymphocytes Percent Auto 47.9 % (20-44); Mean Corpuscular HGB Conc 32 gm/dL (32-36); Mean Corpuscular Hemoglobin 29 pg (26-34); Mean Corpuscular Volume 92 fL (80-100); Monocytes Percent Auto 6.7 % (0.0-11.0); Neutrophils Absolute Auto 4.37 K/uL (1.7-7.0); Neutrophils Percent Auto 42.9 % (42.0-72.0); Platelet Count* 406 K/uL (140-440); RDW Coefficient of Variation % 14.8 % (11.5-15.5); Red Blood Count 4.16 m/uL (4.00-5.20); White Blood Count* 10.18 K/uL (4.50-11.00)
[2024-08-09 06:19] LABS: HCO3 VBG 37 mmol/L (21-28); pH VBG 7.395 (7.32-7.43)
[2024-08-09 06:23] LABS: PCO2 VBG 61 mmHG (40-50)
[2024-08-09] MEDS: AZITHROMYCIN 250 MG TABLET PO (06:27)
[2024-08-09] MEDS: OMEPRAZOLE 20 MG CAPSULE DR PO (06:27)
[2024-08-09 06:41] LABS: Slide Review Reflex Yes
[2024-08-09 06:42] LABS: Slide Review Acceptable Review (Acceptable)
--- NOTE | 2024-08-09 06:51 | PC.NURSE ---
Addendum entered by Michelle Zendejas RN 08/09/24 07:29: O2 90-91% on 2 L oxygen via NC this morning. Day RN updated regarding pt's refusal to have HFNC at 0630. Original Note: End of shift note [id number]: Pt A&Ox4 and able to make needs known. She is using HFNC most of time during waking hours at 30L 25 FiO2 and 36C when awake and BiPap overnight. Pt transfers/ambulates independently in room. She has denied pain when asked with no CP or N/V noted. Pt continent of bladder. Pt tolerating regular diet. At approximately 0630 this morning, pt requesting to have NC on instead of HFNC despite encouragement and education. Neb treatments administered with use of Aerobika. Call light within reach.
[2024-08-09 06:53] LABS: Albumin* 3.2 g/dL (3.3-5.0); Chloride* 99 mmol/L (96-114)
[2024-08-09 06:54] LABS: Potassium* 3.6 mmol/L (3.6-5.1); Sodium* 137 mmol/L (135-149)
[2024-08-09 06:56] LABS: Creatinine* 0.5 mg/dL (0.5-1.5); Est. Creatinine Clearance* 87.02; Estimated Glomerular Filt Rate 108 ml/min
[2024-08-09 06:57] LABS: Alanine Aminotransferase* 17 U/L (4-35); Alkaline Phosphatase* 60 U/L (40-150); Anion Gap 0 mEq/L (7-15); Aspartate Amino Transferase* 17 U/L (12-35); Bilirubin Total* 0.2 mg/dL (0.1-1.5); Blood Urea Nitrogen* 20 mg/dL (7-30); Calcium* 8.5 mg/dL (8.4-10.6); Carbon Dioxide* 38 mmol/L (20-32); Glucose* 94 mg/dL (60-115); Total Protein* 5.6 g/dL (6.0-8.3)
[2024-08-09] MEDS: predniSONE 20 MG TABLET 40 MG PO (08:55)
[2024-08-09] MEDS: guaiFENesin 600 MG TAB.ER.12H 1200 MG PO ×2 (08:55→20:38)
[2024-08-09] MEDS: SODIUM CHLORIDE 0.9 % (FLUSH) 10 ML SYRINGE 5 ML IVF ×2 (08:56→20:39)
[2024-08-09] MEDS: Fluticasone-Umeclidin-Vilanter [Trelegy Ellipta] 200-62.5-25 mcg IH (08:56)
[2024-08-09] MEDS: ACETYLCYSTEINE 200 MG/ML soln 600 MG NEB ×3 (10:06→22:49)
[2024-08-09] MEDS: NICOTINE 14 mg PATCH 1 PATCH TRANSDERMA (11:12)
--- NOTE | 2024-08-09 14:31 | PM.IMPN1 ---
Progress Note: A&P Assessment and plan (1) Acute respiratory failure with hypoxia: Problem details: -bilateral pneumonia, COPD exacerbation, viral swab negative, Legionella and strep pneumo negative. -rocephin, azithro, prednisone -oxygen to titrate 88-92 -BIPAP at night -appreciate RT support Status: Acute (2) BiPAP (biphasic positive airway pressure) dependence: Problem details: -moved to CCU 08/07, back to floor care 08/08/24 Status: Acute (3) Community acquired pneumonia: Problem details: Legionella and strep pneumo negative, viral swab neg no micro drawn no evidence of sepsis monitor oxygen demand Status: Acute (4) COPD exacerbation: Problem details: as above Status: Acute (5) Hypercarbia: Problem details: as above Status: Acute (6) Tobacco dependence due to cigarettes: Problem details: -nicotine replacement offered/ordered -Smoking/Tobacco 76843 >10 mins. I went over the clinical stigmata of chronic tobacco use on the body. I explained the effect on the vasculature, lungs, heart, skin. I recommended complete abstinence from tobacco products and instructed on programs available at discharge from acute care. Status: Acute Time Spent With Patient Total time spent: Today I spent 50 minutes seeing the patient, reviewing Expanse and EPIC notes/diagnostics, discussing the care plan with our care time that includes social work, PT/OT, pharmacy, RT, nursing home and documenting my impressions and plan in the medical record. Subjective Date Seen: 08/09/24 Interval history: Pt seen and examined at bedside. She is still on HFNC. Pt wants to go home BEBE, family at bedside, all questions answered. Exam Narrative: Exam Narrative: Physical exam GENERAL: On HFNC, no acute distress. HEAD AND NECK: Atraumatic, normocephalic CARDIOVASCULAR: RRR. Normal S1, S2. No murmurs. RESPIRATORY: Diminished air entry B/L. No wheezes or rhonchi. GASTROINTESTINAL: Not distended, not tender to palpation. NEUROLOGY: Alert, awake, oriented X 3. Normal speech. PSYCH: Normal mood, normal affect. Const: Vital Signs, click to edit/add: Vital Signs - 24 hr 08/08/24 14:51 08/08/24 14:51 08/08/24 14:51 Temperature Pulse Rate Pulse Rate [Pulse Oximeter] Respiratory Rate 24 24 Blood Pressure [Le ft Arm] Blood Pressure [Ri ght Arm] Pulse Oximetry 89 91 Oxygen Delivery Me thod Nasal Cannula Oxygen Flow Rate 2 Fraction of Inspir ed Oxygen 08/08/24 14:55 08/08/24 15:00 08/08/24 17:27 Temperature 98.1 F Pulse Rate 85 Pulse Rate [Pulse Oximeter] 91 Respiratory Rate 24 Blood Pressure [Le ft Arm] 118/84 Blood Pressure [Ri ght Arm] Pulse Oximetry 91 Oxygen Delivery Me thod Nasal Cannula Oxygen Flow Rate 2 30 Fraction of Inspir ed Oxygen 0.25 08/08/24 18:00 08/08/24 19:27 08/08/24 19:28 Temperature 99.4 F Pulse Rate Pulse Rate [Pulse Oximeter] 79 Respiratory Rate 22 Blood Pressure [Le ft Arm] Blood Pressure [Ri ght Arm] 132/81 Pulse Oximetry 91 Oxygen Delivery Me thod High Flow Nasal Ca nnula Oxygen Flow Rate 30 Fraction of Inspir ed Oxygen 25 25 25 08/08/24 21:41 08/08/24 22:22 08/08/24 22:23 Temperature Pulse Rate Pulse Rate [Pulse Oximeter] Respiratory Rate 20 Blood Pressure [Le ft Arm] Blood Pressure [Ri ght Arm] Pulse Oximetry 92 92 Oxygen Delivery Me thod BiPAP Oxygen Flow Rate Fraction of Inspir ed Oxygen 25 21 08/08/24 22:24 08/08/24 23:00 08/09/24 02:51 Temperature 97.4 F L 97.9 F Pulse Rate Pulse Rate [Pulse Oximeter] 80 80 86 Respiratory Rate 20 20 16 Blood Pressure [Le ft Arm] Blood Pressure [Ri ght Arm] 120/77 129/77 Pulse Oximetry 92 92 Oxygen Delivery Me thod BiPAP BiPAP Oxygen Flow Rate 30 Fraction of Inspir ed Oxygen 21 30 08/09/24 08:31 08/09/24 08:31 08/09/24 08:31 Temperature 98.5 F Pulse Rate Pulse Rate [Pulse Oximeter] 97 Respiratory Rate 20 Blood Pressure [Le ft Arm] Blood Pressure [Ri ght Arm] 119/83 Pulse Oximetry 89 89 Oxygen Delivery Me thod High Flow Nasal Ca nnula Oxygen Flow Rate Fraction of Inspir ed Oxygen 25 08/09/24 08:31 08/09/24 11:13 08/09/24 11:13 Temperature 98.0 F Pulse Rate Pulse Rate [Pulse Oximeter] 97 Respiratory Rate 20 20 Blood Pressure [Le ft Arm] Blood Pressure [Ri ght Arm] 121/97 H Pulse Oximetry 89 92 Oxygen Delivery Me thod High Flow Nasal Ca nnula High Flow Nasal Ca nnula Oxygen Flow Rate Fraction of Inspir ed Oxygen 30 08/09/24 13:02 Temperature Pulse Rate Pulse Rate [Pulse Oximeter] Respiratory Rate Blood Pressure [Le ft Arm] Blood Pressure [Ri ght Arm] Pulse Oximetry Oxygen Delivery Me thod Oxygen Flow Rate Fraction of Inspir ed Oxygen 30 Labs Labs: Laboratory Results - last 24 hr 08/09/24 05:56 WBC 10.18 RBC 4.16 Hgb 12.2 Hct 38.1 MCV 92 MCH 29 MCHC 32 RDW Coeff of Umm 14.8 Plt Count 406 Neut % (Auto) 42.9 Lymph % (Auto) 47.9 H [place] % (Auto) 6.7 Eos % (Auto) 1.0 Baso % (Auto) 0.4 Neut # (Auto) 4.37 Lymph # (Auto) 4.90 H [place] # (Auto) 0.70 Eos # (Auto) 0.10 Baso # (Auto) 0.04 Abs Immat Gran (auto) 0.11 Imm/Tot Granulo (auto) 1.1 Diff Slide Review Acceptable Review VBG pH 7.395 VBG pCO2 61 H* VBG pO2 70.0 H VBG HCO3 37 H Sodium 137 Potassium 3.6 Chloride 99 Carbon Dioxide 38 H Anion Gap 0 L BUN 20 Creatinine 0.5 Estimated Creat Clear 87.02 Estimated GFR 108 Glucose 94 Calcium 8.5 Total Bilirubin 0.2 AST 17 ALT 17 Alkaline Phosphatase 60 Total Protein 5.6 L Albumin 3.2 L
--- NOTE | 2024-08-09 23:08 | PC.NURSE ---
Pt alert, oriented and vitally stable. Pt maintaining sats above 88% on high flow and bipap. Pt on room air for 45 mins per request, maintained sats above 88. Nicotine patch present on left shoulder. Pt up independently though needs help untangling cords. Pain rated 0/10 throughout shift. Pt tolerates regular diet. Pt in bed, appears to be resting, call light within reach.
[2024-08-10] VITALS (9 sets, daily range): BP systolic 118–142; BP diastolic 55–85; PULSE 77–96; RESP 13–22; TEMP 36.7–37.1; O2SAT 85–90
[2024-08-10] MEDS: IPRAT-ALBUT 0.5-2.5 MG/3 ML NEB 1 NEB IH ×4 (02:12→20:18)
[2024-08-10] MEDS: ACETYLCYSTEINE 200 MG/ML soln 600 MG NEB ×4 (05:31→22:22)
[2024-08-10] MEDS: cefTRIAXone 1 GM in 0.9 % SODIUM CHLORIDE Mini-bag 100 ML IVPB (05:33)
[2024-08-10] MEDS: 0.9 % SODIUM CHLORIDE 250 ml IV (05:33)
[2024-08-10] MEDS: OMEPRAZOLE 20 MG CAPSULE DR PO (06:37)
[2024-08-10] MEDS: AZITHROMYCIN 250 MG TABLET PO (06:37)
[2024-08-10 06:59] LABS: Hematocrit 38.7 % (33.0-51.0); Hemoglobin* 12.5 gm/dL (12.0-16.0); Mean Corpuscular HGB Conc 32 gm/dL (32-36); Mean Corpuscular Hemoglobin 30 pg (26-34); Mean Corpuscular Volume 91 fL (80-100); Platelet Count* 412 K/uL (140-440); Red Blood Count 4.24 m/uL (4.00-5.20); White Blood Count* 10.83 K/uL (4.50-11.00)
[2024-08-10 07:10] LABS: Slide Review Reflex No
[2024-08-10 07:17] LABS: Chloride* 100 mmol/L (96-114); Potassium* 3.4 mmol/L (3.6-5.1); Sodium* 138 mmol/L (135-149)
[2024-08-10 07:20] LABS: Anion Gap 1 mEq/L (7-15); Blood Urea Nitrogen* 18 mg/dL (7-30); Calcium* 8.5 mg/dL (8.4-10.6); Carbon Dioxide* 37 mmol/L (20-32); Creatinine* 0.6 mg/dL (0.5-1.5); Est. Creatinine Clearance* 72.52; Estimated Glomerular Filt Rate 103 ml/min; Glucose* 91 mg/dL (60-115)
[2024-08-10] MEDS: predniSONE 20 MG TABLET 40 MG PO (08:14)
[2024-08-10] MEDS: guaiFENesin 600 MG TAB.ER.12H 1200 MG PO ×2 (08:32→20:35)
[2024-08-10] MEDS: SODIUM CHLORIDE 0.9 % (FLUSH) 10 ML SYRINGE 5 ML IVF ×2 (08:33→20:35)
[2024-08-10] MEDS: Fluticasone-Umeclidin-Vilanter [Trelegy Ellipta] 200-62.5-25 mcg IH (08:33)
[2024-08-10] MEDS: NICOTINE 14 mg PATCH 1 PATCH TRANSDERMA (10:46)
--- NOTE | 2024-08-10 15:21 | PC.NURSE ---
Patient remains alert and orientedx4. Was on HiFlow NC at 30% at the beginning of the shift. Was transitioned to 2LNC. Patient 02 sats in the mid- upper 80s while on 2LNC. Encouraged to use flutter valve. Productive cough noted after neb treatment. Patient independent with ambulation. Up in chair all shift. Family at bedside most of the shift. Vital signs remain stable this shift.
[2024-08-10 15:26] LABS: ABG PCO2 46 mmHG (35-45); Base Excess ABG 6.7 mmol/L (-3.0-3.0); HCO3 ABG 32 mmol/L (21-28); Oxygen Saturation ABG 92 % (92-100); PO2 ABG 61.1 mmHG (80-105); TCO2 ABG 28 mmol/l (21-30); pH ABG 7.45 (7.35-7.45)
--- NOTE | 2024-08-10 16:47 | W.PM.HOT ---
Acute Home Oxygen Therapy Acute Home Oxygen Therapy Provider Note Provider Note: Patient was admitted on 08/06/24 at 06:19 and will be discharging on 08/11/2024. Patient has severe COPD with hypoxic respiratory failure and hypercarbic ventilatory failure. Arterial blood gas obtained on August 07 showed a pH of 7.39, pCO2 of 56, a PO2 of 68.3 She has been treated with inhaled bronchodilators via MDI and nebulizer which did not correct her hypercapnia. CPAP was considered and ruled out. I am prescribing bilevel noninvasive ventilatory support to treat her COPD and hypercapnia. Settings for auto BiPAP are high pressure of 15, low pressure of 5, pressure support of 7 and 1 L/min of oxygen bleed in.
--- NOTE | 2024-08-10 17:01 | PM.IMPN1 ---
Progress Note: A&P Assessment and plan (1) Acute respiratory failure with hypoxia: Problem details: -bilateral pneumonia, COPD exacerbation, viral swab negative, Legionella and strep pneumo negative. -rocephin, azithro, prednisone -oxygen to titrate 88-92 -BIPAP at night Probably needs BiPAP at home. May also need chronic supplemental oxygen per nasal cannula with activity given cautiously to avoid hypercarbia. Status: Acute (2) Hypercarbia: Problem details: Acute on chronic CO2 retention Status: Acute (3) Community acquired pneumonia: Problem details: Legionella and strep pneumo negative, viral swab neg no micro drawn no evidence of sepsis monitor oxygen demand Status: Acute (4) COPD exacerbation: Problem details: as above Status: Acute (5) Tobacco dependence due to cigarettes: Problem details: -nicotine replacement offered/ordered -Smoking/Tobacco 14803 >10 mins. I went over the clinical stigmata of chronic tobacco use on the body. I explained the effect on the vasculature, lungs, heart, skin. I recommended complete abstinence from tobacco products and instructed on programs available at discharge from acute care. Status: Acute Plan 59-year-old female with hypercarbic and hypoxic respiratory failure now clinically improving. Now working with patient and respiratory therapy for a plan to go home to manage her acute on chronic respiratory failure to include supplemental oxygen and BiPAP. Also recommend follow-up with pulmonology. Time Spent With Patient Total time spent: Total time spent today is 65 minutes discussing with patient and family, respiratory therapy and other care providers ongoing plan of care for her hypercarbic and hypoxic respiratory failure and discharge planning. Subjective Date Seen: 08/10/24 Interval history: Margoth Camacho is a 59 year old male who is who is seen for right-sided chest pain in the setting of upper respiratory symptoms. The patient has a history of COPD and asthma. Otherwise she is quite healthy. About 2 days prior to admission she developed upper respiratory symptoms with cough, myalgias. At that time she did not have any dyspnea. He awoke with right-sided chest pain under her right breast. The pain was worse with inspiration. She reported the pain was severe thus she presented to the ED without trying any medications. She has no history of VTE. No history of CAD. She is a smoker, she only uses her inhalers as needed, does not typically need them. She did not notice any fevers on the day of admission. On admission she was found to have CO2 retention with a venous blood gas showing a pCO2 of 60 that increased to 72 with supplemental oxygen. She was also hypoxic with an O2 sat of 81% on room air. She was placed on BiPAP which improved her hypercarbic and hypoxic respiratory failure. With her history of COPD and asthma she was treated with inhaled bronchodilators and prednisone. CT of the chest showed multifocal bilateral lung infiltrates. She was treated with ceftriaxone and azithromycin for this. Over the subsequent days of her hospital stay she had clinical improvement with improvement in her cough and dyspnea. Her fever has resolved. Today she is up in her room ambulating without supplemental oxygen. She reports feeling well but her O2 sats are in the low 80s, 80-82%. She does not appear to be dyspneic with this. She is anxious to go home. She reports no other symptoms of illness. Exam Narrative: Exam Narrative: She is alert and appears in no distress. O2 sats in the low 80s on room air. This improved to the upper 80s with 2 L per nasal cannula. She is oriented to her circumstances. Respirations: Diminished breath sounds throughout all lung carbone. Occasional basilar crackles. Prolonged expiratory phase. No marked wheezing. Cardiovascular: S1, S2, regular rate and rhythm. Abdomen is soft without tenderness or mass. Extremities without edema. Good peripheral perfusion. Const: Vital Signs, click to edit/add: Vital Signs - 24 hr 08/09/24 19:00 08/09/24 21:00 08/09/24 23:00 Temperature 98.8 F Pulse Rate [Bilate ral Dorsalis Pedis ] Pulse Rate [Pulse Oximeter] 78 Respiratory Rate 18 Blood Pressure [Ri t Arm] 130/93 H Pulse Oximetry 97 90 Oxygen Delivery Me thod High Flow Nasal Ca nnula Oxygen Flow Rate Fraction of Inspir ed Oxygen 25 08/09/24 23:00 08/09/24 23:00 08/10/24 05:49 Temperature 98.5 F 98.1 F Pulse Rate [Bilate ral Dorsalis Pedis ] 66 Pulse Rate [Pulse Oximeter] 87 Respiratory Rate 16 18 Blood Pressure [Ri t Arm] 137/86 134/77 Pulse Oximetry 90 90 87 L Oxygen Delivery Me thod BiPAP BiPAP Room Air Oxygen Flow Rate Fraction of Inspir ed Oxygen 08/10/24 07:40 08/10/24 07:40 08/10/24 08:25 Temperature 98.1 F Pulse Rate [Bilate ral Dorsalis Pedis ] 96 88 Pulse Rate [Pulse Oximeter] 87 Respiratory Rate 22 22 13 Blood Pressure [Ri ght Arm] 120/73 Pulse Oximetry 85 L 90 Oxygen Delivery Me thod Nasal Cannula Room Air Oxygen Flow Rate 2 Fraction of Inspir ed Oxygen 30 08/10/24 08:29 08/10/24 11:30 08/10/24 12:13 Temperature 98.2 F Pulse Rate [Bilate ral Dorsalis Pedis ] 96 Pulse Rate [Pulse Oximeter] Respiratory Rate 22 Blood Pressure [Ri ght Arm] 118/55 L Pulse Oximetry 85 L Oxygen Delivery Me thod Nasal Cannula Oxygen Flow Rate 2 Fraction of Inspir ed Oxygen 30 0.30 08/10/24 12:13 08/10/24 15:36 08/10/24 15:36 Temperature Pulse Rate [Bilate ral Dorsalis Pedis ] Pulse Rate [Pulse Oximeter] 84 Respiratory Rate 22 Blood Pressure [Ri ght Arm] Pulse Oximetry 88 Oxygen Delivery Me thod Oxygen Flow Rate 35 Fraction of Inspir ed Oxygen 0.30 08/10/24 15:36 08/10/24 15:36 08/10/24 15:39 Temperature Pulse Rate [Bilate ral Dorsalis Pedis ] Pulse Rate [Pulse Oximeter] 84 Respiratory Rate 22 22 Blood Pressure [Ri ght Arm] 121/70 Pulse Oximetry 88 88 Oxygen Delivery Me thod Nasal Cannula Nasal Cannula Nasal Cannula Oxygen Flow Rate 2 2 Fraction of Inspir ed Oxygen 0.28 Documenting provider has reviewed patient's vital signs: yes Labs Labs: Laboratory Results - last 24 hr 08/10/24 08/10/24 06:33 15:20 WBC 10.83 RBC 4.24 Hgb 12.5 Hct 38.7 MCV 91 MCH 30 MCHC 32 Plt Count 412 ABG pH 7.45 ABG pCO2 46 H ABG pO2 61.1 L ABG HCO3 32 H ABG Total CO2 28 ABG O2 Saturation 92 ABG Base Excess 6.7 H Sodium 138 Potassium 3.4 L Chloride 100 Carbon Dioxide 37 H Anion Gap 1 L BUN 18 Creatinine 0.6 Estimated Creat Clear 72.52 Estimated GFR 103 Glucose 91 Calcium 8.5
[2024-08-10] MEDS: POTASSIUM BICARB 25 MEQ EFFERVESCENT TAB PO (18:15)
--- NOTE | 2024-08-10 18:56 | PC.NURSE ---
Nursing Care Hours: [id number] Pt this shift alert and oriented, independent in the room. Stable on 2L O2, sats at 88%. Scheduled neb given, which causes pt to cough. PEP encouraged with room rounds.
[2024-08-11] MEDS: ALBUTEROL SULFATE 2.5 MG/3 ML VIAL.NEB NEB (02:05)
[2024-08-11 02:14] VITALS: BP 126/84; PULSE 71; RESP 20; TEMP 36.7; O2SAT 88
[2024-08-11] MEDS: IPRAT-ALBUT 0.5-2.5 MG/3 ML NEB 1 NEB IH ×2 (02:15→08:44)
[2024-08-11] MEDS: ACETYLCYSTEINE 200 MG/ML soln 600 MG NEB (03:38)
[2024-08-11] MEDS: OMEPRAZOLE 20 MG CAPSULE DR PO (07:01)
--- NOTE | 2024-08-11 07:27 | PC.NURSE ---
Pt alert and oriented x3. Afebrile. Pt denies pain, chest pain, SOB and N/V. Pt continues to have expiratory Ronchi in bilateral posterior bases. Pt had Nocturnal Oximetry Study done overnight with BiPAP, pt tolerated well. BiPAP off at 0700. Pt is up SBA, voiding, and tolerating a regular diet. ?Expanse down time from approximately [id number].?
[2024-08-11 08:27] LABS: ABG PCO2 49 mmHG (35-45); Base Excess ABG 8.1 mmol/L (-3.0-3.0); HCO3 ABG 34 mmol/L (21-28); Oxygen Saturation ABG 89 % (92-100); PO2 ABG 54.9 mmHG (80-105); TCO2 ABG 30 mmol/l (21-30); pH ABG 7.44 (7.35-7.45)
[2024-08-11 08:33] VITALS: BP 129/74; PULSE 82; RESP 18; TEMP 36.6; O2SAT 86
[2024-08-11] MEDS: guaiFENesin 600 MG TAB.ER.12H 1200 MG PO (08:44)
--- NOTE | 2024-08-11 09:55 | W.PM.HOT ---
Acute Home Oxygen Therapy Acute Home Oxygen Therapy Provider Note Provider Note: [id number] EVALUATION: Patient was admitted on 08/06/24 at 06:19 and will be discharging on 08/11/2024. Patient has severe COPD with hypoxic respiratory failure and hypercarbic ventilatory failure. Arterial blood gas obtained on August 07 showed a pH of 7.39, pCO2 of 56, a PO2 of 68.3 She has been treated with inhaled bronchodilators via MDI and nebulizer which did not correct her hypercapnia. CPAP was considered and ruled out. I am prescribing bilevel noninvasive ventilatory support to treat her COPD and hypercapnia. Settings for auto BiPAP are high pressure of 15, low pressure of 5, pressure support of 7 and 1 L/min of oxygen bleed in.
[2024-08-11 11:00] VITALS: BP 128/87; PULSE 81; RESP 20; TEMP 36.5; O2SAT 88
[2024-08-11] MEDS: NICOTINE 14 mg PATCH 1 PATCH TRANSDERMA (11:06)
[2024-08-11] MEDS: Fluticasone-Umeclidin-Vilanter [Trelegy Ellipta] 200-62.5-25 mcg IH (11:07)
--- NOTE | 2024-08-11 14:12 | PC.NURSE ---
Nursing Care Hours: [id number] Pt this shift calm and cooperative, alert and oriented. No c/o pain. Tolerating NC at 2L, sats 88%. Denies SOB. VSS. IV removed for discharge. Instructions went over with pt and spouse. All questions and concerns addressed. Wheeled out to vehicle in stable condition.
--- NOTE | 2024-08-11 14:43 | P.DS_ITS ---
DS: Providers Provider Date Seen: 08/11/24 Date of admission: 08/06/24 06:19 Primary care physician: Julia Butts MD Admitting Clinician: Machelle Crocker MD Attending Physician on discharge: Elia Cisneros MD Date of Discharge: 08/11/24 DS: Diagnosis Discharge Diagnosis (1) Acute respiratory failure with hypoxia: Status: Acute Problem details: -bilateral pneumonia, COPD exacerbation, viral swab negative, Legionella and strep pneumo negative. Inpatient treatment with ceftriaxone, azithromycin, prednisone. On discharge will be prescribed oxygen at 2 liters/minute at rest and 3 liters/minute with activity during the day and BiPAP with 1 L per minute of oxygen blown in at night (2) Hypercarbia: Status: Acute Problem details: Acute on chronic CO2 retention. Tolerating oxygen up to 2 liters/minute without hypercarbia (3) Community acquired pneumonia: Status: Acute Problem details: Ceftriaxone and azithromycin. (4) COPD exacerbation: Status: Acute Problem details: Steroids and inhaled bronchodilators. Respiratory support outlined above at discharge (5) Tobacco dependence due to cigarettes: Status: Acute Problem details: -nicotine replacement ordered. -Smoking/Tobacco 27672 >10 mins. I went over the clinical stigmata of chronic tobacco use on the body. I explained the effect on the vasculature, lungs, heart, skin. I recommended complete abstinence from tobacco products and instructed on programs available at discharge from acute care. DS: Summary Status at Discharge Cognitive/behavioral status at discharge: Margoth Camacho is a 59 year old male who is who is seen for right-sided chest pain in the setting of upper respiratory symptoms. The patient has a history of COPD and asthma. Otherwise she is quite healthy. About 2 days prior to admission she developed upper respiratory symptoms with cough, myalgias. At that time she did not have any dyspnea. He awoke with right-sided chest pain under her right breast. The pain was worse with inspiration. She reported the pain was severe thus she presented to the ED without trying any medications. She has no history of VTE. No history of CAD. She is a smoker, she only uses her inhalers as needed, does not typically need them. She did not notice any fevers on the day of admission. On admission she was found to have CO2 retention with a venous blood gas showing a pCO2 of 60 that increased to 72 with supplemental oxygen. She was also hypoxic with an O2 sat of 81% on room air. She was placed on BiPAP which improved her hypercarbic and hypoxic respiratory failure. With her history of COPD and asthma she was treated with inhaled bronchodilators and prednisone. CT of the chest showed multifocal bilateral lung infiltrates. She was treated with ceftriaxone and azithromycin for this. Over the subsequent days of her hospital stay she had clinical improvement with improvement in her cough and dyspnea. Her fever has resolved. Today she is up in her room ambulating without supplemental oxygen. She reports feeling well but her O2 sats are in the low 80s, 80-82%. She does not appear to be dyspneic with this. She is anxious to go home. She reports no other symptoms of illness. Functional status at discharge: independent ambulation Overall status at discharge: patient is back to baseline Time Spent with Patient Time attestation: Total time spent providing and/or coordinating discharge services: Time spent: Greater than 30 minutes Exam Narrative: Exam Narrative: She is alert and appears in no distress. Respirations are diminished throughout all lung carbone. There is no wheezing. No rales or rhonchi. Cardiovascular: S1, S2, regular rate and rhythm. No extremity edema. Const: Vital Signs, click to edit/add: Vital Signs - 24 hr 08/10/24 15:36 08/10/24 15:36 08/10/24 15:36 Temperature Pulse Rate [Bilate ral Dorsalis Pedis ] Pulse Rate [Pulse Oximeter] 84 Respiratory Rate 22 22 Blood Pressure [Ri ght Arm] Pulse Oximetry 88 88 Oxygen Delivery Me thod Nasal Cannula Oxygen Flow Rate 2 Fraction of Inspir ed Oxygen 08/10/24 15:36 08/10/24 15:39 08/10/24 20:14 Temperature 98.7 F Pulse Rate [Bilate ral Dorsalis Pedis ] 77 Pulse Rate [Pulse Oximeter] 84 Respiratory Rate 22 20 Blood Pressure [Ri ght Arm] 121/70 142/76 H Pulse Oximetry 88 90 Oxygen Delivery Me thod Nasal Cannula Nasal Cannula Nasal Cannula Oxygen Flow Rate 2 2 Fraction of Inspir ed Oxygen 0.28 0.28 08/10/24 22:24 08/10/24 22:28 08/10/24 22:28 Temperature 98.4 F Pulse Rate [Bilate ral Dorsalis Pedis ] 77 Pulse Rate [Pulse Oximeter] Respiratory Rate 20 20 Blood Pressure [Ri ght Arm] 129/85 Pulse Oximetry 90 90 Oxygen Delivery Me thod Nasal Cannula Oxygen Flow Rate 2 Fraction of Inspir ed Oxygen 08/10/24 22:28 08/11/24 02:14 08/11/24 08:33 Temperature 98.1 F Pulse Rate [Bilate ral Dorsalis Pedis ] Pulse Rate [Pulse Oximeter] 71 Respiratory Rate 20 20 Blood Pressure [Ri ght Arm] 126/84 Pulse Oximetry 90 88 86 L Oxygen Delivery Me thod Nasal Cannula BiPAP Oxygen Flow Rate 2 Fraction of Inspir ed Oxygen 08/11/24 08:33 08/11/24 08:33 08/11/24 08:38 Temperature 97.9 F Pulse Rate [Bilate ral Dorsalis Pedis ] Pulse Rate [Pulse Oximeter] 82 Respiratory Rate 18 18 Blood Pressure [Ri ght Arm] 129/74 Pulse Oximetry 86 L 86 L Oxygen Delivery Me thod Nasal Cannula Room Air Oxygen Flow Rate 2 Fraction of Inspir ed Oxygen 0.25 08/11/24 08:38 08/11/24 11:00 Temperature 97.7 F Pulse Rate [Bilate ral Dorsalis Pedis ] Pulse Rate [Pulse Oximeter] 81 Respiratory Rate 20 Blood Pressure [Ri ght Arm] 128/87 Pulse Oximetry 88 Oxygen Delivery Me thod Nasal Cannula Nasal Cannula Oxygen Flow Rate 2 Fraction of Inspir ed Oxygen 0.28 Documenting provider has reviewed patient's vital signs: yes DS: Data Data Completed and Pending Completed studies during hospitalization: Procedures Introduction of Other Gas into Respiratory Tract, Via Natural or Artificial Opening (03/27/22) Labs on day of discharge: Labs from last 24 hours 08/11/24 08/10/24 08:21 15:20 ABG pH 7.44 7.45 ABG pCO2 49 H 46 H ABG pO2 54.9 L 61.1 L ABG HCO3 34 H 32 H ABG Total CO2 30 28 ABG O2 Saturation 89 L 92 ABG Base Excess 8.1 H 6[address] scan - chest: Radiologist's impression: Indication: Right-sided chest pain, elevated D-dimer Technique: Postcontrast CTA of the chest following 95 mL Isovue 370 IV contrast. Axial MIP images obtained. Comparison: Same day chest radiograph, CTA chest performed 03/27/2022 Findings: Pulmonary arteries: No pulmonary embolism appreciated. Lungs: Multifocal [id number]-left pulmonary opacities are again noted and again suspicious for infection. Bronchial wall thickening and inspissated endobronchial debris noted. Mediastinum: No acute abnormality appreciated. Calcified atherosclerosis. Lymph nodes: Prominent nodes. Upper abdomen: No acute abnormality appreciated. Soft tissues: No acute abnormality appreciated. Bones: No acute abnormality appreciated. Impression: Redemonstration of multifocal pneumonia as seen on same day chest radiograph. Follow-up CT in 8-12 weeks recommended. Discharge Plan Discharge Disposition: Home, Self-Care Date of Admission: 08/06/24 06:19 Attending Provider on Discharge: Jeremiah Cisneros Primary Care Provider: Julia Butts Condition: Improved Anticipated Discharge Date/Time: 08/11/24 10:00 Discharge Medications: New nicotine 14 mg/24 hr Patch 24 Hour 1 patch transdermal Q24H Qty: 28 0RF Continued Atrovent HFA 17 mcg/actuation HFA aerosol inhaler 1 inh inhalation Q6H PRN Patient Comments: INHALE 2 PUFFS BY MOUTH FOUR TIMES DAILY NEEDED FOR SHORTNESS OF BREATH Trelegy Ellipta 200-62.5-25 mcg blister with device 1 ea INHALATION DAILY Discontinued fluticasone propion-salmeterol [Advair Diskus] 250-50 mcg/dose blister with device 1 inh INHALATION Q12H Patient Comments: INHALE 1 PUFF BY MOUTH TWICE DAILY 12 HOURS APART Discharge Orders: Discharge Order (Routine); Ordered 08/11/24 Ordered By: Jeremiah Cisneros Patient Education: Nicotine (Absorbed through the skin), How to Stop Smoking (DC), Using Oxygen at Home (DC), Community Acquired Pneumonia (DC), BiPAP (GEN), Acute Respiratory Failure (ED) Activity Level: No Restrictions Discharge Diet: Regular Follow Up Appointments: Julia Butts MD [Primary Care Provider] - (2-5 days) Eugene Nichole MD [Referring] - 08/13/24 2:30 pm ([facility] for post hospital follow-up.) Forms: [email or web address] Info Instructions
== END 2024-08-11 11:51 | disposition home or self-care (01) | DRG 133 ==
LOC: ED 03:43 → MEDSURG 04:04
PROVIDERS: Family Medicine; Internal Medicine; Student in an Organized Health Care Education/Training Program; Admitting Provider Internal Medicine; Emergency Provider Family Medicine; PCP Family Medicine; Visit Provider Internal Medicine
DX: J96.01 Acute respiratory failure with hypoxia (principal); J96.02 Acute respiratory failure with hypercapnia; J44.0 Chronic obstructive pulmonary disease with (acute) lower respiratory infection; J18.9 Pneumonia, unspecified organism; J44.1 Chronic obstructive pulmonary disease with (acute) exacerbation; J45.40 Moderate persistent asthma, uncomplicated; R00.1 Bradycardia, unspecified; R07.9 Chest pain, unspecified; F17.210 Nicotine dependence, cigarettes, uncomplicated
CPT/HCPCS: 36415; 36600; 71045; 71046; 71275; 80048; 80053; 80069; 80076; 81001; 82803; 83605; 83880; 84145; 84439; 84443; 84484; 85025; 85027; 85379; 86140; 87449; 87631; 87899; 93005; 94640; 94660; 94664; 94761; 99284; 99285; A9270; J0696; J2919; J7030; J7050; J7512; J7626; Q9967; S4990